=== PATIENT | female | born 1940 | race Caucasian/White ===

== ENCOUNTER → 2023-06-23 07:07 | Outpatient (REF) | payer MEDICARE, BC, SELFPAY ==
[2023-06-23] MEDS: LEXISCAN 0.400000000000000022 MG IV (08:56)
[2023-06-23] MEDS: FLUSH (NSS) 1 FLUSH IV (08:56)
== END ==
LOC: RCS 07:07
PROVIDERS: ATTENDING PHYSICIAN Internal Medicine Cardiovascular Disease; FAMILY PHYSICIAN Internal Medicine
DX: R07.9 Chest pain, unspecified (principal)
CPT/HCPCS: 78452; 93017; A9500; J2785

== ENCOUNTER → 2023-08-17 08:59 | Outpatient (REF) | payer MEDICARE, BC, SELFPAY | LOC: RCS 08:59 | PROVIDERS: ATTENDING PHYSICIAN Internal Medicine Cardiovascular Disease; FAMILY PHYSICIAN Internal Medicine | DX: I49.3 Ventricular premature depolarization (principal) | CPT/HCPCS: 93225; 93226 ==

== ENCOUNTER → 2023-09-08 14:40 | Outpatient (REF) | payer MEDICARE, BC, SELFPAY | LOC: RCS 14:40 | PROVIDERS: ATTENDING PHYSICIAN Internal Medicine Cardiovascular Disease; FAMILY PHYSICIAN Internal Medicine | DX: I49.3 Ventricular premature depolarization (principal); R06.09 Other forms of dyspnea | CPT/HCPCS: 93306 ==

== ENCOUNTER 2024-02-12 11:56 | Emergency (ER) | payer MEDICARE, BC, SELFPAY ==
[2024-02-12 12:04] VITALS: BP 116/69
[2024-02-12 12:25] LABS: % Basophils 0.9 % (0-2); % Eosinophils 0.6 % (0-6); % Immature Granulocytes 0.4 % (0-0.5); % Lymphocytes 10.1 % (20.5-51.1); Absolute Basophils 0.1 10^3/uL (0-0.2); Absolute Eosinophils 0.1 10^3/uL (0-0.7); Absolute Lymphocytes 0.8 10^3/uL (1.2-3.4); Absolute Monocytes 0.6 10^3/uL (0.1-0.6); Absolute Neutrophils 6.3 10^3/uL (1.4-6.5); Hemoglobin 11.5 g/dL (12.0-16.0); Mean Corp Hgb Conc. 32.9 g/dL (33.0-37.0); Mean Corpuscular Hgb 29.8 pg (27.0-31.0); Mean Corpuscular Volume 90.7 fL (81.0-99.0); Mean Platelet Volume 10.5 fL (7.4-10.4); Nucleated Red Blood Cells % 0 %; Platelet Count 188 10^3/uL (130-400); Red Blood Cell Count 3.86 10^6/uL (4.20-5.40); Red Cell Dist. Width 15.3 % (11.5-14.5); White Blood Cell Count 7.9 10^3/uL (4.8-10.8)
--- NOTE | 2024-02-12 12:41 | ED.GENMED ---
History of Present Illness
General
Chief Complaint: Breathing Problem
Source: patient and family
Exam Limitations: none
Time Seen by Provider: 02/12/24 12:29
Nursing documentation reviewed up to this point in time: agreed with
History of Present Illness
History of Present Illness:
83-year-old female with past medical history of hypertension myocarditis, asthma, renal insufficiency presenting to the emergency department today with concerns of shortness of breath over the past 3 days also generalized weakness upper respiratory
symptoms of cough. Took 2 COVID test which were negative. Denies any specific fevers has noticed intermittent palpitations but has had multiple Holter monitor showing frequent disease. She is currently taking metoprolol for this.
Past History
Past History
ED Past Medical History: GERD, HTN, Hypothyroidism, Other (Diverticulitis, Vasculitis, degenerative osteoarthritis, kidney stones, ureteral anomaly) and Other (Vertigo, renal insufficiency)
ED Past Surgical History: Bowel resection (for perforaction with colostomy), Cholecystectomy, Orthopedic (Bilateral hip replacement) and Tonsilectomy
Social History
Tobacco: Non-smoker
Alcohol: Occasional
Drug: None
Personal:
Living: assisted living
Employment: Retired
Family History
Family History: Other
Review of Systems
Review of Systems
Allergies reviewed?: Yes
All Other Systems: ROS reviewed and negative except as documented in HPI and ROS
Phy Exam
Physical Exam
Physical Exam:
GENERAL: Alert , in no apparent distress
EYE: pupils equal and reactive
NECK: Supple, no significant adenopathy.
ENT: Swollen boggy nasal turbinates postnasal drip, otherwise uvula midline no significant tonsillar swelling o/p clr, mmm.
CARDIAC: Regular rate and rhythm .
LUNGS: Bronchospastic cough clear breath sounds bilaterally, no acute respiratory distress, no wheezes/rales/rhonchi
ABDOMEN: Soft, without focal tenderness, no r/g, no cvat
NEUROLOGICAL: Alert and oriented, no focal neuro deficits
SKIN: Warm and dry, skin intact.
MUSCULOSKELETAL: No edema, well perfused.
PSYCH: Normal and appropriate interaction.
Scores
Heart Failure Risk
Heart Failure Risk Score: Not Applicable
Course
Orders/Labs/Results
Orders:
Orders
02/12/24 11:57
Electrocardiogram (*1) Urgent
Reason for Study: Shortness of Breath
EKG- Treatment ONCE
02/12/24 12:08
Chest [CR Chest - 2 Views ] Urgent
Comment:
Reason For Exam: SOB
02/12/24 12:13
Complete Blood Count/With Diff Urgent
Comprehensive Metabolic Panel Urgent
NT-proBNP Urgent
Troponin I Urgent
02/12/24 13:02
Azithromycin [Zithromax] 500 mg PO NOW STA
Dexamethasone Sod Phosphate [Decadron] 10 mg IV NOW STA
Ipratropium/Albuterol Sulfate [Duoneb] 3 ml INH R NOW ONE
02/12/24 13:24
Influenza A+B Rapid Molecular Urgent
SUMMER Source: Nasal Swab
Specimen Description:
Abnormal Lab Results
02/12/24
12:13
RBC 3.86 L 10^6/uL
(4.20-5.40)
Hgb 11.5 L g/dL
(12.0-16.0)
Hct 35.0 L %
(37.0-47.0)
MCHC 32.9 L g/dL
(33.0-37.0)
RDW 15.3 H %
(11.5-14.5)
MPV 10.5 H fL
(7.4-10.4)
Absolute Lymphs (auto) 0.8 L 10^3/uL
(1.2-3.4)
Neutrophils % 80.0 H %
(42.2-75.2)
Lymphocytes % 10.1 L %
(20.5-51.1)
Chloride 109 H mmol/L
(98-107)
Carbon Dioxide 18 L mmol/L
(22-30)
BUN 28 H mg/dl
(7-17)
Creatinine 1.2 H mg/dL
(0.6-1.0)
Glucose 124 H mg/dl
(70-99)
02/12/24 12:13
02/12/24 12:13
Vital Signs
Initial and Last Documented VS:
Initial Vital Signs
Temp Pulse Resp BP Pulse Ox
98.9 F 90 20 116/69 98
02/12/24 12:04 02/12/24 12:04 02/12/24 12:04 02/12/24 12:04 02/12/24 12:04
Last Documented Vital Signs
Temp Pulse Resp BP Pulse Ox
98.9 F 92 21 129/67 97
02/12/24 12:04 02/12/24 14:30 02/12/24 14:30 02/12/24 14:09 02/12/24 14:30
MDM/Problems Addressed
MDM/Problems Addressed:
84-year-old female presenting to the emergency department today with concerns of shortness of breath over the past 3 days. She has had generalized fatigue as well as a nasal congestion sore throat. She took 2 negative COVID test. On arrival here
patient afebrile vital signs are normal patient no obvious distress pulse ox in the high 90s. Patient did have a bronchospastic cough on exam concerning this was given steroid as well as breathing treatment she claims symptoms improved.
Additionally was given azithromycin as the chest x-ray did show some consolidation on the right side though may just be pleural effusion. No obvious pulmonary edema on chest x-ray no leg swelling. Recent echo without severe heart failure. BNP was
elevated but symptoms do not seem specifically consistent with heart failure. Patient was walked claimed that she feels well and would like to go home for ongoing treatment of potential viral syndrome with potential secondary inflammatory reaction.
She was written for prescription and given return precautions.
*Critical Care Note
Total Time (30-74mins, 75-104mins- exclusive of procedures): Not Applicable
ED Attending Note
-
Portions of this chart may have been created with voice recognition software.� Occasional wrong word or��sound alike� substitutions may have occurred due to the inherent limitations of voice recognition software.
Discharge Plan
Departure
Patient Disposition: Home (Routine Discharge)
Date of Disposition: 02/12/24
Time of Disposition: 14:49
Patient with high blood pressure during this ER visit?: No
Condition: Good
Covid-19: Not Applicable
Discharge Problem:
Acute bronchitis, Cough, Wheeze
Instructions: Acute Bronchitis, Adult (DC)
Prescriptions:
New
prednisone 20 mg tablet
40 mg PO DAILY 3 Days Qty: 6 0RF
azithromycin 500 mg tablet
500 mg PO DAILY 2 Days Qty: 2 0RF
albuterol sulfate 90 mcg/actuation HFA aerosol inhaler
2 puff inhalation Q6H PRN (Reason: shortness of breath or wheezing) Qty: 8.5 0RF
No Action
levothyroxine 25 MCG tablet
37.5 mcg PO DAILY@0700
hydroxychloroquine 200 MG tablet
200 mg PO BID
rosuvastatin 10 MG tablet
10 mg PO HS
clopidogrel 75 MG tablet
75 mg PO DAILY
biotin 5 MG capsule
5 mg PO DAILY
esomeprazole magnesium 40 MG capsule,delayed release(DR/EC)
40 mg PO DAILY
acetaminophen 325 MG tablet
650 mg PO Q4HPRN PRN (Reason: MILD PAIN) 0RF
prednisone 2.5 MG tablet
2.5 mg PO DAILY
metoprolol succinate 25 MG tablet extended release 24 hr
75 mg PO BID
cholecalciferol (vitamin D3) 2,000 UNITS tablet
2,000 units PO DAILY
magnesium oxide 500 MG tablet
500 mg PO QPM
lisinopril 5 MG tablet
5 mg PO DAILY
colchicine 0.6 MG tablet
0.3 mg PO BID
aspirin 81 MG tablet,delayed release (DR/EC)
81 mg PO DAILY
Referrals:
Evangelina Ortiz MD [Family Provider] -
Activity Restrictions/Additional Instructions:
You came to the emergency department today with concerns of cough shortness of breath worsening over the past few days. Here your vital signs were normal you may have a viral syndrome with secondary complication. You are started on azithromycin
please take this daily for the next 2 days. Please also use the albuterol inhaler as needed and prednisone 40 mg once daily for the next 4 days. Please follow closely with her primary care doctor for reassessment. Immediately return for any
worsening, new or concerning symptoms.
Interventions
Interventions:
*Risk Screen - Suicide Last Done: 02/12/24 12:04
*General Assessment Last Done: 02/12/24 12:04
*Neglect/Abuse Screening Last Done: 02/12/24 12:04
*ED COVID-19 Vaccine History Last Done: 02/12/24 12:51
ED- Cardiac Assessment Last Done: 02/12/24 12:49
ED- Pulmonary Assessment Last Done: 02/12/24 12:49
Discharge Date and Time
Print Language: KITTITIAN
[2024-02-12 12:52] LABS: NT-proBNP 8150 pg/ml; Troponin I < 0.012 ng/ml
[2024-02-12 12:58] LABS: ALT (SGPT) 12 U/L (0-35); AST (SGOT) 21 U/L (14-36); Albumin 4.1 g/dl (3.5-5.0); Alkaline Phosphatase 49 U/L (38-126); Blood Urea Nitrogen 28 mg/dl (7-17); Calcium 9.8 mg/dl (8.4-10.2); Carbon Dioxide 18 mmol/L (22-30); Chloride 109 mmol/L (98-107); Glucose 124 mg/dl (70-99); Potassium 4.4 mmol/L (3.5-5.1); Sodium 142 mmol/L (135-145); Total Protein 6.4 g/dl (6.3-8.2); eGFR 45.19
[2024-02-12 13:00] VITALS: BP 130/80
[2024-02-12] MEDS: DUONEB 3 ML INH (13:25)
[2024-02-12] MEDS: ZITHROMAX 500 MG PO (13:25)
[2024-02-12] MEDS: DECADRON 10 MG IV (13:26)
[2024-02-12 14:00] VITALS: BP 107/73
[2024-02-12 14:09] VITALS: BP 129/67
== END 2024-02-12 15:02 | disposition home or self-care (01) ==
LOC: EMR 11:56
PROVIDERS: EMERGENCY PHYSICIAN Emergency Medicine; FAMILY PHYSICIAN Internal Medicine
DX: J20.9 Acute bronchitis, unspecified (principal); R05.9 Cough, unspecified; R06.2 Wheezing; I10 Essential (primary) hypertension; N28.9 Disorder of kidney and ureter, unspecified; K57.92 Diverticulitis of intestine, part unspecified, without perforation or abscess without bleeding; K21.9 Gastro-esophageal reflux disease without esophagitis; E03.9 Hypothyroidism, unspecified; M19.90 Unspecified osteoarthritis, unspecified site; I34.0 Nonrheumatic mitral (valve) insufficiency; J45.909 Unspecified asthma, uncomplicated; Z79.82 Long term (current) use of aspirin; Z96.643 Presence of artificial hip joint, bilateral; Z87.442 Personal history of urinary calculi; Z85.820 Personal history of malignant melanoma of skin; Z86.79 Personal history of other diseases of the circulatory system; Z98.0 Intestinal bypass and anastomosis status; Z90.49 Acquired absence of other specified parts of digestive tract; Z88.1 Allergy status to other antibiotic agents; Z88.2 Allergy status to sulfonamides; Z88.8 Allergy status to other drugs, medicaments and biological substances
CPT/HCPCS: 99284; 96374; 94640; 71046; 80053; 83880; 84484; 85025; 87502; 93005

== ENCOUNTER 2024-03-01 10:07 | Emergency (ER) | payer MEDICARE, BC, SELFPAY ==
[2024-03-01 10:20] VITALS: BP 111/58
[2024-03-01 10:39] LABS: % Basophils 0.9 % (0-2); % Eosinophils 4.9 % (0-6); % Immature Granulocytes 0.5 % (0-0.5); % Lymphocytes 9.5 % (20.5-51.1); % Monocytes 8.2 % (1.7-9.3); Absolute Basophils 0.1 10^3/uL (0-0.2); Absolute Eosinophils 0.3 10^3/uL (0-0.7); Absolute Lymphocytes 0.5 10^3/uL (1.2-3.4); Absolute Monocytes 0.5 10^3/uL (0.1-0.6); Absolute Neutrophils 4.2 10^3/uL (1.4-6.5); Hematocrit 35.4 % (37.0-47.0); Hemoglobin 11.6 g/dL (12.0-16.0); Mean Corp Hgb Conc. 32.8 g/dL (33.0-37.0); Mean Corpuscular Hgb 30.9 pg (27.0-31.0); Mean Corpuscular Volume 94.1 fL (81.0-99.0); Mean Platelet Volume 10.3 fL (7.4-10.4); Nucleated Red Blood Cells % 0 %; Platelet Count 153 10^3/uL (130-400); Red Blood Cell Count 3.76 10^6/uL (4.20-5.40); Red Cell Dist. Width 15.6 % (11.5-14.5); White Blood Cell Count 5.5 10^3/uL (4.8-10.8)
[2024-03-01 10:52] LABS: ALT (SGPT) 14 U/L (0-35); AST (SGOT) 23 U/L (14-36); Alkaline Phosphatase 40 U/L (38-126); Blood Urea Nitrogen 21 mg/dl (7-17); Calcium 9.3 mg/dl (8.4-10.2); Carbon Dioxide 21 mmol/L (22-30); Chloride 110 mmol/L (98-107); Glucose 113 mg/dl (70-99); Potassium 4.1 mmol/L (3.5-5.1); Sodium 143 mmol/L (135-145); Total Bilirubin 0.8 mg/dl (0.2-1.3); Total Protein 6.2 g/dl (6.3-8.2); eGFR 45.19
[2024-03-01 11:03] LABS: Troponin I < 0.012 ng/ml
--- NOTE | 2024-03-01 13:30 | ED.GENMED ---
History of Present Illness
<Maria Teresa Jason MD, Resident - Last Filed: 03/01/24 15:07>
General
Chief Complaint: Breathing Problem
Source: patient
Exam Limitations: none
Time Seen by Provider: 03/01/24 13:00
History of Present Illness
History of Present Illness:
Patient is an 83-year-old female with past medical history of CHF, CAD with worsening shortness of breath and wheezing around 5 this morning while lying in bed. Patient also mentions 'tight pressure' around her chest which lasted for about 30
minutes. SOB improved with sitting up. No nausea/vomiting or diaphoresis. CP has been going on for several weeks.
Past History
<Maria Teresa Jason MD, Resident - Last Filed: 03/01/24 15:07>
Past History
ED Past Medical History: GERD, HTN, Hypothyroidism, Other (Diverticulitis, Vasculitis, degenerative osteoarthritis, kidney stones, ureteral anomaly, ) and Other (Vertigo, renal insufficiency)
ED Past Surgical History: Bowel resection (for perforaction with colostomy), Cholecystectomy, Orthopedic (Bilateral hip replacement) and Tonsilectomy
Social History
Tobacco: Non-smoker
Alcohol: Occasional
Drug: None
Personal:
Living: assisted living
Employment: Retired
Family History
Family History: Other
Review of Systems
<Maria Teresa Jason MD, Resident - Last Filed: 03/01/24 15:07>
Review of Systems
Allergies reviewed?: Yes
All Other Systems: ROS reviewed and negative except as documented in HPI and ROS
Phy Exam
<Maria Teresa Jason MD, Resident - Last Filed: 03/01/24 15:07>
General Physical Exam
General Presentation: well appearing and no apparent distress
Cardiovascular Exam
Cardiovascular Exam: regular rate/rhythm, no edema, no JVD and no murmur
Pulmonary Exam
Pulmonary Exam: lungs clear, no respiratory distress, no rales, no crackles and no wheezing
Scores
<Maria Teresa Jason MD, Resident - Last Filed: 03/01/24 15:07>
Heart Failure Risk
Heart Failure Risk Score: Not Applicable
Course
<Maria Teresa Jason MD, Resident - Last Filed: 03/01/24 15:07>
Orders/Labs/Results
Orders:
Orders
03/01/24 10:08
Electrocardiogram (*1) Urgent
Reason for Study: Chest Pain
EKG- Treatment ONCE
03/01/24 10:23
CR Chest - 2 Views Urgent
Comment:
Reason For Exam: respiratory distress
03/01/24 10:27
Complete Blood Count/With Diff Urgent
Comprehensive Metabolic Panel Urgent
Troponin I Urgent
Abnormal Lab Results
03/01/24
10:27
RBC 3.76 L 10^6/uL
(4.20-5.40)
Hgb 11.6 L g/dL
(12.0-16.0)
Hct 35.4 L %
(37.0-47.0)
MCHC 32.8 L g/dL
(33.0-37.0)
RDW 15.6 H %
(11.5-14.5)
Absolute Lymphs (auto) 0.5 L 10^3/uL
(1.2-3.4)
Neutrophils % 76.0 H %
(42.2-75.2)
Lymphocytes % 9.5 L %
(20.5-51.1)
Chloride 110 H mmol/L
(98-107)
Carbon Dioxide 21 L mmol/L
(22-30)
BUN 21 H mg/dl
(7-17)
Creatinine 1.2 H mg/dL
(0.6-1.0)
Glucose 113 H mg/dl
(70-99)
Total Protein 6.2 L g/dl
(6.3-8.2)
03/01/24 10:27
03/01/24 10:27
Vital Signs
Initial and Last Documented VS:
Initial Vital Signs
Temp Pulse Resp BP Pulse Ox
97.9 F 88 18 111/58 97
03/01/24 10:20 03/01/24 10:20 03/01/24 10:20 03/01/24 10:20 03/01/24 10:20
Last Documented Vital Signs
Temp Pulse Resp BP Pulse Ox
97.9 F 88 18 111/58 97
03/01/24 10:20 03/01/24 10:20 03/01/24 10:20 03/01/24 10:20 03/01/24 10:20
<Issac Fitzgerald MD - Last Filed: 03/01/24 15:05>
Orders/Labs/Results
Orders:
Orders
03/01/24 10:08
Electrocardiogram (*1) Urgent
Reason for Study: Chest Pain
EKG- Treatment ONCE
03/01/24 10:23
CR Chest - 2 Views Urgent
Comment:
Reason For Exam: respiratory distress
03/01/24 10:27
Complete Blood Count/With Diff Urgent
Comprehensive Metabolic Panel Urgent
Troponin I Urgent
Abnormal Lab Results
03/01/24
10:27
RBC 3.76 L 10^6/uL
(4.20-5.40)
Hgb 11.6 L g/dL
(12.0-16.0)
Hct 35.4 L %
(37.0-47.0)
MCHC 32.8 L g/dL
(33.0-37.0)
RDW 15.6 H %
(11.5-14.5)
Absolute Lymphs (auto) 0.5 L 10^3/uL
(1.2-3.4)
Neutrophils % 76.0 H %
(42.2-75.2)
Lymphocytes % 9.5 L %
(20.5-51.1)
Chloride 110 H mmol/L
(98-107)
Carbon Dioxide 21 L mmol/L
(22-30)
BUN 21 H mg/dl
(7-17)
Creatinine 1.2 H mg/dL
(0.6-1.0)
Glucose 113 H mg/dl
(70-99)
Total Protein 6.2 L g/dl
(6.3-8.2)
03/01/24 10:27
03/01/24 10:27
Vital Signs
Initial and Last Documented VS:
Initial Vital Signs
Temp Pulse Resp BP Pulse Ox
97.9 F 88 18 111/58 97
03/01/24 10:20 03/01/24 10:20 03/01/24 10:20 03/01/24 10:20 03/01/24 10:20
Last Documented Vital Signs
Temp Pulse Resp BP Pulse Ox
97.9 F 88 18 111/58 97
03/01/24 10:20 03/01/24 10:20 03/01/24 10:20 03/01/24 10:20 03/01/24 10:20
<Maria Teresa Jason MD, Resident - Last Filed: 03/01/24 15:07>
*Critical Care Note
Total Time (30-74mins, 75-104mins- exclusive of procedures): 30
ED Attending Note
<Maria Teresa Jason MD, Resident - Last Filed: 03/01/24 15:07>
-
Portions of this chart may have been created with voice recognition software.� Occasional wrong word or��sound alike� substitutions may have occurred due to the inherent limitations of voice recognition software.
<Issac Fitzgerald MD - Last Filed: 03/01/24 15:05>
ED Attending Note
Patient seen and examined by attending physician: Yes
I performed a history and physical exam of patient and discussed management with resident, I reviewed resident's note and agree with documented findings and plan of care.: Yes
ED Attending Note:
83-year-old female with shortness of breath at about 5 AM. She has had ongoing shortness of breath with exertion for a while. She is currently asymptomatic. She has had continuous chest tightness for weeks if not longer. This is also been a
chronic issue. Currently she is at her baseline.
GENERAL: Alert and oriented in no apparent distress
EYE: Orbits normal.
NECK: Supple
CARDIAC: Regular rate and rhythm without any obvious murmurs.
LUNGS: Clear breath sounds,normal
ABDOMEN: Soft, without focal tenderness or distention
NEUROLOGICAL: Alert and oriented , grossly non-focal
SKIN: Warm and dry, no rash or lesion, no discoloration, skin intact.
MUSCULOSKELETAL: No edema,no deformity.Good color
PSYCH: Normal and appropriate interaction.
EKG is stable. Troponin is negative after 6 to 7 hours of symptoms. Chest x-ray is negative. She is not in heart failure. Highly doubt pulmonary emboli. No leg pain leg swelling risk factors. No pleuritic chest pain. No hypoxia. No
tachycardia. Symptoms have resolved. Patient ambulated without difficulty. I feel she is stable for discharge to follow-up
Discharge Plan
Departure
Patient Disposition: Home (Routine Discharge)
Date of Disposition: 03/01/24
Time of Disposition: 15:04
Patient with high blood pressure during this ER visit?: No
Discharge Problem:
Transient dyspnea, Ongoing chest tightness
Instructions: Shortness of Breath (Dyspnea) (DC), Chest Pain CBC Follow Up
Prescriptions:
No Action
levothyroxine 25 MCG tablet
37.5 mcg PO DAILY@0700
hydroxychloroquine 200 MG tablet
200 mg PO BID
rosuvastatin 10 MG tablet
10 mg PO HS
clopidogrel 75 MG tablet
75 mg PO DAILY
biotin 5 MG capsule
5 mg PO DAILY
esomeprazole magnesium 40 MG capsule,delayed release(DR/EC)
40 mg PO DAILY
acetaminophen 325 MG tablet
650 mg PO Q4HPRN PRN (Reason: MILD PAIN) 0RF
prednisone 2.5 MG tablet
2.5 mg PO DAILY
metoprolol succinate 25 MG tablet extended release 24 hr
75 mg PO BID
cholecalciferol (vitamin D3) 2,000 UNITS tablet
2,000 units PO DAILY
magnesium oxide 500 MG tablet
500 mg PO QPM
lisinopril 5 MG tablet
5 mg PO DAILY
colchicine 0.6 MG tablet
0.3 mg PO BID
aspirin 81 MG tablet,delayed release (DR/EC)
81 mg PO DAILY
prednisone 20 mg tablet
40 mg PO DAILY 3 Days Qty: 6 0RF
azithromycin 500 mg tablet
500 mg PO DAILY 2 Days Qty: 2 0RF
albuterol sulfate 90 mcg/actuation HFA aerosol inhaler
2 puff inhalation Q6H PRN (Reason: shortness of breath or wheezing) Qty: 8.5 0RF
Referrals:
Evangelina Ortiz MD [Family Provider] -
Interventions
Interventions:
*Risk Screen - Suicide Last Done: 03/01/24 10:20
*General Assessment Last Done: 03/01/24 10:20
*Neglect/Abuse Screening Last Done: 03/01/24 10:20
ED- Cardiac Assessment Last Done: 03/01/24 12:30
ED- Pulmonary Assessment Last Done: 03/01/24 12:30
Discharge Date and Time
Print Language: JAPANESE
[2024-03-01 15:00] VITALS: BP 126/62
== END 2024-03-01 15:22 | disposition home or self-care (01) ==
LOC: EMR 10:07
PROVIDERS: Emergency Medicine; EMERGENCY PHYSICIAN Emergency Medicine; FAMILY PHYSICIAN Internal Medicine
DX: R06.09 Other forms of dyspnea (principal); R07.89 Other chest pain; I11.0 Hypertensive heart disease with heart failure; I50.9 Heart failure, unspecified; I25.10 Atherosclerotic heart disease of native coronary artery without angina pectoris; E03.9 Hypothyroidism, unspecified; K21.9 Gastro-esophageal reflux disease without esophagitis; Z87.442 Personal history of urinary calculi; Z90.49 Acquired absence of other specified parts of digestive tract; Z93.3 Colostomy status; Z96.643 Presence of artificial hip joint, bilateral
CPT/HCPCS: 99283; 71046; 80053; 84484; 85025; 93005

== ENCOUNTER → 2024-03-05 12:31 | Outpatient (REF) | payer MEDICARE, BC, SELFPAY | LOC: RCS 12:31 | PROVIDERS: ATTENDING PHYSICIAN Internal Medicine Cardiovascular Disease; FAMILY PHYSICIAN Internal Medicine | DX: I49.3 Ventricular premature depolarization (principal) | CPT/HCPCS: 93225; 93226 ==

== ENCOUNTER → 2024-03-07 12:22 | Outpatient (REF) | payer MEDICARE, BC, SELFPAY ==
[2024-03-07 13:44] LABS: % Basophils 1.7 % (0-2); % Eosinophils 0.2 % (0-6); % Immature Granulocytes 0.4 % (0-0.5); % Lymphocytes 16.8 % (20.5-51.1); % Monocytes 11.6 % (1.7-9.3); % Neutrophils 69.3 % (42.2-75.2); Absolute Basophils 0.1 10^3/uL (0-0.2); Absolute Lymphocytes 0.9 10^3/uL (1.2-3.4); Absolute Monocytes 0.6 10^3/uL (0.1-0.6); Absolute Neutrophils 3.8 10^3/uL (1.4-6.5); Hematocrit 34.3 % (37.0-47.0); Hemoglobin 11.1 g/dL (12.0-16.0); Mean Corp Hgb Conc. 32.4 g/dL (33.0-37.0); Mean Corpuscular Hgb 29.4 pg (27.0-31.0); Mean Platelet Volume 11.1 fL (7.4-10.4); Nucleated Red Blood Cells % 0 %; Platelet Count 182 10^3/uL (130-400); Red Blood Cell Count 3.77 10^6/uL (4.20-5.40); Red Cell Dist. Width 15.5 % (11.5-14.5); White Blood Cell Count 5.4 10^3/uL (4.8-10.8)
[2024-03-07 14:21] LABS: ALT (SGPT) 15 U/L (0-35); AST (SGOT) 24 U/L (14-36); Albumin 4.2 g/dl (3.5-5.0); Alkaline Phosphatase 41 U/L (38-126); Blood Urea Nitrogen 26 mg/dl (7-17); Calcium 9.7 mg/dl (8.4-10.2); Carbon Dioxide 25 mmol/L (22-30); Chloride 108 mmol/L (98-107); Glucose 95 mg/dl (70-99); HDL Cholesterol 65 mg/dl; LDL Cholesterol, Calculated 29 mg/dl; Potassium 4.8 mmol/L (3.5-5.1); Sodium 145 mmol/L (135-145); Total Bilirubin 0.7 mg/dl (0.2-1.3); Total Cholesterol 110 mg/dl (50-199); Total Protein 6.5 g/dl (6.3-8.2); Triglyceride 83 mg/dl (10-149); Very Low Density Lipoprotein 16 mg/dl (0-30); eGFR 37.56
[2024-03-07 14:48] LABS: TSH Reflex To Free T4 < 0.02 uIU/ml (0.47-4.68)
[2024-03-07 15:17] LABS: Free T4 0.88 ng/dl (0.78-2.19)
== END ==
LOC: REG 12:22
PROVIDERS: ATTENDING PHYSICIAN Internal Medicine
DX: D49.0 Neoplasm of unspecified behavior of digestive system (principal); I10 Essential (primary) hypertension; E03.9 Hypothyroidism, unspecified; K21.9 Gastro-esophageal reflux disease without esophagitis
CPT/HCPCS: 36415; 80053; 80061; 84439; 84443; 85025

== ENCOUNTER 2024-03-10 22:18 | Inpatient (IN) | payer MEDICARE, BC, SELFPAY ==
[2024-03-10] VITALS (7 sets, daily range): BP systolic 98–137; BP diastolic 66–89; BMI 32.4; BMI 30.8
--- NOTE | 2024-03-10 18:13 | ED.GENMED ---
History of Present Illness
General
Chief Complaint: Breathing Problem
Source: patient and family
Time Seen by Provider: 03/10/24 17:41
History of Present Illness
History of Present Illness:
This is an 83-year-old female who presents with shortness of breath. Patient states that symptoms began to worsen about a month ago. She admits that she is chronically little bit short of breath and has had vasculitis in the past. The patient
states that her shortness of breath over the last month seemed a little worse this morning. She also admits that this afternoon seemed like it again got worse. She reports that she has no pressure in the top part of her chest but feels like a vice
is grabbing her around the lower part of her chest. She denies hemoptysis. No leg swelling. No orthopnea. She does admit to exertional dyspnea. No chest pain. No palpitations. She has seen pulmonology who performed pulmonary function tests.
She states she has been told 'everything looks good'. Patient was treated with some steroids and bronchodilators and admits that she felt a little better while on it but it wears off quickly and she is not sure if it just made her brain feel like
she was doing something. No recent travel.
Past History
Past History
ED Past Medical History: GERD, HTN, Hypothyroidism, Other (Diverticulitis, Vasculitis, degenerative osteoarthritis, kidney stones, ureteral anomaly, ) and Other (Vertigo, renal insufficiency)
ED Past Surgical History: Bowel resection (for perforaction with colostomy), Cholecystectomy, Orthopedic (Bilateral hip replacement) and Tonsilectomy
Social History
Tobacco: Non-smoker
Alcohol: Occasional
Drug: None
Personal:
Living: assisted living
Employment: Retired
Family History
Family History: Other
Phy Exam
Physical Exam
Physical Exam:
CONSTITUTIONAL Patient alert and oriented to person, place and time. Well-appearing. Vital signs reviewed.
HEAD atraumatic, normocephalic.
EYES eyelids normal to inspection, Extraocular muscles intact, Conjunctiva normal, Sclera normal.
NECK normal range of motion, Trachea midline, no jugular venous distention.
RESPIRATORY CHEST No respiratory distress noted, Chest expansion equal, fine crackles at bilateral bases
CARDIOVASCULAR regular rate and rhythm, Heart sounds normal.
ABDOMEN abdomen nontender, Bowel sounds normal. No distention.
BACK normal inspection, no obvious deformities
UPPER EXTREMITY range of motion normal, Motor strength normal, no cyanosis, no edema.
LOWER EXTREMITY range of motion normal, Motor strength normal, no cyanosis, no edema.
NEURO Speech normal, No focal motor deficits, Brethren coma scale 15, Memory normal, Cranial Nerves intact to screening exam.
SKIN skin warm, dry, and normal in color.
PSYCHIATRIC patient oriented to person place and time, Normal affect.
Scores
Heart Failure Risk
Heart Failure Risk Score: Yes
History of Stroke or TIA: No
History of intubation for respiratory distress: No
Heart rate on ED arrival >/= 110: No
SaO2 <90% on arrival on room air: Yes
HR >/=110 during 3min walk test (or too ill to perform test): Yes
ECG has acute ischemic changes: No
Urea >/=12mmol/L (BUN 33.6mg/dL): No
Serum CO2>/=35mmol/L: No
Troponin I or T elevated to HI Level (0.4mg/dL): No
NT-proBNP >/=5,000ng/L (5,000pg/ml): Yes
HF Risk Score: 4
Admission Status: HIGH RISK 26.1% Consider SNF treatment or admission to hospital
Course
Orders/Labs/Results
Orders:
Orders
03/10/24 Breakfast
Regular
At Your Request: Full Participation
Fluid Restriction: 1440 mL/day (48 oz)
03/10/24 17:55
Electrocardiogram (*1) Stat
Reason for Study: Other
Other Reason for Exam: chest pain
Cardiac Monitoring- Treatment ONCE
EKG- Treatment ONCE
03/10/24 18:26
Complete Blood Count/With Diff Urgent
Comprehensive Metabolic Panel Urgent
NT-proBNP Urgent
Troponin I Urgent
03/10/24 18:51
CT Chest Pe Study Urgent
Comment:
Reason For Exam: hypoxia
03/10/24 20:55
Bumetanide [Bumex] 1 mg IV NOW STA
03/10/24 21:40
Admit/Transfer Patient As Directed
Co-Sign Provider:
Level of Care: Inpatient admission
Assign to:: Telemetry
Physician / Group: Nicholas
Diagnosis: CHF
Reason for Telemetry: Acute Heart Failure
Date to Stop Telemetry: 03/13/24
Time to Stop Telemetry: 11:00
Reason for Hospitalization: CHF
Expected length of stay greater than two midnights?: Yes
ELOS- Estimated Length of Stay in days: 3
I certify the patient meets the requirements for IP care: Yes
PRN Pain Medication Management As Directed
May give lesser potent ordered pain med per pt: Yes
preference::
Protocol:: Medication orders for pain may be administered in a
manner that supports deferring to patient preference
when the pt is:
- Requesting an ordered lesser potent pain medication.
Least to most potent pain medications are defined
as: acetaminophen < NSAID < tramadol < opioids
(morphine, oxycodone, hydromorphone).
- Requesting a lesser dose of the same medication IF
ORDERED.
- Requesting a less intrusive route of administration
if both routes are prescribed by the provider (PO <
IV).
03/10/24 21:41
Code Status As Directed
Resuscitation Status: Full Code
03/10/24 22:43
Acetaminophen [Tylenol] 650 mg PO Q4HPRN PRN
Albuterol Nebs [Ventolin Nebules] 2.5 mg INH R Q4HPRN PRN
03/10/24 22:43
Echo 2D MMode Doppler [Echo 2D MMode Color/Doppler] Routine
Reason for Study: CHF
CARDIOLOGY CONSULT Routine
Consulting Provider: Debbie Wood
Was physician already notified: No
Reason for consult: CHF
Consult Notification Routine
Specialty to Notify: Cardiology
Consult Notification Routine
Specialty to Notify: Pulmonary
PULMONARY CONSULT Routine
Consulting Provider: Ridge Marie
Was physician already notified: No
Reason for consult: ? ILD / Vasculitis
TSH Reflex To Free T4 Routine
Activity As Directed
Activity Level: Ambulate
With Assistance
EKG with chest pain [ECG as needed] As Directed
ECG as needed for:: Chest Pain
I/O [Intake/ Output] As Directed
Frequency: Per unit guidelines
Vital Signs As Directed
Frequency: Per unit guidelines
Weight As Directed
Frequency: Daily
Chest PT [Rx Chest Pt] [RESP] Routine
Special Instructions: BID
Cpap [RESP] Routine
Patient to use own unit?: No
Set Pressure (cm H2O): 8
Instructions: HS and PRN
Incentive Spirometry [Rx Incentive Spirometry] [RESP] Routine
Frequency: q1h while awake
Oxygen Therapy [O2 Therapy] [RESP] Routine
Titrate/Wean O2 to maintain O2 sat greater than (%): 94
Ot Eval And Treat Routine
PT Consult [Pt Eval And Treat] Routine
Activity Level: Ambulate
With Assistance
DX Deep Vein Thrombosis Video Routine
03/11/24 06:00
Basic Metabolic Panel IN AM
Cardiovascular Evaluation IN AM
Complete Blood Count/No Diff IN AM
Troponin I Q6H
03/11/24 08:00
Aspirin Chewable [Low Strength Aspirin] 81 mg PO DAILY
Bumetanide [Bumex] 1 mg IV Q12H
Clopidogrel Bisulfate [Plavix] 75 mg PO DAILY
Escitalopram Oxalate [Lexapro] 20 mg PO DAILY
FOLic ACID [Folvite] 3 mg PO DAILY
Guaifenesin [Mucinex] 600 mg PO Q12
Hydroxychloroquine [Plaquenil] 200 mg PO BID
esomeprazole magnesium 40 mg PO DAILY
03/11/24 12:00
Troponin I Q6H
03/11/24 18:00
Enoxaparin Sodium [Lovenox] 40 mg SC QPM
03/11/24 22:00
Rosuvastatin Calcium [Crestor] 10 mg PO HS
03/13/24 11:00
DC Protocol for Telemetry ONCE
03/17/24 08:00
Methotrexate Sodium [Methotrexate] 7.5 mg PO WEEKLY
Abnormal Lab Results
03/10/24
18:26
RBC 3.75 L 10^6/uL
(4.20-5.40)
Hgb 11.2 L g/dL
(12.0-16.0)
Hct 33.4 L %
(37.0-47.0)
RDW 15.8 H %
(11.5-14.5)
Abs Immat Gran (auto) 0.1 H 10^3/uL
(0-0.05)
Absolute Neuts (auto) 8.0 H 10^3/uL
(1.4-6.5)
Absolute Lymphs (auto) 0.2 L 10^3/uL
(1.2-3.4)
Immature Gran % 0.7 H %
(0-0.5)
Neutrophils % 91.7 H %
(42.2-75.2)
Lymphocytes % 2.7 L %
(20.5-51.1)
Chloride 109 H mmol/L
(98-107)
Carbon Dioxide 20 L mmol/L
(22-30)
BUN 30 H mg/dl
(7-17)
Creatinine 1.1 H mg/dL
(0.6-1.0)
Glucose 132 H mg/dl
(70-99)
03/10/24 18:26
03/10/24 18:26
Vital Signs
Initial and Last Documented VS:
Initial Vital Signs
Pulse Resp BP Pulse Ox
95 22 137/75 97
03/10/24 16:55 03/10/24 16:55 03/10/24 16:55 03/10/24 16:55
Last Documented Vital Signs
Temp Pulse Resp BP Pulse Ox
97.7 F 98 18 127/78 96
03/10/24 23:26 03/10/24 23:26 03/10/24 23:26 03/10/24 23:26 03/10/24 23:26
MDM/Problems Addressed
MDM/Problems Addressed:
Dyspnea, acute decompensated congestive heart failure
*Pulse Oximetry
Patient hypoxic: yes
*EKG
Interpreted by ED Provider?: Yes
Interpretation: abnormal
Rate: normal
Rhythm: sinus
[place]: normal axis
Ischemia: other (She does have some ST depression in V3 through V4. T wave versions in V5 and V6 in 1 and aVL. Anterior V3 leads to look a little bit different than prior but may be related to lead placement. Lateral leads looks similar to prior
EKG)
*[employer]er Hand Interpretation
Rate: normal
Interpretation: normal
Rhythm: sinus
*Critical Care Note
Total Time (30-74mins, 75-104mins- exclusive of procedures): Not Applicable
Data Reviewed
Source: patient and family
Prescriptions/Medications Considered But Not Given:
Consider Lasix but does report sulfa allergy. Will trial Bumex and watch closely. Doubt any concern for crossover with sulfonamide
Patient Management
Discussion with other providers: Hospitalist
Escalation/DeEscalation of care consider admission/obs:
83-year-old female with a CHF. Has been hypoxic and short of breath for some time. Admit. IV diuretics
ED Attending Note
-
Portions of this chart may have been created with voice recognition software.� Occasional wrong word or��sound alike� substitutions may have occurred due to the inherent limitations of voice recognition software.
Discharge Plan
Departure
Patient Disposition: Admit
Date of Disposition: 03/10/24
Time of Disposition: 20:49
Admit to: Telemetry
Presentation/result/management discussed w/ accepting MD/DO: Hospitalist
Discharge Problem:
CHF (congestive heart failure)
Interventions
Interventions:
*Risk Screen - Suicide Last Done: 03/10/24 18:30
*General Assessment Last Done: 03/10/24 18:30
*Neglect/Abuse Screening Last Done: 03/10/24 18:30
ED- Fall Risk Assessment Last Done: 03/10/24 18:30
*ED COVID-19 Vaccine History Last Done: 03/10/24 18:30
*Nursing Disposition Last Done: 03/10/24 22:42
ED- Cardiac Assessment Last Done: 03/10/24 17:48
ED- Pulmonary Assessment Last Done: 03/10/24 18:30
Discharge Date and Time
Discharge Date/Time: 03/10/24 22:42
[2024-03-10 18:34] LABS: % Basophils 0.3 % (0-2); % Immature Granulocytes 0.7 % (0-0.5); % Lymphocytes 2.7 % (20.5-51.1); % Monocytes 4.6 % (1.7-9.3); % Neutrophils 91.7 % (42.2-75.2); Absolute Immature Granulocytes 0.1 10^3/uL (0-0.05); Absolute Lymphocytes 0.2 10^3/uL (1.2-3.4); Absolute Monocytes 0.4 10^3/uL (0.1-0.6); Hematocrit 33.4 % (37.0-47.0); Hemoglobin 11.2 g/dL (12.0-16.0); Mean Corp Hgb Conc. 33.5 g/dL (33.0-37.0); Mean Corpuscular Hgb 29.9 pg (27.0-31.0); Mean Corpuscular Volume 89.1 fL (81.0-99.0); Mean Platelet Volume 10.2 fL (7.4-10.4); Nucleated Red Blood Cells % 0 %; Platelet Count 188 10^3/uL (130-400); Red Blood Cell Count 3.75 10^6/uL (4.20-5.40); Red Cell Dist. Width 15.8 % (11.5-14.5); White Blood Cell Count 8.8 10^3/uL (4.8-10.8)
[2024-03-10 18:49] LABS: ALT (SGPT) 16 U/L (0-35); AST (SGOT) 20 U/L (14-36); Albumin 4.2 g/dl (3.5-5.0); Alkaline Phosphatase 42 U/L (38-126); Blood Urea Nitrogen 30 mg/dl (7-17); Calcium 9.4 mg/dl (8.4-10.2); Carbon Dioxide 20 mmol/L (22-30); Chloride 109 mmol/L (98-107); Glucose 132 mg/dl (70-99); Potassium 4.5 mmol/L (3.5-5.1); Sodium 141 mmol/L (135-145); Total Bilirubin 0.7 mg/dl (0.2-1.3); Total Protein 6.4 g/dl (6.3-8.2); eGFR 50.17
[2024-03-10 18:59] LABS: NT-proBNP 9510 pg/ml; Troponin I < 0.012 ng/ml
[2024-03-10] MEDS: BUMEX 1 MG IV (21:09)
--- NOTE | 2024-03-10 21:50 | HPS.HSE ---
Family Physician
-
Family Physician: Evangelina Ortiz
Chief Complaint
-
SOB
History of Present Illness
Patient is an 83y F with PMH significant for p ANCA vasculitis, ELO on CPAP, ASCVD and CKD who presents to ED complaining of SOB x several weeks. Patient states that her current symptoms started in January of this year. She is followed by
Pulmonary and Cardiology and has seen them as well as her PCP and was seen in the ED here on two occasions for these symptoms. Patient was treated with courses of steroids (currently on her 3rd course) with perhaps temporary improvement in her
symptoms.
Patient describes feeling SOB - mostly in the AM. She has audible wheezing and sensation of tightness / band around her lower chest / upper abdomen. She reports 'loose' cough in the AM; however, it is non-productive. She denies any sore throat,
fevers / chills, etc.
She denies any palpitations, edema, abdominal distention. Not lightheaded or dizzy.
Patient follows her weight at home and notes that she has LOST weight lately.
Today patient woke from sleep around 3 AM feeling extremely short of breath. She took her albuterol inhaler without relief and remained significantly SOB until she was able to finally get back to sleep around 7 AM.
When she woke later in the day she decided to present to the ED for further evaluation.
Patient states that recent med changes include: changing metoprolol to verapamil (for PVCs), adding Nexium for suspected GERD, stopping T4 supplement based on lab results.
Medical History
Past Medical History
Past Medical History: Reports Other
Additional Past Medical History:
ASCVD / PAD / TIA
ELO on CPAP
pANCA Vasculitis (Renal)
Migraine Headaches
GERD
CKD III
Melanoma
Diverticular Disease
Past Surgical History: Reports Other
Additional Past Surgical History:
Bilateral MARCELINA
SMA Stenting
T&A
Cholecystectomy
Colectomy / Colostomy (Perf Diverticulitis)
JUDY / Appendectomy / Colostomy Takedown
PVC / VT Ablation
Social History
Tobacco: Non-smoker
Alcohol: Occasional
Drug: None
Family History
Family History: Not pertinent
Allergies / Home Medications
Allergies reflects when Allergies were last updated in [facility].
Home Medications with original date entered in [facility]
Allergy/Medication List:
Allergies
Allergy/AdvReac Type Severity Reaction Status Date / Time
dapsone Allergy 'small Verified 03/10/24 17:01
blisters'
pantoprazole sodium Allergy 'MAKES ME Verified 03/10/24 17:01
[From Protonix] SICK'
Sulfa (Sulfonamide Allergy Hives Verified 03/10/24 17:01
Antibiotics)
sulfamethoxazole Allergy Hives Verified 03/10/24 17:01
[From Bactrim DS]
trimethoprim Allergy Hives Verified 03/10/24 17:01
[From Bactrim DS]
Home Medications
hydroxychloroquine 200 mg tablet 200 mg PO BID RA 07/15/19
rosuvastatin 10 mg tablet 10 mg PO HS High cholesterol 12/31/19
clopidogrel 75 mg tablet 75 mg PO DAILY Heart disease/condition 01/03/20
biotin 5 mg capsule 5 mg PO DAILY Supplement 04/30/20
esomeprazole magnesium 40 mg capsule,delayed release 40 mg PO DAILY Gastrointestinal issue 04/30/20
aspirin 81 mg tablet,delayed release 81 mg PO DAILY Blood clot prevention/tx 08/19/20
cholecalciferol (vitamin D3) 50 mcg (2,000 unit) tablet 2,000 units PO DAILY Supplement 08/19/20
albuterol sulfate 90 mcg/actuation aerosol inhaler 2 puff inhalation Q6H PRN shortness of breath or wheezing #8.5 grams 02/12/24
escitalopram oxalate 20 mg tablet 20 mg PO DAILY 03/10/24
folic acid 5 mg capsule 15 mg PO DAILY 03/10/24
methotrexate sodium 2.5 mg tablet 7.5 mg PO SA 03/10/24
verapamil 180 mg tablet,extended release 180 mg PO DAILY 03/10/24
Review of Systems
-
History Source: Patient
A 12 point ROS was completed and negative except as noted: Yes
Constitutional: Reports Weight Loss and Fatigue; Denies Fever or Chills
EENT: Denies Sore Throat
Respiratory: Reports Cough and Trouble Breathing; Denies Hemoptysis
Cardiac: Reports Chest Pain; Denies Diaphoresis, Palpitations or Syncope
Abdomen/GI: Denies Abdominal Pain, Nausea, Vomiting or Diarrhea
: Denies Dysuria, Frequency or Flank Pain
Musculoskeletal: Denies Joint Pain or Edema
Neurological: Denies Dizzy or Headache
Psych: Denies Depression or Anxiety
Physical Exam
Vital Signs
Vital Signs
Pulse Resp BP Pulse Ox
86 16 137/89 92
03/10/24 21:09 03/10/24 18:15 03/10/24 21:09 03/10/24 18:30
Physical Exam
General: Other (83y F in no acute distress. Some noted conversational dyspnea.)
HEENT: Moist mucous membranes, PERRLA and Other (No JVD or HJR.)
Respiratory: Other (Few bibasilar rales. Decreased BS in general throughout. Mild expiratory wheezes.)
Cardiac: S1/S2 and Regular Rhythm; No Murmur
GI: Soft, Non Tender, Non Distended and Normal Bowel Sounds
Musculoskeletal: No Clubbing, No Cyanosis and No Edema
Neuro: AO x 3
Laboratory Results
-
03/10/24 18:26
03/10/24 18:26
Laboratory Results
Total Bilirubin 0.7 mg/dl (0.2-1.3) 03/10/24 18:26
AST 20 U/L (14-36) 03/10/24 18:26
ALT 16 U/L (0-35) 03/10/24 18:26
Alkaline Phosphatase 42 U/L (38-126) 03/10/24 18:26
Troponin I < 0.012 ng/ml 03/10/24 18:26
Impression/Plan
-
A/P: Patient is an 83y F with PMH significant for ASCVD, PVCs, ELO and remote history of pANCA vasculitis who presents to ED complaining of several weeks of shortness of breath.
Acute HF - Unknown Type
- Admit for further evaluation and treatment.
- Patient with weeks of symptoms and no improvement / no lasting improvement with steroids, nebs, etc.
- CT done in the ED today show ground glass opacities and bilateral effusions c/w volume overload / pulm edema.
- BNP is significantly elevated - though patient states she has been losing weight at home.
- No signs of right-sided heart failure.
- CT is changed compared to prior (2020) - which showed subpleural scarring / bronchiectasis but no effusions or active ground glass opacities.
- Continue bumetanide BID for now.
- Check Echo.
- Cardio evaluation for additional recommendations.
pANCA Vasculitis
- Apparently stable x years.
- Patient remains on hydroxychloroquine and MTX for maintenance.
- Recent dyspnea / CT findings potentially related ; however, no pulmonary symptoms with initial episode of vasculitis and no significant or lasting improvement in current symptoms despite multiple courses of steroids.
- Will hold further systemic steroids for now.
- Pulmonary evaluation for additional recommendations.
ELO on CPAP
- Stable. Continue nightly PAP therapy.
ASCVD
- Stable. EKG with non-specific T wave abnormality that is unchanged from multiple prior tracings.
- Troponin undetectable.
- Continue ASA, statin, etc.
- Echo as noted above.
GERD
- Started on Nexium recently for possibility that current dyspnea / cough is related to GERD.
- Unfortunately, patient cannot tolerate pantoprazole and can only take Nexium.
- Can continue Nexium if patient can have this brought in from home.
CKD III
- Stable. Renal function is at / near known baseline.
- Follow for changes with diuresis.
DVT Prophylaxis: Lovenox
Code Status: Full
[2024-03-11 00:56] LABS: Troponin I < 0.012 ng/ml
--- NOTE | 2024-03-11 02:45 | PTCARENOTE ---
Pt admitted from ED to 3W. Pt AAOx3. Ambulated from stretcher to bed with assist x1. VSS, on engine monitor. Pt remains on 2L O2 at this time. Purewick in place. Pt oriented to room and call fernando within reach.
[2024-03-11 03:45] VITALS: BP 110/60
[2024-03-11 05:29] LABS: Troponin I < 0.012 ng/ml
[2024-03-11 05:41] LABS: Hematocrit 32.3 % (37.0-47.0); Hemoglobin 10.7 g/dL (12.0-16.0); Mean Corp Hgb Conc. 33.1 g/dL (33.0-37.0); Mean Corpuscular Hgb 29.4 pg (27.0-31.0); Mean Corpuscular Volume 88.7 fL (81.0-99.0); Mean Platelet Volume 10.8 fL (7.4-10.4); Platelet Count 189 10^3/uL (130-400); Red Blood Cell Count 3.64 10^6/uL (4.20-5.40); Red Cell Dist. Width 15.5 % (11.5-14.5); White Blood Cell Count 7.2 10^3/uL (4.8-10.8)
[2024-03-11 06:00] VITALS: BMI 30.3
[2024-03-11 06:12] LABS: Blood Urea Nitrogen 30 mg/dl (7-17); Calcium 8.8 mg/dl (8.4-10.2); Carbon Dioxide 21 mmol/L (22-30); Chloride 108 mmol/L (98-107); Estimated Creatinine Clearance 39 ml/min; Glucose 92 mg/dl (70-99); HDL Cholesterol 72 mg/dl; LDL Cholesterol, Calculated 35 mg/dl; Potassium 4.3 mmol/L (3.5-5.1); Sodium 142 mmol/L (135-145); Total Cholesterol 121 mg/dl (50-199); Triglyceride 72 mg/dl (10-149); Very Low Density Lipoprotein 14 mg/dl (0-30); eGFR 50.17
[2024-03-11 06:39] LABS: TSH Reflex To Free T4 0.16 uIU/ml (0.47-4.68)
[2024-03-11 07:08] LABS: Free T4 0.84 ng/dl (0.78-2.19)
[2024-03-11 07:29] VITALS: BP 120/67
--- NOTE | 2024-03-11 08:19 | CON.CAR ---
Addendum entered and electronically signed by Dhruv Chen MD (Ellie) 03/11/24 13:53:
I saw and examined the patient.
The BEHAVIORAL PEDIATRICIAN's note was reviewed and I agree with the note.
Comment: 83-year-old female with past medical history of frequent PVCs, mild to moderate AR, interstitial lung disease, rheumatoid arthritis, vasculitis, PAD, and hypertension who is here for evaluation of dyspnea. She reports that she has had
worsening dyspnea over the past 1 month which finally brought her to the hospital. Her echocardiogram here showed a drop in ejection fraction from 50% to 30-35%. Her previously mild MR is now moderate to severe. Patient reports that she has not
had any chest pain. She is fairly active and has been limited for the past month due to her shortness of breath. She denies palpitations, leg swelling, presyncope, or syncope. She considers her dry weight to be 177 pounds but has not weighed
herself in the past month. Labs here notable for negative troponin and creatinine at baseline (1.1). Telemetry reveals 4 beats of NSVT, otherwise in sinus rhythm.
In summary, this is an 83-year-old female with new heart failure with reduced ejection fraction. Possible etiologies include ischemic, medication induced (was recently started on verapamil for PVCs), PVC mediated, or other nonischemic
cardiomyopathy. She will undergo left heart catheterization tomorrow, and if this is not revealing she will likely need cardiac MRI. In terms of GDMT, she would like to wait until after cardiac catheterization tomorrow to decide about her medical
regimen. She would like to minimize meds and feels like she is already taking a lot. We discussed the cost of Entresto and SGLT2 inhibitors. She will think about this and let us know after catheterization. In the meantime we will switch her
verapamil to carvedilol. If she is amenable, this admission she should be started on ACEi/ARB/ARNi, MRA, and SGLT2i. Continue diuresis with IV Bumex twice daily.
Original Note:
Consultation
Consultation Request
Date/Time Consultation Requested: 03/10/24 4825
Date/Time Consultation Performed: 03/11/24814
Requesting Provider: Dr. Peterson
Performing Provider: Esther FOWLER for Dr. Chen
Reason for Consultation: CHF
Medical History
-
Chief Complaint: SOB
History of Present Illness:
83 y/o female with frequent PVC's (improved with ablation and medical management), mild to moderate AR, interstitial lung disease, rheumatoid arthritis, pANCA vasculitis, PAD s/p SMA stent, hx perimyocarditis, CKD, and hypertension who is here for
evaluation of SOB. Briefly, she has chronic mild SOB for past two years. Then, last month she became more SOB and came to the ER, where she was given abx, steroids, and breathing treatment. She thinks it may have helped, but then last week, she
developed SOB again and yesterday it became quite bad, so she came to the ER. She has been admitted for further evaluation. She is on O2 by nasal cannula and is being diuresed. We are consulted for acute HF. She thinks her weight is up 2 lbs. She
had PND overnight Mon-Monday. Denies orthopnea or edema. Has non-productive cough. There is no chest pain, but her lower rib area feels tight. She has followed with Dr. Ridley, but has recently been seeing Dr. Fortune for EP.
Past Medical History
Past Medical History: Arrhythmias, GERD, HTN, Hypercholesterolemia, Valvular Disease and Other (as above)
Social History
Tobacco: Non-Smoker
Family History
Family History: Reviewed & Not Pertinent
Allergies / Home Medications
Allergy/AdvReac Type Severity Reaction Status Date / Time
dapsone Allergy 'small Verified 03/10/24 17:01
blisters'
pantoprazole sodium Allergy 'MAKES ME Verified 03/10/24 17:01
[From Protonix] SICK'
Sulfa (Sulfonamide Allergy Hives Verified 03/10/24 17:01
Antibiotics)
sulfamethoxazole Allergy Hives Verified 03/10/24 17:01
[From Bactrim DS]
trimethoprim Allergy Hives Verified 03/10/24 17:01
[From Bactrim DS]
�Medication �Instructions �Recorded �Confirmed �Type
hydroxychloroquine 200 mg tablet 200 mg PO BID RA 07/15/19 03/10/24 History
rosuvastatin 10 mg tablet 10 mg PO HS High cholesterol 12/31/19 03/10/24 History
clopidogrel 75 mg tablet 75 mg PO DAILY Heart 01/03/20 03/10/24 History
disease/condition
biotin 5 mg capsule 5 mg PO DAILY Supplement 04/30/20 03/10/24 History
esomeprazole magnesium 40 mg 40 mg PO DAILY Gastrointestinal 04/30/20 03/10/24 History
capsule,delayed release issue
aspirin 81 mg tablet,delayed 81 mg PO DAILY Blood clot 08/19/20 03/10/24 History
release prevention/tx
cholecalciferol (vitamin D3) 50 2,000 units PO DAILY Supplement 08/19/20 03/10/24 History
mcg (2,000 unit) tablet
albuterol sulfate 90 mcg/actuation 2 puff inhalation Q6H PRN 02/12/24 03/10/24 Rx
aerosol inhaler shortness of breath or wheezing
#8.5 grams
escitalopram oxalate 20 mg tablet 20 mg PO DAILY 03/10/24 03/10/24 History
folic acid 5 mg capsule 15 mg PO DAILY 03/10/24 03/10/24 History
methotrexate sodium 2.5 mg tablet 7.5 mg PO SA 03/10/24 03/10/24 History
verapamil 180 mg tablet,extended 180 mg PO DAILY 03/10/24 03/10/24 History
release
Review of Systems
-
History Source: Patient
All other systems: Negative unless noted
Constitutional: Weight Gain (2 lbs)
Respiratory: Cough and Trouble Breathing
Physical Exam
Vital Signs
Temp Pulse Resp BP Pulse Ox
97.9 F 81 17 120/67 96
03/11/24 07:29 03/11/24 07:29 03/11/24 07:29 03/11/24 07:29 03/11/24 07:29
Lab Results
03/11/24 05:01
03/11/24 05:00
Troponin I < 0.012 ng/ml 03/11/24 05:01
Xcj-W-Qeilfycinrg Pept 9510 pg/ml 03/10/24 18:26
Physical Exam
General: Well Developed, Well Nourished and No Apparent Distress
HEENT: Normocephalic and Anicteric
Respiratory: Crackles (b/l bases) and Other (on O2 by NC)
Cardiac: Regular Rhythm
Genito-urinary: Clear Urine
Musculoskeletal: No Edema
Skin: Warm and Dry
Neuro: AO x 3
Psych: Calm
Impression / Plan
-
Acute HF: type unknown
-CT scan and BNP suggestive of CHF, also with rales to bases on lungs. Feels better this AM after diuresis and O2.
-updated echo pending, last echo with EF 50%
-agree with IV diuresis, which requires intensive monitoring. Bumex has been chosen and has been effective- continue.
-CHF education, diet, monitoring (weight, I/O, renal function)
PVC's:
-stable on verapamil, recent Holter as below
-hx ablation 2019, Dr. Wood
SMA stent:
-follows with vascular
-on ASA and statin
AR: mild to moderate on last echo
-assess on updated echo
Interstitial Lung disease:
-pulmonary consulted
-recently treated for bronchitis with steroids
Hypertension:
-stable
HX RA
Vasculitis
Data Reviewed
-
EKG: Tracing Personally Visualized and interpreted (SR with 1st degree AVB, IC RBBB, ST/T abnormalities - anterior and lateral)
CT Scan: Report Reviewed by me (Findings suspicious for congestive heart failure, given the presence of moderate bilateral pleural effusions, groundglass opacity, slightly more localized/confluent groundglass opacity in the left perihilar
distribution, and interstitial prominence.)
Medical Tests (Nuc Med, Echo etc): Report Reviewed by me (holter 03/05/24: NSR, Av 89 bpm, range 68-112 bpm. No bradycardia. Almost no atrial ectopy. Occasional PVCs (1% burden). No VT. A few ventricular couplets. Symptoms correlated with NSR.)
and Other (echo 09/08/23: Mildly reduced left ventricular systolic function. Left ventricular ejection fraction is 50% by Alvarez's method. Global hypokinesis. Stage I diastolic dysfunction suggestive of abnormal relaxation. Aortic sclerosis
with mild to moderate aortic regurgitation.)
Labs: Labs Reviewed by me
Old Records: Reviewed (cath 2020 no obstructive CAD)
[2024-03-11] MEDS: BUMEX 1 MG IV ×2 (08:50→20:51)
[2024-03-11] MEDS: MUCINEX 600 MG PO ×2 (08:53→20:51)
[2024-03-11] MEDS: LEXAPRO 20 MG PO (08:53)
[2024-03-11] MEDS: PLAVIX 75 MG PO (08:53)
[2024-03-11] MEDS: LOW STRENGTH ASPIRIN 81 MG PO (08:53)
[2024-03-11] MEDS: FOLVITE 3 MG PO (08:53)
[2024-03-11] MEDS: PLAQUENIL 200 MG PO ×2 (08:53→20:51)
--- NOTE | 2024-03-11 09:12 | W.PN.HOSP.TC ---
Today's Communication/Plan
-
IV Bumex. Cardiac cath in a.m.
Assessment / Plan
Assessment / Plan
Physical exam:
General: Acute on chronically ill
HEENT: Normocephalic, Atraumatic and Moist Mucous Membranes
Respiratory: Coarse bilateral crackles in the bases; Negative Wheezes, Rales or Rhonchi
Cardiac: Regular Rhythm and S1/S2
GI: Soft, Nontender and Nondistended
Musculoskeletal: No Clubbing, No Cyanosis and not much bilateral lower extremity edema
Neuro: Awake, Alert and Oriented
Psych: Calm
A/P:
Acute HFrEF:
Etiology unclear so workup in progress.
IV diuretics, Bumex 1 mg every 12 hours
BNP upon admission
Monitor strict I/O
Monitor daily weight
Monitor renal function and electrolytes
Reviewed latest echocardiogram on our system--> echocardiogram revealed EF 30 to 35% global hypokinesis, stage II diastolic dysfunction. Also moderate severe mitral regurgitation and mild mitral stenosis as well as moderate aortic regurgitation and
mild aortic stenosis.
Continue guideline-directed medical therapy for heart failure (GDMT)--> verapamil changed to carvedilol for now. Rest of medications will be decided down the road.
Fluid restriction
Salt restriction
Heart failure education
Follow up clinical response
Cardiology consult appreciated
Plan for cardiac cath tomorrow
Acute hypoxic respiratory insufficiency:
Likely related to above
There is also interstitial lung disease, but mild
No evidence of PE by CTA
Cardio and pulmonary consulted
Titrate oxygen
CKD:
Avoid nephrotoxic
Continue monitor renal function
History of P ANCA vasculitis:
She had renal biopsy in the past
On methotrexate and hydroxychloroquine
Follows up with rheumatology as outpatient
History of rheumatoid arthritis:
On methotrexate and hydroxychloroquine.
Follows up with rheumatology as outpatient
She has been weaned off steroids since 2020
History of SMA stenosis:
Status post SMA stent in the past
Hypertension:
Continue current meds
Hyperlipidemia:
Continue statin, rosuvastatin 10 mg p.o. nightly
GERD:
Continue PPI
Depression:
Continue escitalopram 20 mg p.o. daily
History of ischemic colitis with colon resection and colostomy revision and incarcerated umbilical hernia in 2018
History of melanoma incision in 2007
DVT prophylaxis:
Lovenox SQ
CODE STATUS:
Full code
Total time spent on today's encounter was 52 minutes which included time spent in counseling the patient/family regarding diagnosis and treatment plan as listed above, goals of care, and symptom management. Case was discussed with nursing staff,
specialists, and care coordinators/case management. All labs and imaging personally reviewed by me. Remainder the time spent in detailed review of previous records, lab data, imaging, and other medical provider documentation.
Anticipated Discharge: > 48 hours
Subjective/Interval History
-
Date of Service: March 11, 2024
Patient feels better today, less shortness of breath, no chest pain. Afebrile
Objective Data
-
Labs:
Laboratory Results
03/11/24 03/11/24
05:00 05:01
WBC 7.2
Hgb 10.7 L
Hct 32.3 L
Plt Count 189
Sodium 142
Potassium 4.3
Chloride 108 H
Carbon Dioxide 21 L
BUN 30 H
Creatinine 1.1 H
Glucose 92
Calcium 8.8
Vital Signs:
Vital Signs
Temp Pulse Resp BP Pulse Ox
97.9 F 81 17 120/67 96
03/11/24 07:29 03/11/24 07:29 03/11/24 07:29 03/11/24 07:29 03/11/24 07:29
I&O
03/10/24 03/11/24 03/12/24
06:59 06:59 06:59
Intake Total 240 / 240
Output Total 1300 / 1300
Balance -1060 / -1060
[2024-03-11 11:11] VITALS: BP 116/64
[2024-03-11] MEDS: PREVACID 30 MG PO (12:44)
[2024-03-11 12:47] LABS: Troponin I < 0.012 ng/ml
--- NOTE | 2024-03-11 13:13 | CON.INTV ---
Consultation
Consultation Request
Date/Time Consultation Requested: 03/11
Date/Time Consultation Performed: 03/11
Reason for Consultation: Shortness of breath
Medical History
-
History of Present Illness:
History obtained from the chart, outpatient and inpatient medical records and from the patient. Pleasant 83-year-old female with history of valvular disease, vasculitis, rheumatoid arthritis, peripheral arterial disease with SMA stent presents with
increased shortness of breath over the past month, hospitalized twice, now admitted for recurrent shortness of breath. Throughout this, patient admits to lower abdominal discomfort, nonpleuritic. Describes dry cough with no hemoptysis, nausea,
diarrhea, falls, syncope, PND, orthopnea. Cough is worse in the morning, resolves throughout the day. Upon arrival to [facility], pulse 95, breathing at 22, blood pressure 137/75, 97% saturation. Abnormal EKG noted. CT chest confirmed
groundglass opacities with effusions consistent with pulmonary edema. Patient admits to gaining 3 pounds and proBNP was noted to be elevated. Patient admitted for heart failure. We are asked to comment on pulmonary process 03/11
Presently, patient feels breathing and lower chest and upper abdominal discomfort have improved
Of note, patient does describe dysphagia and coughing with eating and drinking
.
PMH: P-ANCA vasculitis on chronic hydroxychloroquine and methotrexate, history of SMA stenosis status post SMA stent, sleep apnea on CPAP therapy, GERD, chronic kidney disease, history of melanoma, hemolytic anemia (dapsone), pericarditis,
peripheral eosinophilia. History of ischemic colitis, umbilical hernia repair, colon resection with colostomy 2017, ureteral surgery 1979. History of cholecystectomy, tonsillectomy, arthroplasty, cataract surgery
Past Medical History
Past Medical History: None (See above)
Past Surgical History: None (See above)
Social History
Tobacco: Non-smoker
Alcohol: None
Drug: None
Employment: Not Employed
Family History
Family History: Other (Father from stroke at age 86, mother at age 78 from supranuclear palsy. Sister at age 67, melanoma. 2 sons with sleep apnea. )
Allergies / Home Medications
Allergies
Allergy/AdvReac Type Severity Reaction Status Date / Time
dapsone Allergy 'small Verified 03/10/24 17:01
blisters'
pantoprazole sodium Allergy 'MAKES ME Verified 03/10/24 17:01
[From Protonix] SICK'
Sulfa (Sulfonamide Allergy Hives Verified 03/10/24 17:01
Antibiotics)
sulfamethoxazole Allergy Hives Verified 03/10/24 17:01
[From Bactrim DS]
trimethoprim Allergy Hives Verified 03/10/24 17:01
[From Bactrim DS]
Home Medications
�Medication �Instructions �Recorded �Confirmed �Last Taken �Type
hydroxychloroquine 200 mg tablet 200 mg PO BID Rheumatoid arthritis 07/15/19 03/10/24 08/19/20 History
rosuvastatin 10 mg tablet 10 mg PO HS High cholesterol 12/31/19 03/10/24 08/18/20 History
clopidogrel 75 mg tablet 75 mg PO DAILY Heart 01/03/20 03/10/24 08/19/20 History
disease/condition
biotin 5 mg capsule 5 mg PO DAILY Supplement 04/30/20 03/10/24 08/19/20 History
esomeprazole magnesium 40 mg 40 mg PO DAILY Gastrointestinal 04/30/20 03/10/24 08/19/20 History
capsule,delayed release issue
aspirin 81 mg tablet,delayed 81 mg PO DAILY Blood clot 08/19/20 03/10/24 08/19/20 History
release prevention/tx
cholecalciferol (vitamin D3) 50 2,000 units PO DAILY Supplement 08/19/20 03/10/24 08/19/20 History
mcg (2,000 unit) tablet
albuterol sulfate 90 mcg/actuation 2 puff inhalation Q6H PRN 02/12/24 03/10/24 Unknown Rx
aerosol inhaler shortness of breath or wheezing
#8.5 grams
escitalopram oxalate 20 mg tablet 20 mg PO DAILY Depression 03/10/24 03/10/24 Unknown History
methotrexate sodium 2.5 mg tablet 7.5 mg PO SA rheumatoid arthritis 03/10/24 03/10/24 Unknown History
verapamil 180 mg tablet,extended 180 mg PO DAILY Blood Pressure 03/10/24 03/10/24 Unknown History
release
folic acid 1 mg tablet 3 mg PO DAILY Supplement 03/11/24 03/11/24 Unknown History
Review of Systems
-
All other systems: Negative unless noted
Vitals / Labs / Diagnostic Testing
Vital Signs
Temp Pulse Resp BP Pulse Ox
98.0 F 81 18 116/64 95
03/11/24 11:11 03/11/24 11:11 03/11/24 11:11 03/11/24 11:11 03/11/24 11:11
Lab Data
03/11/24 05:01
03/11/24 05:00
Diagnostic Testing:
Physical Exam
-
HEENT: Normocephalic and Anicteric
Cardiovascular: S1/S2, Regular Rhythm, Murmur (n), Rub (n) and Peripheral Edema (n)
Respiratory: Wheeze (n), Rales (n), Rhonchi (n) and Non-Labored Respirations
GI: Soft, Non Distended and Non Tender
Neurology: Awake, Alert, Oriented and No Motor Deficits
Skin: Good Color
General: Comfortable
Assessment
-
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
with recurrent respiratory issues over the past month, treated for acute bronchitis and heart failure. We are asked to comment on pulmonary process 03/11/2024
Acute respiratory insufficiency
Acute congestive heart failure
Weight gain, elevated proBNP
Bilateral interstitial changes, pleural effusions
Suspected pulm edema
History of mild interstitial disease per CT chest 2020
Normal PFT, DLCO 61%
Central sleep apnea, AHI 89
On CPAP, auto SV
History of valvular disease, mitral regurgitation/aortic regurgitation
Conditions present prior to admission
History of SMA stenosis status post SMA stent
p-ANCA vasculitis status post renal biopsy
Methotrexate/hydroxychloroquine, follows dermatology
History of rheumatoid arthritis, followed by rheumatology
Weaned off steroids 2020
Chronic kidney disease
Hypertension
Perforated colon with ischemic colitis, colon resection, colostomy revision 12/24/2017
Incarcerated umbilical hernia 12/20/2017
GERD
History of melanoma
Back incision 2007
Hypothyroidism
History of pleuritis/pericarditis
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
Peripheral eosinophilia
Plan/recommendations
At this time, patient appears to be comfortable
Extremely complex medical history
CT imaging consistent with possible pulm edema, bilateral pleural effusions and groundglass abnormality
Although patient with complex medical history, patient describes 3 pound weight gain, cough upon waking up in the morning
Significantly elevated proBNP noted
Moving forward
Await echocardiogram
Cardiology following
Prior history of eosinophilia and ANCA vasculitis noted. She also has a distant history of interstitial disease back in 2020 but this resolved
Doubt autoimmune process at this time but will need to follow
Consider swallowing evaluation if workup is negative as patient does describe occasional episodes of dysphagia/choking
Reviewed with patient at length
We will follow
--- NOTE | 2024-03-11 15:41 | CM ---
Alert awake oriented patient who lives at [facility] .She is independent in driving and all activates of daily living.She use Bipap from [employer] and walker at home. She is on oxygen here but not at home.Offered VN she
declined need . Pt given prices of medicines MD requested .She said she does not want to start on anything new. MD notified.
[facility] in past . [facility] hx
Pharmacy [facility] [address] Ortiz
PLAN Home declined VN
[2024-03-11 15:42] VITALS: BP 127/66
[2024-03-11] MEDS: LOVENOX 40 MG SC (17:58)
[2024-03-11 19:37] VITALS: BP 100/52
[2024-03-11] MEDS: COREG 6.25 MG PO (20:51)
[2024-03-11] MEDS: CRESTOR 10 MG PO (21:00)
[2024-03-11 22:13] VITALS: BMI 30.3
[2024-03-11 23:14] VITALS: BP 98/51
[2024-03-12] VITALS (13 sets, daily range): BP systolic 94–117; BP diastolic 47–66; BMI 29.8
[2024-03-12 05:41] LABS: Hematocrit 36.9 % (37.0-47.0); Hemoglobin 12.4 g/dL (12.0-16.0); Mean Corp Hgb Conc. 33.6 g/dL (33.0-37.0); Mean Corpuscular Hgb 30.5 pg (27.0-31.0); Mean Corpuscular Volume 90.7 fL (81.0-99.0); Mean Platelet Volume 10.7 fL (7.4-10.4); Platelet Count 194 10^3/uL (130-400); Red Blood Cell Count 4.07 10^6/uL (4.20-5.40); Red Cell Dist. Width 15.3 % (11.5-14.5); White Blood Cell Count 6.7 10^3/uL (4.8-10.8)
[2024-03-12 06:04] LABS: Blood Urea Nitrogen 41 mg/dl (7-17); Calcium 9.4 mg/dl (8.4-10.2); Carbon Dioxide 27 mmol/L (22-30); Chloride 100 mmol/L (98-107); Estimated Creatinine Clearance 33 ml/min; Glucose 98 mg/dl (70-99); Sodium 140 mmol/L (135-145); eGFR 41.06
[2024-03-12] MEDS: PREVACID 30 MG PO (07:39)
[2024-03-12] MEDS: COREG 6.25 MG PO ×2 (07:39→20:05)
[2024-03-12] MEDS: PLAQUENIL 200 MG PO ×2 (07:40→20:05)
[2024-03-12] MEDS: MUCINEX 600 MG PO ×2 (07:40→20:05)
[2024-03-12] MEDS: PLAVIX 75 MG PO (07:40)
[2024-03-12] MEDS: BUMEX 1 MG IV (07:40)
[2024-03-12] MEDS: LOW STRENGTH ASPIRIN 81 MG PO (07:40)
[2024-03-12] MEDS: FOLVITE 3 MG PO (07:40)
[2024-03-12] MEDS: LEXAPRO 20 MG PO (07:40)
--- NOTE | 2024-03-12 08:56 | W.PN.HOSP.TC ---
Today's Communication/Plan
-
IV Bumex. cardiac cath
Assessment / Plan
Assessment / Plan
Physical exam:
General: Acute on chronically ill
HEENT: Normocephalic, Atraumatic and Moist Mucous Membranes
Respiratory: Coarse bilateral crackles in the bases; Negative Wheezes, Rales or Rhonchi
Cardiac: Regular Rhythm and S1/S2
GI: Soft, Nontender and Nondistended
Musculoskeletal: No Clubbing, No Cyanosis and not much bilateral lower extremity edema
Neuro: Awake, Alert and Oriented
Psych: Calm
A/P:
Acute HFrEF:
Etiology unclear so workup in progress.
IV diuretics, Bumex 1 mg every 12 hours
BNP upon admission
Monitor strict I/O
Monitor daily weight
Monitor renal function and electrolytes
Reviewed latest echocardiogram on our system--> echocardiogram revealed EF 30 to 35% global hypokinesis, stage II diastolic dysfunction. Also moderate severe mitral regurgitation and mild mitral stenosis as well as moderate aortic regurgitation and
mild aortic stenosis.
Continue guideline-directed medical therapy for heart failure (GDMT)--> verapamil changed to carvedilol for now. Rest of medications will be decided down the road.
Fluid restriction
Salt restriction
Heart failure education
Follow up clinical response
Cardiology consult appreciated
Plan for cardiac cath today
Acute hypoxic respiratory insufficiency:
Likely related to above
There is also interstitial lung disease, but mild
No evidence of PE by CTA
Cardio and pulmonary consulted
Titrate oxygen
CKD:
Avoid nephrotoxic
Continue monitor renal function
History of P ANCA vasculitis:
She had renal biopsy in the past
On methotrexate and hydroxychloroquine
Follows up with rheumatology as outpatient
History of rheumatoid arthritis:
On methotrexate and hydroxychloroquine.
Follows up with rheumatology as outpatient
She has been weaned off steroids since 2020
History of SMA stenosis:
Status post SMA stent in the past
Hypertension:
Continue current meds
Hyperlipidemia:
Continue statin, rosuvastatin 10 mg p.o. nightly
GERD:
Continue PPI
Depression:
Continue escitalopram 20 mg p.o. daily
History of ischemic colitis with colon resection and colostomy revision and incarcerated umbilical hernia in 2019
History of melanoma incision in 2007
DVT prophylaxis:
Lovenox SQ
CODE STATUS:
Full code
Total time spent on today's encounter was 52 minutes which included time spent in counseling the patient/family regarding diagnosis and treatment plan as listed above, goals of care, and symptom management. Case was discussed with nursing staff,
specialists, and care coordinators/case management. All labs and imaging personally reviewed by me. Remainder the time spent in detailed review of previous records, lab data, imaging, and other medical provider documentation.
Anticipated Discharge: 24 - 48 hours
Subjective/Interval History
-
Date of Service: March 12, 2024
patient less sob, no cp, afebrile
Objective Data
-
Labs:
Laboratory Results
03/12/24
05:12
WBC 6.7
Hgb 12.4
Hct 36.9 L
Plt Count 194
Sodium 140
Potassium 4.0
Chloride 100
Carbon Dioxide 27
BUN 41 H
Creatinine 1.3 H
Glucose 98
Calcium 9.4
Vital Signs:
Vital Signs
Temp Pulse Resp BP Pulse Ox
97.5 F 62 12 114/66 93
03/12/24 07:27 03/12/24 07:39 03/12/24 07:27 03/12/24 07:39 03/12/24 07:27
I&O
03/11/24 03/12/24 03/13/24
06:59 06:59 06:59
Intake Total 240 / 240 720 / 720
Output Total 1300 / 1300 2500 / 2500
Balance -1060 / -1060 -1780 / -1780
--- NOTE | 2024-03-12 09:52 | W.PN.PUL3 ---
Today's Communication / Plan
-
Pending cardiac catheterization
Assessment
-
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
with recurrent respiratory issues over the past month, treated for acute bronchitis and heart failure. We are asked to comment on pulmonary process 03/11/2024
Acute congestive heart failure, systolic
EF 35%, new per echocardiogram
Weight gain, elevated proBNP
Acute respiratory insufficiency, improved
Bilateral interstitial changes, pleural effusions
Suspected pulm edema
History of mild interstitial disease per CT chest 2020
Normal PFT, DLCO 61%
Central sleep apnea, AHI 89
On CPAP, auto SV
History of valvular disease, mitral regurgitation/aortic regurgitation
Conditions present prior to admission
History of SMA stenosis status post SMA stent
p-ANCA vasculitis status post renal biopsy
Methotrexate/hydroxychloroquine, follows dermatology
History of rheumatoid arthritis, followed by rheumatology
Weaned off steroids 2020
Chronic kidney disease
Hypertension
Perforated colon with ischemic colitis, colon resection, colostomy revision 12/24/2017
Incarcerated umbilical hernia 12/20/2017
GERD
History of melanoma
Back incision 2007
Hypothyroidism
History of pleuritis/pericarditis
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
Peripheral eosinophilia
Plan/recommendations
At this time, patient appears to be comfortable
Respiratory symptoms have improved
Extremely complex medical history
CT imaging consistent with possible pulm edema, bilateral pleural effusions and groundglass abnormality
Echocardiogram with worsening EF
Although patient with complex medical history, patient describes 3 pound weight gain, cough upon waking up in the morning
Significantly elevated proBNP noted
Moving forward
Plan for cardiac catheterization later today
Cardiology following
Prior history of eosinophilia and ANCA vasculitis noted. She also has a distant history of interstitial disease back in 2020 but this resolved
Doubt autoimmune process at this time but will need to follow
Consider swallowing evaluation if workup is negative as patient does describe occasional episodes of dysphagia/choking
Reviewed with patient at length
We will follow
Subjective Data
-
Date of Service:
Date of Service: March 12, 2024
Subjective:
Patient is feeling much improved. Denies chest pain, cough, lightheadedness, dizziness. Admits to mild nausea. Awaiting catheterization. Denies PND/orthopnea
Objective Data
Data Reviewed
Vital Signs / I&O / Oxygen:
Vital Signs
Temp Pulse Resp BP Pulse Ox
97.5 F 62 12 114/66 93
03/12/24 07:27 03/12/24 07:39 03/12/24 07:27 03/12/24 07:39 03/12/24 07:27
Intake and Output
03/11/24 03/12/24 03/13/24
06:59 06:59 06:59
Intake Total 240 / 240 720 / 720
Output Total 1300 / 1300 2500 / 2500
Balance -1060 / -1060 -1780 / -1780
SaO2 93
Nasal Cannula flow liters per 2
minute
Physical Exam
General: Comfortable
HEENT: Normocephalic and Anicteric
Cardiovascular: S1-S2, Regular Rhythm, Murmur (n) and Rub (n)
Respiratory: Wheeze (n), Crackles (n), Rhonchi (n) and Non-Labored Respirations
GI: Soft, Non Distended and Non Tender
Neurology: Awake, Alert and No Motor Deficits
Skin: Cyanosis (n), Jaundice (n) and Rash (n)
Labs/Micro/Reports
Lab Data
03/12/24 05:12
03/12/24 05:12
--- NOTE | 2024-03-12 15:35 | ITS.CL.CATH ---
[employer] - Catheterization
Cardiac Catheterization
Procedure Report:
CARDIAC CATHETERIZATION REPORT
Date of Procedure: 03/12/2024
Referring: Chirinos MD
Indication: CHF with echo evidence of severe MR and moderate AR
�
HEMODYNAMIC DATA
AO: 110/56
LV: 118/11
The gradient across the aortic valve is approximately 8 mmHg
�
LEFT VENTRICULOGRAPHY: Severe global hypokinesis with EF 31%. There is trace mitral regurgitation.
ASCENDING AORTOGRAPHY: There is 1+ aortic insufficiency. The aortic root and ascending aorta are normal in appearance
�
CORONARY ANGIOGRAPHY
Dominance: Right
Left Main: Normal
LAD: Trivial luminal irregularities
Circumflex: Normal
RCA: Dominant vessel with mild luminal irregularities
�
Closure Device: None-the procedure was performed via the right radial artery. The Yandel's test was normal prior to the procedure.
�
Radiation (mGy): 136
DAP (cm2.Gy): 13.5
Fluoroscopy time: 1.8 minutes
�
CONCLUSIONS
1:�Normal LVEDP (weight 168)
2:�Severe global hypokinesis with EF 31%
3. There is only trace MR by angiography
4. Mild aortic insufficiency
5. Mild aortic stenosis
6. No significant CAD
7. We will begin ARB
�
�
Copy to: Dhruv Chen MD, Evangelina Ortiz MD
�
Dwaine Goldman MD, [facility], [facility]
--- NOTE | 2024-03-12 15:52 | PTCARENOTE ---
pt returned from cardiac cath R band in place right wrist + radial pulse, PO 95% RA. pt denies pain. CB in reach. site checks as ordered
--- NOTE | 2024-03-12 16:38 | CM ---
Pt5 for a cardiac cath today .
Offered VN pt declined need.
Watch for oxygen needs.
PLAN Home no needs
[2024-03-12] MEDS: LOVENOX 40 MG SC (17:30)
[2024-03-12] MEDS: CRESTOR 10 MG PO (21:18)
[2024-03-13 03:35] VITALS: BP 95/45
[2024-03-13 05:37] LABS: Hematocrit 37.4 % (37.0-47.0); Hemoglobin 12.9 g/dL (12.0-16.0); Mean Corp Hgb Conc. 34.5 g/dL (33.0-37.0); Mean Corpuscular Hgb 30.9 pg (27.0-31.0); Mean Corpuscular Volume 89.5 fL (81.0-99.0); Mean Platelet Volume 10.9 fL (7.4-10.4); Platelet Count 196 10^3/uL (130-400); Red Blood Cell Count 4.18 10^6/uL (4.20-5.40); Red Cell Dist. Width 15.1 % (11.5-14.5); White Blood Cell Count 8.3 10^3/uL (4.8-10.8)
[2024-03-13 05:57] LABS: Blood Urea Nitrogen 50 mg/dl (7-17); Calcium 9.2 mg/dl (8.4-10.2); Carbon Dioxide 25 mmol/L (22-30); Chloride 100 mmol/L (98-107); Estimated Creatinine Clearance 30 ml/min; Glucose 101 mg/dl (70-99); Sodium 138 mmol/L (135-145); eGFR 37.56
[2024-03-13 06:00] VITALS: BMI 29.5
[2024-03-13 07:22] VITALS: BP 103/60
[2024-03-13] MEDS: PLAQUENIL 200 MG PO ×2 (07:48→20:55)
[2024-03-13] MEDS: LOW STRENGTH ASPIRIN 81 MG PO (07:48)
[2024-03-13] MEDS: MUCINEX 600 MG PO ×2 (07:48→20:55)
[2024-03-13] MEDS: PREVACID 30 MG PO (07:48)
[2024-03-13] MEDS: LEXAPRO 20 MG PO (07:48)
[2024-03-13] MEDS: FOLVITE 3 MG PO (07:48)
[2024-03-13] MEDS: COREG 6.25 MG PO ×2 (07:48→20:55)
[2024-03-13] MEDS: PLAVIX 75 MG PO (07:49)
[2024-03-13] MEDS: LASIX 40 MG PO (07:49)
--- NOTE | 2024-03-13 08:25 | W.PN.CD ---
Today's Communication / Plan
-
Titrate GDMT as able.
Inpatient cardiac MRI to establish possible etiologies of recurrent cardiomyopathy, worry for vasculitis given her history.
Impression / Plan
-
Acute HFrEF; now to 30-35% global HK
-nonischemic--- unclear etiology. No PVCs on monitor. Given her history of vasculitis will pursue inpatient cardiac MRI.
-euvolemic at 168lb.
-CHF education, diet, monitoring (weight, I/O, renal function)
-Entresto/SGLT2i cost prohbitive continue with arb and bb
PVC's:
-improved with verapamil which unfortunately cannot tolerate due to CMY
-will see how she does with bb
-may need to consider repeat ablation
-will update CMR as op is ammenable
-hx ablation 2019, Dr. Wood
SMA stent:
-follows with vascular
-on ASA/plavix and statin
Valvular disease (mitral regurgitation/AR):
-Initially echo evaluated Ty Cullen to be moderate to severe which was a progression and moderate AR. However catheterization shows only mild aortic regurgitation and trace mitral regurgitation.
-Will continue to monitor over time.
Interstitial Lung disease:
-pulmonary consulted
-recently treated for bronchitis with steroids
Hypertension:
-stable
HX RA
Vasculitis
Subjective:
She still has some shortness of breath but is feeling much better since admission. She still has chest pain but is described as a lower chest wall to upper abdominal pain wrapping around both sides of her ribs, she thinks this may be due to her
back.
Cath:
CONCLUSIONS
1:�Normal LVEDP (weight 168)
2:�Severe global hypokinesis with EF 31%
3. There is only trace MR by angiography
4. Mild aortic insufficiency
5. Mild aortic stenosis
6. No significant CAD
7. We will begin ARB
TTE 03/11/24:Moderately reduced left ventricular systolic function. LV ejection fraction is
30-35% by Alvarez's method of discs.
Global hypokinesis.
Stage II diastolic dysfunction suggestive of abnormal relaxation and increased
filling pressures.
Moderate/severe mitral regurgitation. Mild mitral stenosis.
Moderate aortic regurgitation. Mild aortic stenosis.
Normal right ventricular size and function.
Mild tricuspid regurgitation. Mildly elevated PASP. Estimated pulmonary artery
pressure of 43 mmHg assuming a right atrial pressure of 3 mmHg.
Compared to 09/08/23: LVEF has declined from 50% to 30-35%. MR has progressed
from mild to moderate/severe. AR has progressed from mild/moderate to moderate.
PASP has increased from 23 mmHg to 43 mmHg.
Physical Exam
Vital Signs/Labs
Vital Signs
Temp Pulse Resp BP Pulse Ox
98.0 F 82 17 103/60 98
03/13/24 07:22 03/13/24 07:48 03/13/24 07:22 03/13/24 07:48 03/13/24 07:22
03/12/24 03/13/24 03/14/24
06:59 06:59 06:59
Actual Weight 76.249 kg 75.568 kg
03/13/24 05:02
03/13/24 05:02
Magnesium 2.0 mg/dl (1.6-2.3) 03/12/24 05:12
Triglycerides 72 mg/dl (10-149) 03/11/24 05:00
LDL Cholesterol, Calc 35 mg/dl 03/11/24 05:00
VLDL Cholesterol, Calc 14 mg/dl (0-30) 03/11/24 05:00
HDL Cholesterol 72 mg/dl 03/11/24 05:00
Free T4 0.84 ng/dl (0.78-2.19) 03/11/24 05:00
03/10/24
18:26
Dkr-T-Rcnhoqdrsoy Pept 9510
LAB Results
03/10/24 03/10/24 03/11/24
18:26 22:43 00:18
Troponin I < 0.012 Cancelled < 0.012
03/11/24 03/11/24
05:01 12:11
Troponin I < 0.012 < 0.012
Physical Exam
Constitutional: No acute distress
Cardiovascular: Rhythm & rate is regular, Pedal edema is absent, JVD pressure is normal and Systolic murmur absent
Respiratory: Respiratory effort normal, Lungs clear to auscul., Wheeze Absent, Crackles Absent and Rhonchi Absent
Neuro/Psych: AO x 3
Data Reviewed
-
Date of Service: March 13, 2024
Medical Decision Making: Review of Case with other Provider (Dr. Burgos, will pursue inpatient cardiac MRI)
EKG: Other (Telemetry with sinus rhythm no PVCs.)
--- NOTE | 2024-03-13 09:06 | W.PN.HOSP.TC ---
Today's Communication/Plan
-
Cardiac MRI. Inflammatory markers.
Assessment / Plan
Assessment / Plan
Physical exam:
General: Acute on chronically ill
HEENT: Normocephalic, Atraumatic and Moist Mucous Membranes
Respiratory: Coarse bilateral crackles in the bases; Negative Wheezes, Rales or Rhonchi
Cardiac: Regular Rhythm and S1/S2
GI: Soft, Nontender and Nondistended
Musculoskeletal: No Clubbing, No Cyanosis and not much bilateral lower extremity edema
Neuro: Awake, Alert and Oriented
Psych: Calm
Cardiac cath:
1:�Normal LVEDP (weight 168)
2:�Severe global hypokinesis with EF 31%
3. There is only trace MR by angiography
4. Mild aortic insufficiency
5. Mild aortic stenosis
6. No significant CAD
7. We will begin ARB
�
A/P:
Acute HFrEF:
Non ischemic cardiomyopathy
IV diuretics, Bumex 1 mg every 12 hours
BNP upon admission 9510
Monitor strict I/O
Monitor daily weight
Monitor renal function and electrolytes
Reviewed latest echocardiogram on our system--> echocardiogram revealed EF 30 to 35% global hypokinesis, stage II diastolic dysfunction. Also moderate severe mitral regurgitation and mild mitral stenosis as well as moderate aortic regurgitation and
mild aortic stenosis.
Continue guideline-directed medical therapy for heart failure (GDMT)--> verapamil changed to carvedilol for now. Rest of medications will be decided down the road.
Fluid restriction
Salt restriction
Heart failure education
Follow up clinical response
Cardiology consult appreciated
Status post cardiac cath as above
Discussed with cardiology today on 03/13 and some suspicion for vasculitis involvement--> plan for cardiac MRI
Will check sed rate, CRP, LFTs, urinalysis, C3 and C4 complement in a.m.
Acute hypoxic respiratory insufficiency:
Likely related to above
There is also interstitial lung disease, but mild
No evidence of PE by CTA
Cardio and pulmonary consulted
Titrate oxygen
CKD:
Avoid nephrotoxic
Continue monitor renal function
History of P ANCA vasculitis:
She had renal biopsy in the past
On methotrexate and hydroxychloroquine
Follows up with rheumatology as outpatient
History of rheumatoid arthritis:
On methotrexate and hydroxychloroquine.
Follows up with rheumatology as outpatient
She has been weaned off steroids since 2020
History of SMA stenosis:
Status post SMA stent in the past
Hypertension:
Continue current meds
Hyperlipidemia:
Continue statin, rosuvastatin 10 mg p.o. nightly
GERD:
Continue PPI
Depression:
Continue escitalopram 20 mg p.o. daily
History of ischemic colitis with colon resection and colostomy revision and incarcerated umbilical hernia in 2018
History of melanoma incision in 2007
DVT prophylaxis:
Lovenox SQ
CODE STATUS:
Full code
Total time spent on today's encounter was 52 minutes which included time spent in counseling the patient/family regarding diagnosis and treatment plan as listed above, goals of care, and symptom management. Case was discussed with nursing staff,
specialists, and care coordinators/case management. All labs and imaging personally reviewed by me. Remainder the time spent in detailed review of previous records, lab data, imaging, and other medical provider documentation.
Anticipated Discharge: 24 - 48 hours
Subjective/Interval History
-
Date of Service: March 13, 2024
Patient still has some chest discomfort and shortness of breath but overall better.
Objective Data
-
Labs:
Laboratory Results
03/13/24
05:02
WBC 8.3
Hgb 12.9
Hct 37.4
Plt Count 196
Sodium 138
Potassium 4.0
Chloride 100
Carbon Dioxide 25
BUN 50 H
Creatinine 1.4 H
Glucose 101 H
Calcium 9.2
Vital Signs:
Vital Signs
Temp Pulse Resp BP Pulse Ox
98.0 F 82 17 103/60 98
03/13/24 07:22 03/13/24 07:48 03/13/24 07:22 03/13/24 07:48 03/13/24 07:22
I&O
03/12/24 03/13/24 03/14/24
06:59 06:59 06:59
Intake Total 720 / 720 360 / 360
Output Total 2500 / 2500 300 / 300
Balance -1780 / -1780 60 60
[2024-03-13 10:56] VITALS: BP 103/58
--- NOTE | 2024-03-13 11:02 | W.PN.PUL3 ---
Today's Communication / Plan
-
Continue with management per cardiology
Patient will require new machine given severe central apnea and cardiomyopathy
This will be coordinated through our office
Continue with plan follow-up in the next few weeks
Disposition efforts
We will sign off. Please call with questions
Assessment
-
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
with recurrent respiratory issues over the past month, treated for acute bronchitis and heart failure. We are asked to comment on pulmonary process 03/11/2024
Acute congestive heart failure, systolic
EF 35%, new per echocardiogram
Weight gain, elevated proBNP
Cardiac cath negative, EF 31%
Acute respiratory insufficiency, improved
Bilateral interstitial changes, pleural effusions
Suspected pulm edema
History of mild interstitial disease per CT chest 2020
Normal PFT, DLCO 61%
Central sleep apnea, AHI 89
On CPAP, auto SV
History of valvular disease, mitral regurgitation/aortic regurgitation
Conditions present prior to admission
History of SMA stenosis status post SMA stent
p-ANCA vasculitis status post renal biopsy
Methotrexate/hydroxychloroquine, follows dermatology
History of rheumatoid arthritis, followed by rheumatology
Weaned off steroids 2020
Chronic kidney disease
Hypertension
Perforated colon with ischemic colitis, colon resection, colostomy revision 12/24/2017
Incarcerated umbilical hernia 12/20/2017
GERD
History of melanoma
Back incision 2007
Hypothyroidism
History of pleuritis/pericarditis
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
Peripheral eosinophilia
Plan/recommendations
At this time, patient appears to be comfortable
Respiratory symptoms have improved
Extremely complex medical history
CT imaging consistent with possible pulm edema, bilateral pleural effusions and groundglass abnormality
Echocardiogram with worsening EF
Cardiac catheterization without coronary disease, EF documented at 31%. Mild valvular disease noted
Moving forward
Continue with management per heart failure per cardiology
Cause of cardiomyopathy unclear. Patient already on BiPAP at home, awaiting new machine
Severe central apnea noted
Recommend follow-up with pulmonary as previously discussed in the next few weeks
Attempt to obtain new machine
Prior history of eosinophilia and ANCA vasculitis noted. She also has a distant history of interstitial disease back in 2020 but this resolved
Doubt autoimmune process at this time but will need to follow
Consider swallowing evaluation if workup is negative as patient does describe occasional episodes of dysphagia/choking
Not indicated at this time
Reviewed with patient at length
We will sign off. Please call with questions
Subjective Data
-
Date of Service:
Date of Service: March 13, 2024
Subjective:
Patient feels much improved. Denies chest pain, chest tightness, lightheadedness, dizziness. She is fatigued.
Objective Data
Data Reviewed
Vital Signs / I&O / Oxygen:
Vital Signs
Temp Pulse Resp BP Pulse Ox
98.3 F 80 17 103/58 97
03/13/24 10:56 03/13/24 10:56 03/13/24 10:56 03/13/24 10:56 03/13/24 10:56
Intake and Output
03/12/24 03/13/24 03/14/24
06:59 06:59 06:59
Intake Total 720 / 720 360 / 360
Output Total 2500 / 2500 300 / 300
Balance -1780 / -1780 60 / 60
SaO2 97
Nasal Cannula flow liters per 2
minute
Physical Exam
General: Comfortable
HEENT: Normocephalic and Anicteric
Cardiovascular: S1-S2, Regular Rhythm, Murmur (n) and Rub (n)
Respiratory: Wheeze (n), Crackles (n), Rhonchi (n) and Non-Labored Respirations
GI: Soft, Non Distended and Non Tender
Neurology: Awake, Alert and No Motor Deficits
Skin: Cyanosis (n), Jaundice (n) and Rash (n)
Labs/Micro/Reports
Lab Data
03/13/24 05:02
03/13/24 05:02
[2024-03-13 15:11] VITALS: BP 108/54
--- NOTE | 2024-03-13 17:19 | CM ---
Pt for a cardiac MRI tomorrow .
Offered VN pt declined need.
she said [place] son will drive her home
Watch for oxygen needs.
PLAN Home no needs
[2024-03-13] MEDS: LOVENOX 40 MG SC (19:11)
[2024-03-13 19:25] VITALS: BP 111/58
[2024-03-13 20:15] LABS: Urine Albumin Negative (Neg - Trace); Urine Bilirubin Negative (Negative); Urine Character Clear (Clear); Urine Color Yellow; Urine Glucose Negative (Negative); Urine Ketone Negative (Negative); Urine Leukocyte Negative (Negative); Urine Nitrite Negative (Negative); Urine Occult Blood Negative (Negative); Urine Urobilinogen Negative (Neg - 1+)
[2024-03-13] MEDS: CRESTOR 10 MG PO (20:55)
[2024-03-13 23:45] VITALS: BP 100/55
[2024-03-14 03:40] VITALS: BP 108/60
[2024-03-14 06:00] VITALS: BMI 29.7
[2024-03-14 06:52] LABS: % Basophils 1.1 % (0-2); % Eosinophils 5.9 % (0-6); % Immature Granulocytes 1.3 % (0-0.5); % Lymphocytes 10.7 % (20.5-51.1); % Monocytes 9.9 % (1.7-9.3); % Neutrophils 71.1 % (42.2-75.2); Absolute Basophils 0.1 10^3/uL (0-0.2); Absolute Eosinophils 0.5 10^3/uL (0-0.7); Absolute Immature Granulocytes 0.1 10^3/uL (0-0.05); Absolute Lymphocytes 0.8 10^3/uL (1.2-3.4); Absolute Monocytes 0.8 10^3/uL (0.1-0.6); Absolute Neutrophils 5.6 10^3/uL (1.4-6.5); Hemoglobin 12.4 g/dL (12.0-16.0); Mean Corp Hgb Conc. 33.5 g/dL (33.0-37.0); Mean Corpuscular Hgb 30.5 pg (27.0-31.0); Mean Corpuscular Volume 90.9 fL (81.0-99.0); Mean Platelet Volume 11.1 fL (7.4-10.4); Nucleated Red Blood Cells % 0 %; Platelet Count 205 10^3/uL (130-400); Red Blood Cell Count 4.07 10^6/uL (4.20-5.40); White Blood Cell Count 7.8 10^3/uL (4.8-10.8)
[2024-03-14 07:11] LABS: ALT (SGPT) 14 U/L (0-35); AST (SGOT) 19 U/L (14-36); Albumin 3.8 g/dl (3.5-5.0); Alkaline Phosphatase 38 U/L (38-126); Blood Urea Nitrogen 49 mg/dl (7-17); Calcium 9.2 mg/dl (8.4-10.2); Carbon Dioxide 25 mmol/L (22-30); Chloride 99 mmol/L (98-107); Direct Bilirubin 0.1 mg/dl (0.0-0.4); Estimated Creatinine Clearance 30 ml/min; Glucose 101 mg/dl (70-99); Potassium 4.1 mmol/L (3.5-5.1); Sodium 138 mmol/L (135-145); Total Bilirubin 0.5 mg/dl (0.2-1.3); eGFR 37.56
[2024-03-14 07:21] LABS: Complement C3 116 mg/dl (88-165)
[2024-03-14 07:54] LABS: Erythrocyte Sed Rate 12 mm/hour (0-20)
--- NOTE | 2024-03-14 08:05 | W.PN.CD ---
Today's Communication / Plan
-
Add low-dose of ARB in the evening
Hopefully will get CMR today
Will review telemetry strip with Dr. Wood
Continue to monitor closely on telemetry.
Impression / Plan
-
Acute HFrEF; now to 30-35% global HK
-nonischemic--- unclear etiology. No PVCs on monitor. Given her history of vasculitis will pursue inpatient cardiac MRI.
-euvolemic at 168lb.
-CHF education, diet, monitoring (weight, I/O, renal function)
-Entresto/SGLT2i cost prohibitive continue bb start ARB, eventual MRA if bp and pt allows
NSVT/PVC's:
-improved with verapamil which unfortunately cannot tolerate due to CMY
-will see how she does with bb
-yesterday with episode of NSVT that may have been symptomatic ?near syncope
-may need to consider repeat ablation
-will update CMR as op is ammenable
-hx ablation 2019, Dr. Wood--will review with him
SMA stent:
-follows with vascular
-on ASA/plavix and statin
Valvular disease (mitral regurgitation/AR):
-Initially echo evaluated Mitral regurgitaiton to be moderate to severe which was a progression and moderate AR. However catheterization shows only mild aortic regurgitation and trace mitral regurgitation.
-CMR will evalaute
-Will continue to monitor over time.
Interstitial Lung disease:
-pulmonary consulted
-recently treated for bronchitis with steroids
Hypertension:
-stable
HX RA
Vasculitis
Subjective:
she is feeling better but yesterday after walking from bathroom felt LH and nurse came running in
Cath:
CONCLUSIONS
1:�Normal LVEDP (weight 168)
2:�Severe global hypokinesis with EF 31%
3. There is only trace MR by angiography
4. Mild aortic insufficiency
5. Mild aortic stenosis
6. No significant CAD
7. We will begin ARB
TTE 03/11/24:Moderately reduced left ventricular systolic function. LV ejection fraction is
30-35% by Alvarez's method of discs.
Global hypokinesis.
Stage II diastolic dysfunction suggestive of abnormal relaxation and increased
filling pressures.
Moderate/severe mitral regurgitation. Mild mitral stenosis.
Moderate aortic regurgitation. Mild aortic stenosis.
Normal right ventricular size and function.
Mild tricuspid regurgitation. Mildly elevated PASP. Estimated pulmonary artery
pressure of 43 mmHg assuming a right atrial pressure of 3 mmHg.
Compared to 09/08/23: LVEF has declined from 50% to 30-35%. MR has progressed
from mild to moderate/severe. AR has progressed from mild/moderate to moderate.
PASP has increased from 23 mmHg to 43 mmHg.
Physical Exam
Vital Signs/Labs
Vital Signs
Temp Pulse Resp BP Pulse Ox
97.7 F 85 16 108/60 98
03/14/24 03:40 03/14/24 03:40 03/14/24 03:40 03/14/24 03:40 03/14/24 03:40
03/13/24 03/14/24 03/15/24
06:59 06:59 06:59
Actual Weight 75.568 kg 75.92 kg
03/14/24 05:05
03/14/24 05:05
Magnesium 2.0 mg/dl (1.6-2.3) 03/12/24 05:12
Triglycerides 72 mg/dl (10-149) 03/11/24 05:00
LDL Cholesterol, Calc 35 mg/dl 03/11/24 05:00
VLDL Cholesterol, Calc 14 mg/dl (0-30) 03/11/24 05:00
HDL Cholesterol 72 mg/dl 03/11/24 05:00
Free T4 0.84 ng/dl (0.78-2.19) 03/11/24 05:00
03/10/24
18:26
Pqk-L-Iemthwqhpwd Pept 9510
LAB Results
03/11/24
12:11
Troponin I < 0.012
Physical Exam
Constitutional: No acute distress
Cardiovascular: Rhythm & rate is regular, Pedal edema is absent, JVD pressure is normal and Systolic murmur absent
Respiratory: Respiratory effort normal, Lungs clear to auscul., Wheeze Absent, Crackles Absent and Rhonchi Absent
Neuro/Psych: AO x 3
Data Reviewed
-
Date of Service: March 14, 2024
EKG: Other (tele with 29 beats of NSVT, pvcs)
[2024-03-14] MEDS: FOLVITE 3 MG PO (08:39)
[2024-03-14] MEDS: LOW STRENGTH ASPIRIN 81 MG PO (08:39)
[2024-03-14] MEDS: PLAQUENIL 200 MG PO ×2 (08:39→20:45)
[2024-03-14] MEDS: COREG 6.25 MG PO ×2 (08:39→22:03)
[2024-03-14] MEDS: PREVACID 30 MG PO (08:39)
[2024-03-14] MEDS: MUCINEX 600 MG PO ×2 (08:39→20:45)
[2024-03-14] MEDS: LASIX 40 MG PO (08:39)
[2024-03-14] MEDS: PLAVIX 75 MG PO (08:39)
[2024-03-14] MEDS: LEXAPRO 20 MG PO (08:39)
[2024-03-14 08:40] VITALS: BP 106/66
--- NOTE | 2024-03-14 08:58 | W.PN.HOSP.TC ---
Today's Communication/Plan
-
Diuretics. Cardiac MRI.
Assessment / Plan
Assessment / Plan
Physical exam:
General: No acute distress
HEENT: Normocephalic, Atraumatic and Moist Mucous Membranes
Respiratory: Clear to auscultation bilateral; Negative Wheezes, Rales or Rhonchi
Cardiac: Regular Rhythm and S1/S2
GI: Soft, Nontender and Nondistended
Musculoskeletal: No Clubbing, No Cyanosis and not much bilateral lower extremity edema
Neuro: Awake, Alert and Oriented
Psych: Calm
Cardiac cath:
1:�Normal LVEDP (weight 168)
2:�Severe global hypokinesis with EF 31%
3. There is only trace MR by angiography
4. Mild aortic insufficiency
5. Mild aortic stenosis
6. No significant CAD
7. We will begin ARB
�
A/P:
Acute HFrEF:
Non ischemic cardiomyopathy
On oral diuretics furosemide 40 mg p.o. daily
BNP upon admission 9510
Monitor strict I/O
Monitor daily weight
Monitor renal function and electrolytes
Reviewed latest echocardiogram on our system--> echocardiogram revealed EF 30 to 35% global hypokinesis, stage II diastolic dysfunction. Also moderate severe mitral regurgitation and mild mitral stenosis as well as moderate aortic regurgitation and
mild aortic stenosis.
Continue guideline-directed medical therapy for heart failure (GDMT)--> verapamil changed to carvedilol 6.25 mg twice a day for now. Rest of medications per cardiology.
Fluid restriction
Salt restriction
Heart failure education
Follow up clinical response
Cardiology consult appreciated
Status post cardiac cath as above
Discussed with cardiology on 03/13 and some suspicion for vasculitis involvement--> plan for cardiac MRI
Check sed rate, CRP, LFTs, urinalysis, C3 and C4 complement--> all inflammatory markers came back normal indicating less likely acute flare of autoimmune or inflammatory process but pending cardiac MRI.
Acute hypoxic respiratory insufficiency:
Likely related to above
There is also interstitial lung disease, but mild
No evidence of PE by CTA
Cardio and pulmonary consulted
Titrate oxygen
CKD:
Avoid nephrotoxic
Continue monitor renal function
History of P ANCA vasculitis:
She had renal biopsy in the past
On methotrexate and hydroxychloroquine
Follows up with rheumatology as outpatient
History of rheumatoid arthritis:
On methotrexate and hydroxychloroquine.
Follows up with rheumatology as outpatient
She has been weaned off steroids since 2020
History of SMA stenosis:
Status post SMA stent in the past
Hypertension:
Continue current meds
Hyperlipidemia:
Continue statin, rosuvastatin 10 mg p.o. nightly
GERD:
Continue PPI
Depression:
Continue escitalopram 20 mg p.o. daily
History of ischemic colitis with colon resection and colostomy revision and incarcerated umbilical hernia in 2018
History of melanoma incision in 2007
DVT prophylaxis:
Lovenox SQ
CODE STATUS:
Full code
Anticipated Discharge: Within 24 hours
Subjective/Interval History
-
Date of Service: March 14, 2024
Patient had episode of lightheadedness yesterday but none today. Less shortness of breath overall. No chest pain
Objective Data
-
Labs:
Laboratory Results
03/14/24
05:05
WBC 7.8
Hgb 12.4
Hct 37.0
Plt Count 205
Sodium 138
Potassium 4.1
Chloride 99
Carbon Dioxide 25
BUN 49 H
Creatinine 1.4 H
Glucose 101 H
Calcium 9.2
Total Bilirubin 0.5
AST 19
ALT 14
Alkaline Phosphatase 38
Vital Signs:
Vital Signs
Temp Pulse Resp BP Pulse Ox
97.4 F 98 12 106/66 99
03/14/24 08:40 03/14/24 08:40 03/14/24 08:40 03/14/24 08:40 03/14/24 08:40
I&O
03/13/24 03/14/24 03/15/24
06:59 06:59 06:59
Intake Total 360 / 360 720 / 960 240 / 240
Output Total 300 / 300
Balance 60 / 60 720 / 960 240 / 240
--- NOTE | 2024-03-14 10:06 | CM ---
CM following re:discharge planning.
Reviewed pt's chart, met with pt.
Pt reports she feels much better. Pt reports she lives at [facility] at [facility], independent with ambulation.
PT and OT evaluations noted - home health recommended. pt is aware, she stated she will not oppose to have home health services. A list of [facility]N vendors provided, pt preferred [facility]. [facility].
Pt stated her son or her best friend will transport at discharge.
IMM reviewed, placed on chart, pt has a copy.
Please fax discharge instructions to VN at [phone]
D/C plan: return back to her living arrangements at the [facility] at [facility]. Son and friend to transport.
--- NOTE | 2024-03-14 10:28 | VNURNOTE ---
[facility] liaison attempted to meet patient at bedside. She was out of room at MRI. Brochure left.
[2024-03-14 13:27] VITALS: BP 144/66
--- NOTE | 2024-03-14 13:57 | VNURNOTE ---
Home Health Liaison met with patient at bedside to discuss [facility] nurse/therapy, visits, schedule and homebound status. Patient is agreeable and understands that visits at home will be 2-3 x per week to assess and teach medical management. [facility]
brochure provided with contact information. Patient is aware that [facility] will contact them for start of care in 1-2 days after discharge from .
[facility] referral accepted in [facility].
--- NOTE | 2024-03-14 16:36 | W.PN.UPDATE ---
Update Note
Progress Note Update
Reviewed CMR no new infiltrative or inflamatory process.
Reviewed NSVT with Dr Wood, he agrees this is arising for site other than PVCs
recommends given 29 beats, sx and worsened ef, treat with Amiodarone. After lv allowed to recover will consider repeat ablation.
Start iv amiodarone, will transition to po amiodarone with likely dc in am.
D/w patient and Dr Burgos.
[2024-03-14] MEDS: CORDARONE 103 MG IV (17:59)
[2024-03-14] MEDS: CORDARONE 518 MG IV (18:18)
[2024-03-14] MEDS: LOVENOX 40 MG SC (18:29)
[2024-03-14 19:40] VITALS: BP 97/51
[2024-03-14] MEDS: CRESTOR 10 MG PO (22:05)
[2024-03-14 23:45] VITALS: BP 102/49
[2024-03-15] VITALS (7 sets, daily range): BP systolic 86–113; BP diastolic 42–63; PULSE 79; BMI 29.8
[2024-03-15] MEDS: DIOVAN 40 MG PO (00:11)
[2024-03-15 07:05] LABS: Blood Urea Nitrogen 48 mg/dl (7-17); Calcium 9.8 mg/dl (8.4-10.2); Carbon Dioxide 24 mmol/L (22-30); Chloride 100 mmol/L (98-107); Estimated Creatinine Clearance 25 ml/min; Glucose 106 mg/dl (70-99); Potassium 4.2 mmol/L (3.5-5.1); Sodium 138 mmol/L (135-145); eGFR 29.76
[2024-03-15] MEDS: LOW STRENGTH ASPIRIN 81 MG PO (08:13)
[2024-03-15] MEDS: FOLVITE 3 MG PO (08:13)
[2024-03-15] MEDS: MUCINEX 600 MG PO (08:14)
[2024-03-15] MEDS: COREG 6.25 MG PO (08:14)
[2024-03-15] MEDS: PLAQUENIL 200 MG PO (08:14)
[2024-03-15] MEDS: PREVACID 30 MG PO (08:14)
[2024-03-15] MEDS: LEXAPRO 20 MG PO (08:14)
[2024-03-15] MEDS: LASIX 40 MG PO (08:14)
[2024-03-15] MEDS: PLAVIX 75 MG PO (08:14)
--- NOTE | 2024-03-15 09:05 | W.PN.HOSP.TC ---
Addendum entered and electronically signed by Rolando Burgos MD 03/15/24 13:19:
LAVERN on CKD stage III
Addendum entered and electronically signed by Rolando Burgos MD 03/15/24 12:06:
Renal function slightly worse today. Creatinine bumped up to 1.7. On Lasix and ARB--> will await for cardio input
Original Note:
Today's Communication/Plan
-
Discharge planning once cleared by cardiology.
Assessment / Plan
Assessment / Plan
Physical exam:
General: No acute distress
HEENT: Normocephalic, Atraumatic and Moist Mucous Membranes
Respiratory: Clear to auscultation bilateral; Negative Wheezes, Rales or Rhonchi
Cardiac: Regular Rhythm and S1/S2
GI: Soft, Nontender and Nondistended
Musculoskeletal: No Clubbing, No Cyanosis and not much bilateral lower extremity edema
Neuro: Awake, Alert and Oriented
Psych: Calm
Cardiac cath:
1:�Normal LVEDP (weight 168)
2:�Severe global hypokinesis with EF 31%
3. There is only trace MR by angiography
4. Mild aortic insufficiency
5. Mild aortic stenosis
6. No significant CAD
7. We will begin ARB
�
Cardiac MRI:
1. DILATED CARDIOMYOPATHY which has markedly increased since 05/04/2020.
2. Mild amount of focal subendocardial scarring in the inferolateral wall of the left mid ventricle which appears unchanged.
3. Global systolic LV function: SEVERELY IMPAIRED.
4. Global systolic RV function: Normal.
5. Valvular disease: Mild aortic regurgitation.
6. Small right and minimal left pleural effusions.
A/P:
Acute HFrEF:
Non ischemic cardiomyopathy
On oral diuretics furosemide 40 mg p.o. daily
BNP upon admission 9510
Monitor strict I/O
Monitor daily weight
Monitor renal function and electrolytes
Reviewed latest echocardiogram on our system--> echocardiogram revealed EF 30 to 35% global hypokinesis, stage II diastolic dysfunction. Also moderate severe mitral regurgitation and mild mitral stenosis as well as moderate aortic regurgitation and
mild aortic stenosis.
Continue guideline-directed medical therapy for heart failure (GDMT)--> verapamil changed to carvedilol 6.25 mg twice a day for now. Rest of medications per cardiology.
Fluid restriction
Salt restriction
Heart failure education
Follow up clinical response
Cardiology consult appreciated
Status post cardiac cath as above
Discussed with cardiology on 03/13 and some suspicion for vasculitis involvement--> plan for cardiac MRI
Check sed rate, CRP, LFTs, urinalysis, C3 and C4 complement--> all inflammatory markers came back normal indicating less likely acute flare of autoimmune or inflammatory process and cardiac MRI no infiltrates and evidence of dilated cardiomyopathy.
Plan to discharge once cleared by cardiology.
Nonsustained V. tach:
Started on IV amiodarone drip yesterday on 03/14
Cardio discussed with EP
Consider ablation as outpatient
Acute hypoxic respiratory insufficiency:
Likely related to above
There is also interstitial lung disease, but mild
No evidence of PE by CTA
Cardio and pulmonary consulted
Titrate oxygen
CKD:
Avoid nephrotoxic
Continue monitor renal function
History of P ANCA vasculitis:
She had renal biopsy in the past
On methotrexate and hydroxychloroquine
Follows up with rheumatology as outpatient
History of rheumatoid arthritis:
On methotrexate and hydroxychloroquine.
Follows up with rheumatology as outpatient
She has been weaned off steroids since 2020
History of SMA stenosis:
Status post SMA stent in the past
Hypertension:
Continue current meds
Hyperlipidemia:
Continue statin, rosuvastatin 10 mg p.o. nightly
GERD:
Continue PPI
Depression:
Continue escitalopram 20 mg p.o. daily
History of ischemic colitis with colon resection and colostomy revision and incarcerated umbilical hernia in 2019
History of melanoma incision in 2007
DVT prophylaxis:
Lovenox SQ
CODE STATUS:
Full code
Anticipated Discharge: Today
Subjective/Interval History
-
Date of Service: March 15, 2024
Patient doing well, no chest pain or shortness of breath today.
Objective Data
-
Labs:
Laboratory Results
03/15/24
05:06
Sodium 138
Potassium 4.2
Chloride 100
Carbon Dioxide 24
BUN 48 H
Creatinine 1.7 H
Glucose 106 H
Calcium 9.8
Vital Signs:
Vital Signs
Temp Pulse Resp BP Pulse Ox
97.7 F 70 17 112/63 98
03/15/24 07:51 03/15/24 08:14 03/15/24 07:51 03/15/24 08:14 03/15/24 07:51
I&O
03/14/24 03/15/24 03/16/24
06:59 06:59 06:59
Intake Total 720 / 960 600 / 600
Balance 720 / 960 600 / 600
--- NOTE | 2024-03-15 12:17 | PN.CDI ---
CDI
- -
CDI:
Physician Documentation Request
Admit Date: 03/10/24 22:18
Dear Doctor Loretta,
Clinical Indicators: '
Patient admitted with acute HFrEF.
PMH includes CKD III
03/15 PN, 'Renal function slightly worse today. Creatinine bumped up to 1.7. On Lasix and ARB...'
Cr/GFR trend:
03/10/24 03/11/24 03/12/24
18:26 05:00 05:12
Creatinine 1.1 H 1.1 H 1.3 H
eGFR 50.17 50.17 41.06
03/13/24 03/14/24 03/15/24
05:02 05:05 05:06
Creatinine 1.4 H 1.4 H 1.7 H
eGFR 37.56 37.56 29.76
Please clarify which of the following accurately represents the patient's renal status:
LAVERN on CKD III
CKD III with rise in creatinine only
Other, please specify
Criteria for LAVERN*
1 Increase in serum creatinine by > or = to 0.3 mg/dL (> or = to 26.5 micromol/L) within 48 hours, OR
2 Increase in serum creatinine to > or = to 1.5 times baseline, which is known or presumed to have occurred within 7 days, OR
3 Urine volume < 0.5 nL/kg/hour for six hours
Stages of Chronic Kidney Disease*
Level Description GFR
G1 Normal or High >90
G2 Mildly decreased 60-89
G3a Mildly to moderately decreased 45-59
G3b Moderately to severely decreased 30-44
G4 Severely decreased 15-29
G5 Kidney failure <15
Use of terms such as suspected, likely, concern for, or probable (associated with a specific diagnosis that is being evaluated, monitored, or treated as if it exists) are acceptable and can be coded in the inpatient setting, when documented at the
time of discharge.
Thank you,
Tiffany Funez RN BSN
CDI Specialist
available via tiger text
Please use your independent medical judgment in providing your response.
*Source: Kidney Disease: Improving Global Outcomes (KDIGO) 2012
--- NOTE | 2024-03-15 13:10 | W.PN.CD ---
Addendum entered and electronically signed by Fred Ridley MD 03/15/24 16:15:
I saw and examined the patient.
The STEEL TIER's note was reviewed and I agree with the note.
Comment: Patient feeling well. Shortness of breath is improved. She has some dizziness if she stands up to go to the bathroom. No near syncope. No further VT on telemetry. On exam her lungs are clear to auscultation and she has a regular rate
and rhythm lower extremity edema is resolved. Overall, she has a recurrent cardiomyopathy with an EF of 30 to 35%, ventricular tachycardia, and orthostatic symptoms. Unfortunately I do not think she will be able to tolerate the addition of an ARB.
Will stop that. I will order compression socks for her. I think her symptoms are worsened by her laying in bed all day. I would love her to be up and out of bed to the chair more. If she is able to ambulate without further hypotension, would be
okay to discharge home later today. Will transition IV amnio to p.o. amnio. I think her slight bump in creatinine is due to valsartan and lower blood pressure. Will repeat her renal function next week as an outpatient. Will arrange close
follow-up. Plan discussed with nurse Rodriguez and Dr. Burgos.
Original Note:
Today's Communication / Plan
-
switch Amiodarone to PO and stop Valsartan.
Impression / Plan
-
HFrEF - acute.
-now to 30-35%, global HK.
-nonischemic, unclear etiology.
-inpatient cardiac MRI unchanged from previous.
-euvolemic at 168lb.
-CHF education, diet, monitoring (weight, I/O, renal function)
-Entresto/SGLT2i cost prohibitive, continue Coreg, Valsartan 40mg QHS added last night. plan eventual MRA if bp and pt allows.
-had symptomatic hypotension this am, so will stop Valsartan.
NSVT/PVC's - improved on IV Amiodarone, will switch to PO and monitor.
-continue Coreg.
-may need to consider repeat ablation as an outpatient.
-hx ablation 2019, Dr. Wood.
SMA stent - stable.
-follows with vascular
-on ASA/Plavix and statin.
Valvular disease (mitral regurgitation/AR):
-Initially echo evaluated mitral regurgitation to be moderate to severe which was a progression and moderate AR. However catheterization shows only mild aortic regurgitation and trace mitral regurgitation.
-CMR evaluated MR as moderate.
-Will continue to monitor over time.
Interstitial Lung disease:
-pulmonary consulted
-recently treated for bronchitis with steroids
Hypertension - hypotensive this am, stop Valsartan.
HX RA
Vasculitis
Cath:
CONCLUSIONS
1:�Normal LVEDP (weight 168)
2:�Severe global hypokinesis with EF 31%
3. There is only trace MR by angiography
4. Mild aortic insufficiency
5. Mild aortic stenosis
6. No significant CAD
7. We will begin ARB
TTE 03/11/24:Moderately reduced left ventricular systolic function. LV ejection fraction is
30-35% by Alvarez's method of discs.
Global hypokinesis.
Stage II diastolic dysfunction suggestive of abnormal relaxation and increased
filling pressures.
Moderate/severe mitral regurgitation. Mild mitral stenosis.
Moderate aortic regurgitation. Mild aortic stenosis.
Normal right ventricular size and function.
Mild tricuspid regurgitation. Mildly elevated PASP. Estimated pulmonary artery
pressure of 43 mmHg assuming a right atrial pressure of 3 mmHg.
Compared to 09/08/23: LVEF has declined from 50% to 30-35%. MR has progressed
from mild to moderate/severe. AR has progressed from mild/moderate to moderate.
PASP has increased from 23 mmHg to 43 mmHg.
Physical Exam
Vital Signs/Labs
Vital Signs
Temp Pulse Resp BP Pulse Ox
97.9 F 74 17 86/42 95
03/15/24 11:00 03/15/24 11:00 03/15/24 11:00 03/15/24 11:00 03/15/24 11:00
03/14/24 03/15/24 03/16/24
06:59 06:59 06:59
Actual Weight 167 lb 6 oz 168 lb 6 oz
03/14/24 05:05
03/15/24 05:06
Magnesium 2.0 mg/dl (1.6-2.3) 03/12/24 05:12
Triglycerides 72 mg/dl (10-149) 03/11/24 05:00
LDL Cholesterol, Calc 35 mg/dl 03/11/24 05:00
VLDL Cholesterol, Calc 14 mg/dl (0-30) 03/11/24 05:00
HDL Cholesterol 72 mg/dl 03/11/24 05:00
Free T4 0.84 ng/dl (0.78-2.19) 03/11/24 05:00
03/10/24
18:26
Lto-[id number]-[id number] Pept 9510
Physical Exam
Constitutional: No acute distress
EENT: Anicteric and Moist mucous membranes
Cardiovascular: Rhythm & rate is regular
Respiratory: Respiratory effort normal
GI: Soft, Non tender and Normal bowel sounds
Neuro/Psych: AO x 3
Other: Skin (warm, dry )
Data Reviewed
-
Date of Service: March 15, 2024
Medical Decision Making: Reviewed Test Results
EKG: Tracing Personally Visualized and interpreted
Labs: Labs Reviewed by me
Old Records: Reviewed
--- NOTE | 2024-03-15 15:34 | W.DCSUMMARY ---
Discharge Summary
Discharge Data
Date of Admission: 03/10/24
Date of Discharge: 03/15/24
-
Pending Results: No
Hospital Course
Patient 83 years old female with history of peripheral vascular disease, rheumatoid arthritis, P ANCA vasculitis, ischemic colitis, hemolytic anemia, pericarditis in the past, peripheral eosinophilia, came into the hospital with shortness of breath
and chest pain and found to be in heart failure exacerbation. Patient was treated with IV diuretics. Pulmonary and cardiology were consulted. She underwent cardiac catheterization and she had severe global hypokinesis with a EF of 31% and normal
left ventricular end-diastolic pressures. Also there was only trace MR, mild aortic insufficiency, mild aortic stenosis, and no significant CAD. Her medications were adjusted by cardiology. She also had autoimmune and inflammatory markers checked
and they were normal. She also underwent cardiac MRI and it did not reveal any infiltrative process but dilated cardiomyopathy. In terms of her heart failure medications Entresto was cost prohibitive, she was recommended to continue Coreg, she was
started on valsartan but she did not tolerate with some hypotension so this was discontinued. Patient also had nonsustained V. tach and multiple PVCs and cardiology discussed with EP and she was placed on IV amiodarone drip for 24 hours. There
were no further nonsustained V. tach. Patient had mild asymptomatic hypotension likely related to ARB and decreased mobility in the hospital thereby cardiology recommended Tubigrip's, increase mobility, and discontinued ARB. Cardiology reach out
to me today and cleared her for discharge.
Discharge duration: 35 minutes
Discharge Plan
-
Patient Disposition: Home (Routine Discharge)
Discharge Diagnosis/Procedures: Cardiac cath
Diet: Low Cholesterol and 2 Gram Sodium
Driving Restrictions: No driving for 24 hours
Blood Work: Please PCP to order CBC, BMP within 1 week
Instructions: *CBC Heart Failure Instructions
Stand Alone Forms: DC Instructions- Cath/EP Lab
Referrals:
Rosa Mcghee MD [Active] - (keep plans for f/u PFT and appt with Pulm)
Debbie Wood MD [Active] - 03/27/24 4:20 pm
()
Evangelina Ortiz MD [Family Provider] - in less than 1 week
Rigo Fortune MD [Active] - 05/01/24 2:00 pm
Prescriptions:
New
furosemide 40 mg Tablet
40 mg PO DAILY 30 Days Qty: 30 0RF
carvedilol 6.25 mg Tablet
6.25 mg PO BID 30 Days Qty: 60 0RF
amiodarone 200 mg Tablet
400 mg PO BID 30 Days Qty: 120 0RF
Continued
hydroxychloroquine 200 MG tablet
200 mg PO BID
rosuvastatin 10 MG tablet
10 mg PO HS
clopidogrel 75 MG tablet
75 mg PO DAILY
biotin 5 MG capsule
5 mg PO DAILY
esomeprazole magnesium 40 MG capsule,delayed release(DR/EC)
40 mg PO DAILY
cholecalciferol (vitamin D3) 2,000 UNITS tablet
2,000 units PO DAILY
aspirin 81 MG tablet,delayed release (DR/EC)
81 mg PO DAILY
albuterol sulfate 90 mcg/actuation HFA aerosol inhaler
2 puff inhalation Q6H PRN (Reason: shortness of breath or wheezing) Qty: 8.5 0RF
methotrexate sodium 2.5 mg Tablet
7.5 mg PO SA
escitalopram oxalate 20 mg Tablet
20 mg PO DAILY
folic acid 1 mg tablet
3 mg PO DAILY
Discontinued
verapamil 180 mg Tablet Extended Release
180 mg PO DAILY
Discharge Orders:
Discharge Patient (As Directed); Ordered 03/15/24
Ordered By: Rolando Burgos
Discharge Date and Time
Discharge Date/Time: 03/15/24 19:30
Print Language: EGYPTIAN
[2024-03-15] MEDS: LOVENOX 30 MG SC (16:46)
--- NOTE | 2024-03-18 10:32 | W.HF.CON ---
Heart Failure
- LV Function
Left ventricular function study result: LV Ejection fraction </= 35%
Ejection Fraction Percentage: 30-35
- ARNI
Patient already on ARNI: No
Heart Failure ARNI Contraindication: Hypotension, Patient Refusal
- ACEI/ARB
Patient already on ACEI/ARB: No
Heart Failure ACEI/ARB Contraindication: Hypotension
- Beta Sachin
Patient already on Evidence Based Beta Sachin: Yes
- Mineralocorticord Receptor Antagonist
Patient already on MRA: No
Heart Failure MRA Contraindication: Hypotension
- SGLT-2 Inhibitor
Patient already on SGLT-2 Inhibitor: No
Heart Failure SGLT-2 Inhibitor Contraindication: Patient Refusal
- NYHA CHF Classification
NYHA CHF Classification Level: Class III - Symptoms w/ min exertion, interferes w/ nml daily activity
- ACC/AHA Stage
ACC/AHA Stage: Stage C: Symptomatic Heart Failure
== END 2024-03-15 19:30 | disposition home health service (06) | DRG 287 ==
LOC: 3 WEST ACU 22:18
PROVIDERS: Internal Medicine Cardiovascular Disease; Nurse Practitioner; Nurse Practitioner Adult Health; ADMITTING PHYSICIAN Hospitalist; ATTENDING PHYSICIAN Hospitalist; EMERGENCY PHYSICIAN Emergency Medicine; FAMILY PHYSICIAN Internal Medicine; OTHER PHYSICIAN Internal Medicine Critical Care Medicine; OTHER PHYSICIAN Student in an Organized Health Care Education/Training Program
PROC: 4A023N7 Measurement of Cardiac Sampling and Pressure, Left Heart, Percutaneous Approach (ICD-10-PCS; 2024-03-12)
PROC: B211YZZ Fluoroscopy of Multiple Coronary Arteries using Other Contrast (ICD-10-PCS; 2024-03-12)
PROC: B215YZZ Fluoroscopy of Left Heart using Other Contrast (ICD-10-PCS; 2024-03-12)
DX: I50.21 Acute systolic (congestive) heart failure (principal); I42.0 Dilated cardiomyopathy; I47.20 Ventricular tachycardia, unspecified; J84.9 Interstitial pulmonary disease, unspecified; N17.9 Acute kidney failure, unspecified; I25.10 Atherosclerotic heart disease of native coronary artery without angina pectoris; I12.9 Hypertensive chronic kidney disease with stage 1 through stage 4 chronic kidney disease, or unspecified chronic kidney disease; N18.30 Chronic kidney disease, stage 3 unspecified; G43.909 Migraine, unspecified, not intractable, without status migrainosus; E78.00 Pure hypercholesterolemia, unspecified; K21.9 Gastro-esophageal reflux disease without esophagitis; I49.3 Ventricular premature depolarization; G47.31 Primary central sleep apnea; I08.0 Rheumatic disorders of both mitral and aortic valves; M06.9 Rheumatoid arthritis, unspecified; R06.89 Other abnormalities of breathing; R09.02 Hypoxemia; I73.9 Peripheral vascular disease, unspecified; I77.82 Antineutrophilic cytoplasmic antibody [ANCA] vasculitis; E03.9 Hypothyroidism, unspecified; I95.9 Hypotension, unspecified; F32.A Depression, unspecified; D63.1 Anemia in chronic kidney disease; Z95.828 Presence of other vascular implants and grafts; Z96.643 Presence of artificial hip joint, bilateral; Z90.49 Acquired absence of other specified parts of digestive tract; Z88.3 Allergy status to other anti-infective agents; Z88.2 Allergy status to sulfonamides; Z79.82 Long term (current) use of aspirin; Z79.02 Long term (current) use of antithrombotics/antiplatelets; Z79.899 Other long term (current) drug therapy
CPT/HCPCS: 36415; 71275; 75561; 80048; 80053; 80061; 81003; 82248; 83735; 83880; 84439; 84443; 84484; 85025; 85027; 85652; 86140; 86160; 93005; 93306; 93458; 94667; 96374; 97116; 97163; 97166; 97530; 97535; 99285; A9585; C1894; Q9967

== ENCOUNTER → 2024-04-02 11:41 | Outpatient (REF) | payer MEDICARE, BC, SELFPAY ==
[2024-04-02 13:12] LABS: Hematocrit 36.1 % (37.0-47.0); Hemoglobin 11.8 g/dL (12.0-16.0); Mean Corp Hgb Conc. 32.7 g/dL (33.0-37.0); Mean Corpuscular Hgb 30.1 pg (27.0-31.0); Mean Corpuscular Volume 92.1 fL (81.0-99.0); Mean Platelet Volume 11.3 fL (7.4-10.4); Platelet Count 175 10^3/uL (130-400); Red Blood Cell Count 3.92 10^6/uL (4.20-5.40); Red Cell Dist. Width 15.5 % (11.5-14.5); White Blood Cell Count 6.7 10^3/uL (4.8-10.8)
[2024-04-02 13:26] LABS: ALT (SGPT) 18 U/L (0-35); AST (SGOT) 27 U/L (14-36); Albumin 4.1 g/dl (3.5-5.0); Alkaline Phosphatase 41 U/L (38-126); Blood Urea Nitrogen 26 mg/dl (7-17); Calcium 9.8 mg/dl (8.4-10.2); Carbon Dioxide 25 mmol/L (22-30); Chloride 104 mmol/L (98-107); Glucose 90 mg/dl (70-99); Potassium 4.8 mmol/L (3.5-5.1); Sodium 141 mmol/L (135-145); Total Bilirubin 0.5 mg/dl (0.2-1.3); Total Protein 6.3 g/dl (6.3-8.2)
== END ==
LOC: OLAB 11:41
PROVIDERS: ATTENDING PHYSICIAN Internal Medicine; REFERRING PHYSICIAN Internal Medicine Cardiovascular Disease
DX: I13.0 Hypertensive heart and chronic kidney disease with heart failure and stage 1 through stage 4 chronic kidney disease, or unspecified chronic kidney disease (principal); D58.9 Hereditary hemolytic anemia, unspecified
CPT/HCPCS: 36415; 80053; 85027

== ENCOUNTER → 2024-04-08 13:17 | Outpatient (REF) | payer MEDICARE, BC, SELFPAY | LOC: DHSLP 13:17 | PROVIDERS: ATTENDING PHYSICIAN Internal Medicine Critical Care Medicine; FAMILY PHYSICIAN Internal Medicine | DX: G47.33 Obstructive sleep apnea (adult) (pediatric) (principal) | CPT/HCPCS: 95811 ==

== ENCOUNTER → 2024-05-23 10:05 | Outpatient (REF) | payer MEDICARE, BC, SELFPAY | LOC: RAD 10:05 | PROVIDERS: ATTENDING PHYSICIAN Surgery Vascular Surgery; FAMILY PHYSICIAN Internal Medicine | DX: I77.1 Stricture of artery (principal) | CPT/HCPCS: 93975 ==

== ENCOUNTER → 2024-06-21 10:46 | Outpatient (REF) | payer MEDICARE, BC, SELFPAY ==
[2024-06-21 11:33] LABS: % Basophils 1.4 % (0-2); % Eosinophils 0.5 % (0-6); % Immature Granulocytes 1.1 % (0-0.5); % Lymphocytes 10.3 % (20.5-51.1); % Monocytes 8.3 % (1.7-9.3); % Neutrophils 78.4 % (42.2-75.2); Absolute Basophils 0.1 10^3/uL (0-0.2); Absolute Immature Granulocytes 0.1 10^3/uL (0-0.05); Absolute Lymphocytes 0.7 10^3/uL (1.2-3.4); Absolute Monocytes 0.5 10^3/uL (0.1-0.6); Hematocrit 37.7 % (37.0-47.0); Hemoglobin 12.1 g/dL (12.0-16.0); Mean Corp Hgb Conc. 32.1 g/dL (33.0-37.0); Mean Corpuscular Hgb 30.2 pg (27.0-31.0); Mean Platelet Volume 10.2 fL (7.4-10.4); Nucleated Red Blood Cells % 0 %; Platelet Count 178 10^3/uL (130-400); Red Blood Cell Count 4.01 10^6/uL (4.20-5.40); Red Cell Dist. Width 17.3 % (11.5-14.5); White Blood Cell Count 6.4 10^3/uL (4.8-10.8)
[2024-06-21 11:59] LABS: ALT (SGPT) 15 U/L (0-35); AST (SGOT) 25 U/L (14-36); Albumin 4.5 g/dl (3.5-5.0); Alkaline Phosphatase 54 U/L (38-126); Blood Urea Nitrogen 31 mg/dl (7-17); Carbon Dioxide 25 mmol/L (22-30); Chloride 103 mmol/L (98-107); Glucose 86 mg/dl (70-99); HDL Cholesterol 62 mg/dl; LDL Cholesterol, Calculated 45 mg/dl; Phosphorus 3.3 mg/dl (2.5-4.5); Potassium 5.4 mmol/L (3.5-5.1); Sodium 139 mmol/L (135-145); Total Bilirubin 0.8 mg/dl (0.2-1.3); Total Cholesterol 124 mg/dl (50-199); Total Protein 6.8 g/dl (6.3-8.2); Triglyceride 88 mg/dl (10-149); Very Low Density Lipoprotein 17 mg/dl (0-30); eGFR 27.61
== END ==
LOC: REG 10:46
PROVIDERS: ATTENDING PHYSICIAN Internal Medicine Cardiovascular Disease; FAMILY PHYSICIAN Internal Medicine
DX: I42.0 Dilated cardiomyopathy (principal); I10 Essential (primary) hypertension; E03.9 Hypothyroidism, unspecified; D64.9 Anemia, unspecified; I51.89 Other ill-defined heart diseases; E78.00 Pure hypercholesterolemia, unspecified; N17.9 Acute kidney failure, unspecified
CPT/HCPCS: 36415; 80053; 80061; 84100; 84443; 85025

== ENCOUNTER → 2024-07-18 13:17 | Outpatient (REF) | payer MEDICARE, BC, SELFPAY ==
[2024-07-18 14:35] LABS: Urine Albumin 1+ (Neg - Trace); Urine Bilirubin Negative (Negative); Urine Character Clear (Clear); Urine Color Yellow; Urine Glucose Negative (Negative); Urine Ketone Negative (Negative); Urine Leukocyte 3+ (Negative); Urine Nitrite Positive (Negative); Urine Occult Blood 1+ (Negative); Urine Specific Gravity 1.015 (<1.030); Urine Urobilinogen Negative (Neg - 1+)
[2024-07-18 14:46] LABS: Urine Squamous Cell >30 /LPF (Few)
[2024-07-18 14:47] LABS: Urine Protein 15 mg/dl
[2024-07-18 14:49] LABS: Protein/creatinine Ratio 0.2; Urine Bacteria Many (Negative); Urine White Cell 70-80 /HPF (0-5)
[2024-07-21 01:02] LABS: Myeloperoxidase Antibody 13 AU/mL (0-19); Serine Protease-3, IgG 0 AU/mL (0-19)
== END ==
LOC: REG 13:17
PROVIDERS: ATTENDING PHYSICIAN Internal Medicine; FAMILY PHYSICIAN Internal Medicine; REFERRING PHYSICIAN Internal Medicine Cardiovascular Disease
DX: I77.6 Arteritis, unspecified (principal); R76.8 Other specified abnormal immunological findings in serum
CPT/HCPCS: 36415; 81003; 81015; 82570; 83516; 84156

== ENCOUNTER → 2024-08-06 12:44 | Outpatient (REF) | payer MEDICARE, BC, SELFPAY | LOC: RCS 12:44 | PROVIDERS: ATTENDING PHYSICIAN Internal Medicine Cardiovascular Disease; FAMILY PHYSICIAN Internal Medicine | DX: I42.0 Dilated cardiomyopathy (principal) | CPT/HCPCS: 93306 ==

== ENCOUNTER 2024-09-20 10:35 | Day surgery (SDC) | payer MEDICARE, BC, SELFPAY ==
[2024-09-20] VITALS (12 sets, daily range): BP systolic 118–146; BP diastolic 65–92; BMI 31.6
--- NOTE | 2024-09-20 08:45 | W.ICD.CONTRA ---
Post ICD/OVERWEAVER-D
-
History of IL?: No
LV Function
Left ventricular function study result?: Ejection Fraction </= 35%
ACEI/ARB/ARNI
Patient already on ACEI/ARB/ARNI: No
ACEI/ARB/ARNI Contraindication: Acute Renal Failure
Beta-Sachin
Patient already on Beta Sachin: Yes
--- NOTE | 2024-09-20 11:10 | HP.FOC2 ---
Focused History & Physical
Chief Complaint
HPI:
PCP: Evangelina Ortiz MD
CDY: Clifford Ridley MD
Chief Complaint: Progressive SOB/BARBA, dizziness, persistently low EF
HPI / Indication for Planned Procedure:
84 y/o, progressive SOB, BARBA, dizziness. GDMT limited by side effects of dizziness/lightheadedness with dose increases. Intolerant of SGLT2 inhibitors due to UTI, and cost prohibitive. VIOLA/ARB contraindicated d/t [id number]. Persistently low EF, 30-35%
on echo 08/06/24. Also with history of NSVT with prior PVC/VT ablation in 2020. Presents today for Bi-V ICD implant.
She has an obvious staged bruise above the left eye, states she was getting to the bathroom quickly, became a little dizzy and then tripped. She did not go to ER for treatment and states she feels fine.
Relevant Past Medical History: Hypertension and Other (NICM, chronic systolic HFrEF, NSVT/PVC, EQP0b-3, PAD, HLD, RA, Vasculitis, GERD, Perforated diverticulitis (2018))
Relevant Social History: Negative (non smoker) and ETOH (social, rare)
Relevant Family History: Positive for (Father- CVA)
Relevant Past Surgical History: Positive for (B/L THR (2000), R SMA stent (2019), PVC/VT ablation (2019), colostomy (2017), Lap asst JUDY/appy/reversal end colostomy/hernia repair (2019))
Medication
See Medication form for detailed medications: Yes
Medication List (including Herbals & OTC):
hydroxychloroquine 200 mg tablet 200 mg PO BID
rosuvastatin 10 mg tablet 10 mg PO HS
clopidogrel 75 mg tablet 75 mg PO DAILY
biotin 5 mg capsule 5 mg PO DAILY
esomeprazole magnesium 40 mg capsule,delayed release 40 mg PO DAILY
aspirin 81 mg tablet,delayed release 81 mg PO DAILY
cholecalciferol (vitamin D3) 50 mcg (2,000 unit) tablet 2,000 units PO DAILY
albuterol sulfate 90 mcg/actuation aerosol inhaler 2 puff inhalation Q6H PRN shortness of breath or wheezing
escitalopram oxalate 20 mg tablet 20 mg PO DAILY
methotrexate sodium 2.5 mg tablet 7.5 mg PO SA
folic acid 1 mg tablet 3 mg PO DAILY
amiodarone 200 mg tablet 200 mg PO DAILY
carvedilol 3.125 mg tablet 3.125 mg PO BID
furosemide 40 mg tablet 40 mg PO EVERY OTHER DAY
levothyroxine sodium 50 mcg tablet 50 mcg PO DAILY
verapamil 180 mg tablet 180mg PO DAILY
Medications Reviewed: Yes
Allergies and Reactions
Patient has Allergies: Yes
Noted Allergies and Reactions:
Allergy/AdvReac Type Severity Reaction Status Date / Time
dapsone Allergy 'small Verified 03/10/24 17:01
blisters'
pantoprazole sodium Allergy 'MAKES ME Verified 03/10/24 17:01
[From Protonix] SICK'
Sulfa (Sulfonamide Allergy Hives Verified 03/10/24 17:01
Antibiotics)
sulfamethoxazole Allergy Hives Verified 03/10/24 17:01
[From Bactrim DS]
trimethoprim Allergy Hives Verified 03/10/24 17:01
[From Bactrim DS]
Pertinent Physical Exam
All Other Systems: Negative
Head/Neck: Normal
Lungs: Normal
Heart: Normal
Abdomen: Normal
Extremities: Normal
Neurological: Normal
Other: Left forehead above eyebrow with staged yellow/green bruise, no ht/oozing
Diagnosis / Assessment
NICM
Chronic systolic HFrEF 30-35%
PVC/NSVT, s/p ablation (2019)
s/p Fall, 09/06/24
Plan / Procedure
Bi-V ICD implant today
cefazolin pre/post op
CXR post op
incision check 1 week at [facility] office
resume clopidogrel post op when stable
Anesthesia/Sedation to be done by Anesthesia Provider: Yes
--- NOTE | 2024-09-20 16:21 | CM ---
Chart reviewed. Patient is independent of ADLS, lives [place] at [facility], [address], elevator access, ambulates with a SPC. Plan is for the patient to return home. CM to follow
--- NOTE | 2024-09-20 16:45 | ITS.CL.ICD ---
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
Implantable Cardioverter Defibrillator
Procedure Report:
Date of Procedure: September 20, 2024.
Procedures: Biventricular ICD implant.
Indication: Primary prevention ICD. NYHA heart failure class: III for more than 9 months despite maximally tolerated guideline directed medical therapy.. LVEF 30-35%. QRS duration 122 ms with a LBBB pattern. Known non-sustained VT. Nonischemic
cardiomyopathy. No history of OH. Life expectancy is greater than 1 year.
Performing physician: Rigo Fortune MD, [facility].
Implants:
Pulse Generator: Medtronic; Model# [id number]; Serial# [id number].
Atrial Lead: Medtronic: Model# [id number]; Serial# [id number].
Right Ventricular Lead: Medtronic; Model# [id number]; Serial# [id number].
Left Bundle Lead: Medtronic; Model# 3830-69cm; Serial# [id number].
Technique: A time out was performed. The procedure site was identified. The patient was anesthetized by the anesthesia service. Preoperative cefazolin was administered. The patient was prepped and draped in the usual fashion. Local anesthetic was
applied to the left prepectoral subcutaneous tissue. A 3 inch incision was made along the left deltopectoral groove. Dissection was carried to the fascia. The left cephalic vein was easily isolated and proximal and distal control with 2-0 Vicryl
suture. Using a micropuncture needle to access the cephalic vein under direct visualization a wire could not advance centrally but always went down the arm. The left axillary vein was accessed with two separate percutaneous micro- punctures without
difficulty and a retained guidewire technique was used. The leads were introduced with hemostatic peel away introducer sheaths. The RV ICD lead was placed at the right ventricular apical septum. The ventricular lead was secured to the pectoralis
muscle and fascia with two 0-silk sutures. The atrial lead was then placed in the right atrial appendage. The atrial lead was secured to the pectoralis muscle and fascia with two 0-silk sutures. The coronary sinus could not be accessed with the aid
of the Attain Command Sure Valve system despite using a MP and extended hook catheters. I chose to proceed to place a left bundle lead as bail out for resynchronization therapy. The left bundle lead (3830) was placed using utilizing the [employer]
His delivery catheter ([id number]) that was advanced to the left bundle area as confirmed by fluoroscopy in the UZBEK and BENOIT projections. The lead tip was advanced. PVC morphology was reviewed. When a satisfactory location was identified (W pattern
observed) the lead was screwed into position with serial turns. Septal engagement was confirmed with gentle torque applied to the guide sheath. After each series of turns (2-3) unipolar sensed morphology and impedance, and paced morphology of V1 was
analyzed. The lead was further advanced until satisfactory morphology and electrical characteristics were confirmed. The left bundle lead was placed in the third location evaluated. The long guiding sheath was cut and removed from the RV without
change in lead position, impedance, sensing, or capture. The left bundle lead was secured to the pectoralis muscle and fascia with two 0-silk sutures. 8 volt pacing did not capture the diaphragm from any lead. A subcutaneous pocket was created with
Bovie cautery. Hemostasis was excellent. The leads were appropriately attached to the device. The pocket was irrigated with antibiotic solution. The device and leads were placed in the pocket. The incision was closed in three layers with absorbable
suture. Steri-strips and a a silver impregnated dressing were placed. Estimated blood loss was 5 ml. There were no complications. Fluoroscopy time: 14.1 minutes and DAP [id number]. The device was then interrogated after skin closure. No IV contrast
was administered.
System Analysis:
RA lead: P: 2.8 mV; Threshold: 0.75 V @ 0.4 ms; Impedance: 530 ohms.
RV ICD lead: R: 5.8 mV; Threshold: 0.5 V @ 0.4 ms; Impedance: 490 ohms.
FIELD PROJECT MANAGER/Left Bundle lead (3830) (tip to RV ICD coil): R: 8mV; Threshold: 1 V @ 0.4 ms; Impedance: 640 ohms.
Left bundle paced QRS characteristics: V1 has QR morphology and measures 124 ms in duration, LVAT (stim to peak V5/V6) is 104 ms, and R peak V1 to R peak V6 is 65 ms.
Final Programming: Tachy: VT/VF:188 bpm; Ignacio: DDDR 60-120 bpm.
Conclusion: Uncomplicated [ ] CD implant. The ICD system is MRI safe/conditional.
Recommendation: Routine post ICD care.
cc: Perla Ridley MD and Evangelina Ortiz MD
--- NOTE | 2024-09-20 18:11 | PTCARENOTE ---
received pt post icd. left chest wall is cdi. pressure dressing intact. pt offers no complaints at this time. pt is paced on the monitor, hr in the 80s, vss. pt resting in bed comfortably. pt educated on plan of care and pt verbalized understanding.
call fernando within reach.
[2024-09-20] MEDS: ANCEF 5 IV (19:41)
[2024-09-20] MEDS: TYLENOL 650 MG PO (19:41)
[2024-09-20] MEDS: COREG 3.125 MG PO (19:42)
[2024-09-20] MEDS: PLAQUENIL 200 MG PO (19:42)
--- NOTE | 2024-09-20 20:30 | PTCARENOTE ---
Addendum entered by Angelica Aden RN 09/21/24 05:52:
Pt sent for f/u CXR via wheelchair. Results back, see reports.
Original Note:
Assumed care on pt at 1900,s/p ICD. Left chest wall area free of swelling or bruising. Pressure dressing CDI. Pt c/o some discomfort, tylenol PRN given. V-paced on the monitor, hr in the 80s, BP stable, O2 sat 96-98% RA. Call fernando within reach.
Educated on plan of care and pt verbalized understanding.
[2024-09-20] MEDS: CRESTOR 10 MG PO (22:11)
[2024-09-21] MEDS: TYLENOL 650 MG PO (03:25)
[2024-09-21] MEDS: ANCEF 5 IV (03:27)
[2024-09-21 03:28] VITALS: BP 133/71
[2024-09-21 04:26] VITALS: BMI 31.7
[2024-09-21 04:32] LABS: Hematocrit 32.1 % (37.0-47.0); Hemoglobin 10.4 g/dL (12.0-16.0); Mean Corp Hgb Conc. 32.4 g/dL (33.0-37.0); Mean Corpuscular Hgb 30.9 pg (27.0-31.0); Mean Corpuscular Volume 95.3 fL (81.0-99.0); Mean Platelet Volume 10.8 fL (7.4-10.4); Platelet Count 157 10^3/uL (130-400); Red Blood Cell Count 3.37 10^6/uL (4.20-5.40); Red Cell Dist. Width 15.6 % (11.5-14.5); White Blood Cell Count 7.9 10^3/uL (4.8-10.8)
[2024-09-21 04:54] LABS: Blood Urea Nitrogen 22 mg/dl (7-17); Carbon Dioxide 22 mmol/L (22-30); Chloride 108 mmol/L (98-107); Estimated Creatinine Clearance 27 ml/min; Glucose 98 mg/dl (70-99); Magnesium 2.1 mg/dl (1.6-2.3); Potassium 4.7 mmol/L (3.5-5.1); Sodium 142 mmol/L (135-145)
--- NOTE | 2024-09-21 05:57 | PTCARENOTE ---
Dsg left upper chest remains CDI, no swelling or bruising around it. Paced rhythm on the monitor, HR 80's. No c/o chest pain or SOB. Call fernando within reach, POC ongoing
[2024-09-21] MEDS: SYNTHROID 50 MCG PO (06:14)
[2024-09-21 07:22] VITALS: BP 134/66
--- NOTE | 2024-09-21 08:07 | W.PN.UPDATE ---
Addendum entered and electronically signed by Rigo Fortune MD 09/21/24 13:38:
I saw and examined the patient.
The MAIN ENT[employer] COOK [employer] CASHIER's note was reviewed and I agree with the note.
Comment: EKG/CXR/site good.
Original Note:
Update Note
Progress Note Update
Status post Medtronic primary prevention ICD yesterday, 09/20/2024, by Dr. Fortune.
EKG stable.
CXR stable.
Left pectoral site stable without hematoma or pocket fullness.
Activity restrictions reviewed with the patient at the bedside.
--- NOTE | 2024-09-21 08:57 | W.DS.TRANS ---
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
-
Discharge Instructions:
Discharge Diagnosis/Procedures BiV ICD implant
Diet Low Cholesterol,2 Gram Sodium
Activity No strenuous activity
Additional Activity See attached instructions
Driving Restrictions No driving for 1 week
Bathing Restrictions OK to Shower
Instructions:
Stand-Alone Forms: DC Inst - Implanted Device
Changes to Home Medications: No
Discharge Medications:
DC Medications w/original date entered in [employer]
hydroxychloroquine 200 mg tablet 200 mg PO BID Rheumatoid arthritis 07/15/19
rosuvastatin 10 mg tablet 10 mg PO HS High cholesterol 12/31/19
clopidogrel 75 mg tablet 75 mg PO DAILY Heart disease/condition 01/03/20
esomeprazole magnesium 40 mg capsule,delayed release 40 mg PO DAILY Gastrointestinal issue 04/30/20
aspirin 81 mg tablet,delayed release 81 mg PO DAILY Blood clot prevention/tx 08/19/20
cholecalciferol (vitamin D3) 50 mcg (2,000 unit) tablet 2,000 units PO DAILY Supplement 08/19/20
albuterol sulfate 90 mcg/actuation aerosol inhaler 2 puff inhalation Q6H PRN shortness of breath or wheezing #8.5 grams 02/12/24
escitalopram oxalate 20 mg tablet 20 mg PO DAILY Depression 03/10/24
methotrexate sodium 2.5 mg tablet 7.5 mg PO SA rheumatoid arthritis 03/10/24
folic acid 1 mg tablet 3 mg PO DAILY Supplement 03/11/24
amiodarone 200 mg tablet 200 mg PO DAILY 09/11/24
carvedilol 3.125 mg tablet 3.125 mg PO BID 09/11/24
furosemide 40 mg tablet 40 mg PO Q OTHER DAY 09/11/24
cranberry extract 425 mg capsule 425 mg PO DAILY 09/20/24
levothyroxine 50 mcg tablet 50 mcg PO DAILY 09/20/24
Home Medication Changes
Pending Results: No
[2024-09-21] MEDS: ASPIR LOW (ENTERIC COATED) 81 MG PO (09:31)
[2024-09-21] MEDS: PLAQUENIL 200 MG PO (09:31)
[2024-09-21] MEDS: PLAVIX 75 MG PO (09:31)
[2024-09-21] MEDS: PACERONE 200 MG PO (09:31)
[2024-09-21] MEDS: LEXAPRO 20 MG PO (09:31)
[2024-09-21] MEDS: COREG 3.125 MG PO (09:31)
--- NOTE | 2024-09-21 10:29 | PTCARENOTE ---
d/c instructions read to pt and pt verbalized understanding. pt left w/ belongings from room and d/c instructions. icd site is [facility]. pt left w/ staff member via wheelchair.
== END 2024-09-21 10:33 | disposition home or self-care (01) ==
LOC: CATH 10:35
PROVIDERS: Nurse Practitioner Adult Health; ATTENDING PHYSICIAN Internal Medicine Cardiovascular Disease; FAMILY PHYSICIAN Internal Medicine; OTHER PHYSICIAN Internal Medicine Cardiovascular Disease
DX: I47.20 Ventricular tachycardia, unspecified (principal); I44.7 Left bundle-branch block, unspecified; I42.8 Other cardiomyopathies; N18.32 Chronic kidney disease, stage 3b; R42 Dizziness and giddiness; Z79.899 Other long term (current) drug therapy; Z79.02 Long term (current) use of antithrombotics/antiplatelets; Z79.82 Long term (current) use of aspirin; Z79.890 Hormone replacement therapy; M06.9 Rheumatoid arthritis, unspecified; F32.A Depression, unspecified; I13.0 Hypertensive heart and chronic kidney disease with heart failure and stage 1 through stage 4 chronic kidney disease, or unspecified chronic kidney disease; I50.22 Chronic systolic (congestive) heart failure; I73.9 Peripheral vascular disease, unspecified; Z95.820 Peripheral vascular angioplasty status with implants and grafts; E78.5 Hyperlipidemia, unspecified; K21.9 Gastro-esophageal reflux disease without esophagitis; E78.00 Pure hypercholesterolemia, unspecified; Z82.3 Family history of stroke
CPT/HCPCS: 33249; 71045; 80048; 83735; 85027; 93005; C1769; C1777; C1882; C1887; C1892; C1898

== ENCOUNTER 2024-10-06 13:40 | Inpatient (IN) | payer MEDICARE, BC, SELFPAY ==
[2024-10-06] VITALS (10 sets, daily range): BP systolic 105–138; BP diastolic 52–104; BMI 31.6; BMI 31.0
--- NOTE | 2024-10-06 10:59 | ED.GENMED ---
History of Present Illness
General
Chief Complaint: Breathing Problem
Source: patient
Exam Limitations: none
Time Seen by Provider: 10/06/24 10:23
Nursing documentation reviewed up to this point in time: agreed with
History of Present Illness
History of Present Illness:
84-year-old female with past medical history as noted significant for CHF who presents to the emergency department for evaluation of shortness of breath. Patient reports symptoms have been ongoing for the past week but were worse this morning. She
reports that for the past week she has had shortness of breath with activity, this morning woke up and was having resting dyspnea while laying in bed. Came to the emergency room for assessment. She says symptoms have improved slightly since
arrival. She has had mild nonproductive cough. She has not noticed any significant swelling in the legs. She does report some tightness in the chest but denies any chest pain. She denies fevers or chills. She says she has had similar symptoms
from heart failure in the past. She is follows with Dr. Ridley for cardiology; she did recently have pacemaker/AICD implanted by Dr. Fortune. Patient's only other complaint on review of systems is that she has been dealing with a mild headache
for the past week; she said she had a mechanical fall with head strike on Mother's Day but never sought evaluation despite being on Plavix; she denies any other injuries from the fall.
Past History
Past History
ED Past Medical History: GERD, HTN, Hypothyroidism, Other (Diverticulitis, Vasculitis, degenerative osteoarthritis, kidney stones, ureteral anomaly, ) and Other (Vertigo, renal insufficiency)
ED Past Surgical History: Bowel resection (for perforaction with colostomy), Cholecystectomy, Orthopedic (Bilateral hip replacement) and Tonsilectomy
Social History
Tobacco: Non-smoker
Alcohol: Occasional
Drug: None
Personal:
Living: assisted living
Employment: Retired
Family History
Family History: Other
Review of Systems
Review of Systems
All Other Systems: ROS reviewed and negative except as documented in HPI and ROS
Constitutional: Denies fever or chills
Respiratory: Reports cough and trouble breathing
Cardiac: Reports chest pain (Tightness); Denies palpitations
ABD/GI: Denies abdominal pain
: Denies flank pain
Musculoskeletal: Denies neck pain or back pain
Neurological: Reports headache
Phy Exam
Physical Exam
Physical Exam:
General: Awake, alert, oriented x3 with a GCS of 15; no acute distress
Head: Normocephalic, atraumatic
Eyes: Conjunctiva normal, pupils equal round and reactive to light bilaterally
Throat: Airway intact, handling secretions
Neck: Trachea midline, no JVD noted
Lungs: Clear to auscultation bilaterally, bibasilar rales
Heart: Regular rate and rhythm, no murmurs, gallops, or rubs
Abd: Soft, non distended, nontender
Neuro: No gross deficits
Extremities: Atraumatic, no significant edema in extremities, equal pulses in all extremities
Scores
Heart Failure Risk
Heart Failure Risk Score: Yes
History of Stroke or TIA: No
History of intubation for respiratory distress: No
Heart rate on ED arrival >/= 110: No
SaO2 <90% on arrival on room air: No
HR >/=110 during 3min walk test (or too ill to perform test): Yes
ECG has acute ischemic changes: No
Urea >/=12mmol/L (BUN 33.6mg/dL): No
Serum CO2>/=35mmol/L: No
Troponin I or T elevated to IL Level (0.4mg/dL): No
NT-proBNP >/=5,000ng/L (5,000pg/ml): Yes
HF Risk Score: 3
Admission Status: HIGH RISK 15.9% Consider SNF treatment or admission to hospital
Heart Score for Chest Pain Patients
STEMI patient?: Not applicable
Withdrawal Assessment of Alcohol
Withdrawal Assessment Completed?: Not applicable
Course
Orders/Labs/Results
Orders:
Orders
10/06/24 08:56
Electrocardiogram (*1) Urgent
Reason for Study: Abdominal Pain
10/06/24 08:57
EKG- Treatment ONCE
10/06/24 10:37
CR Chest - 2 Views Urgent
Comment:
Reason For Exam: SOB
10/06/24 10:38
CT Cervical Spine W/o Iv Contr Urgent
Comment:
Reason For Exam: headache, fall on plavix
CT Head W/o Iv Contrast Urgent
Comment:
Reason For Exam: headache, fall on plavix
Troponin I Urgent
10/06/24 10:39
Interrogate Pacemaker- Treatment ONCE
Comment: Medtronic
10/06/24 11:07
CMP [Comprehensive Metabolic Panel] Urgent
Complete Blood Count/With Diff Urgent
Lipase Urgent
NT-proBNP Urgent
Troponin I Urgent
10/06/24 12:40
Furosemide [Lasix] 40 mg IV NOW STA
Abnormal Lab Results
10/06/24
11:07
RBC 3.47 L 10^6/uL
(4.20-5.40)
Hgb 10.8 L g/dL
(12.0-16.0)
Hct 32.8 L %
(37.0-47.0)
MCH 31.1 H pg
(27.0-31.0)
MCHC 32.9 L g/dL
(33.0-37.0)
RDW 15.8 H %
(11.5-14.5)
Abs Immat Gran (auto) 0.1 H 10^3/uL
(0-0.05)
Absolute Neuts (auto) 8.2 H 10^3/uL
(1.4-6.5)
Absolute Lymphs (auto) 0.5 L 10^3/uL
(1.2-3.4)
Immature Gran % 0.6 H %
(0-0.5)
Neutrophils % 86.8 H %
(42.2-75.2)
Lymphocytes % 5.3 L %
(20.5-51.1)
Chloride 112 H mmol/L
(98-107)
BUN 30 H mg/dl
(7-17)
Creatinine 1.6 H mg/dL
(0.6-1.0)
10/06/24 11:07
10/06/24 11:07
Vital Signs
Initial and Last Documented VS:
Initial Vital Signs
Temp Pulse Resp BP Pulse Ox
36.7 C 88 18 120/67 97
10/06/24 08:51 10/06/24 08:51 10/06/24 08:51 10/06/24 08:51 10/06/24 08:51
Last Documented Vital Signs
Temp Pulse Resp BP Pulse Ox
36.7 C 80 23 124/63 93
10/06/24 08:51 10/06/24 11:00 10/06/24 11:00 10/06/24 10:00 10/06/24 11:00
MDM/Problems Addressed
Differential Diagnosis Includes:
CHF, pneumonia, anemia, angina/ACS, dysrhythmia
MDM/Problems Addressed:
84-year-old female with history as noted presents for evaluation of progressive shortness of breath over the past week. Vitals and exam as above. Plan to place an IV check labs including a CBC and a CMP, troponin, proBNP. Will check EKG and a
chest x-ray. She did report a fall last week has been dealing with headache�she is on Plavix we will check CT of the head and cervical spine. Will reassess after the above.
Labs reviewed: CBC shows marginal anemia, CMP shows stable CKD with creatinine 1.6. Patient's proBNP is markedly elevated at 9500. Chest x-ray shows pulmonary edema and pleural effusions consistent with CHF. Regarding her fall and headache�CT
head and cervical spine are negative. Her pulse ox and respiratory rate are normal at rest but on ambulatory trial to the bathroom patient severely tachypneic and winded with only a few steps. Will plan to admit for treatment of acute CHF
exacerbation. Treat with IV Lasix. Discussed with hospitalist.
Chronic conditions affecting care:
CHF
*Radiology
Radiology exam reviewed: preliminary read by ED provider and radiology read reviewed
*Pulse Oximetry
Patient hypoxic: no
*EKG
Interpreted by ED Provider?: Yes
Heart Rate: 86
Rate: normal
Rhythm: ventricular paced (Atrial sensed)
*Critical Care Note
Total Time (30-74mins, 75-104mins- exclusive of procedures): Not Applicable
Data Reviewed
Review of Other/Old Records Reveals: Labs and Records
Source: patient and records
Patient Management
Discussion with other providers: Hospitalist (Discussed with hospitalist)
Escalation/DeEscalation of care consider admission/obs:
Admission indicated
ED Attending Note
-
Portions of this chart may have been created with voice recognition software.� Occasional wrong word or��sound alike� substitutions may have occurred due to the inherent limitations of voice recognition software.
Discharge Plan
Departure
Patient Disposition: Admit
Date of Disposition: 10/06/24
Time of Disposition: 12:45
Admit to doctor: Afshan
Presentation/result/management discussed w/ accepting MD/DO: Hospitalist
Discharge Problem:
CHF exacerbation
Prescriptions:
No Action
hydroxychloroquine 200 MG tablet
200 mg PO BID
rosuvastatin 10 MG tablet
10 mg PO HS
clopidogrel 75 MG tablet
75 mg PO DAILY
esomeprazole magnesium 40 MG capsule,delayed release(DR/EC)
40 mg PO DAILY
cholecalciferol (vitamin D3) 2,000 UNITS tablet
2,000 units PO DAILY
aspirin 81 MG tablet,delayed release (DR/EC)
81 mg PO DAILY
albuterol sulfate 90 mcg/actuation HFA aerosol inhaler
2 puff inhalation Q6H PRN (Reason: shortness of breath or wheezing) Qty: 8.5 0RF
methotrexate sodium 2.5 mg Tablet
7.5 mg PO SA
escitalopram oxalate 20 mg Tablet
20 mg PO DAILY
folic acid 1 mg tablet
3 mg PO DAILY
carvedilol 3.125 mg Tablet
3.125 mg PO BID
furosemide 40 mg tablet
40 mg PO Q OTHER DAY
amiodarone 200 mg tablet
200 mg PO DAILY
cranberry extract 425 mg Capsule
425 mg PO DAILY
levothyroxine 50 mcg Tablet
50 mcg PO DAILY
Referrals:
Evangelina Ortiz MD [Family Provider] -
Interventions
Interventions:
*Risk Screen - Suicide Last Done: 10/06/24 08:51
*Neglect/Abuse Screening Last Done: 10/06/24 08:51
Discharge Date and Time
Print Language: UZBEK
[2024-10-06 11:17] LABS: % Basophils 0.9 % (0-2); % Immature Granulocytes 0.6 % (0-0.5); % Lymphocytes 5.3 % (20.5-51.1); % Monocytes 6.4 % (1.7-9.3); % Neutrophils 86.8 % (42.2-75.2); Absolute Basophils 0.1 10^3/uL (0-0.2); Absolute Immature Granulocytes 0.1 10^3/uL (0-0.05); Absolute Lymphocytes 0.5 10^3/uL (1.2-3.4); Absolute Monocytes 0.6 10^3/uL (0.1-0.6); Absolute Neutrophils 8.2 10^3/uL (1.4-6.5); Hematocrit 32.8 % (37.0-47.0); Hemoglobin 10.8 g/dL (12.0-16.0); Mean Corp Hgb Conc. 32.9 g/dL (33.0-37.0); Mean Corpuscular Hgb 31.1 pg (27.0-31.0); Mean Corpuscular Volume 94.5 fL (81.0-99.0); Mean Platelet Volume 10.4 fL (7.4-10.4); Nucleated Red Blood Cells % 0 %; Platelet Count 172 10^3/uL (130-400); Red Blood Cell Count 3.47 10^6/uL (4.20-5.40); Red Cell Dist. Width 15.8 % (11.5-14.5); White Blood Cell Count 9.5 10^3/uL (4.8-10.8)
[2024-10-06 11:36] LABS: ALT (SGPT) 11 U/L (0-35); AST (SGOT) 20 U/L (14-36); Alkaline Phosphatase 55 U/L (38-126); Blood Urea Nitrogen 30 mg/dl (7-17); Calcium 9.4 mg/dl (8.4-10.2); Carbon Dioxide 24 mmol/L (22-30); Chloride 112 mmol/L (98-107); Estimated Creatinine Clearance 27 ml/min; Glucose 95 mg/dl (70-99); Lipase 48 U/L (23-300); Potassium 4.9 mmol/L (3.5-5.1); Sodium 142 mmol/L (135-145); Total Protein 6.6 g/dl (6.3-8.2)
[2024-10-06 11:41] LABS: NT-proBNP 9520 pg/ml; Troponin I 0.019 ng/ml
--- NOTE | 2024-10-06 13:35 | HPS.HSE ---
Family Physician
-
Family Physician: Evangelina Ortiz
Chief Complaint
-
shortness of breath
History of Present Illness
84-year-old female past medical history of nonischemic cardiomyopathy, chronic HFrEF, nonsustained V. tach with ICD, hypertension, CKD 3B/4, peripheral arterial disease with right superior mesenteric artery stenting in 2019, hyperlipidemia,
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 She has mild nonproductive cough. No
swelling in the legs. She does have some tightness in the chest described as a band around her chest all the time but which she gets when she has heart failure but denies chest pain. No fevers or chills. She has had mild headache for the past
week. She had mechanical fall with head strike, but never sought evaluation despite being on Plavix. Denies any other injuries from the fall. Has been compliant with low-salt diet.
He was on Lasix 40 mg daily but she was getting lightheadedness so this was decreased to every other day 3 months ago. No other changes to cardiac meds.
Drinks alcohol occasionally. Denies smoking.
Medical History
Past Medical History
Past Medical History: Reports Other (nonischemic cardiomyopathy, chronic HFrEF, nonsustained V. tach with ICD, hypertension, CKD 3B/4, peripheral arterial disease with right superior mesenteric artery stenting in 2019, hyperlipidemia, rheumatoid
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
Past Surgical History: Reports Other (Bowel resection (for perforaction with colostomy), Cholecystectomy, Orthopedic (Bilateral hip replacement) and Tonsilectomy)
Social History
Tobacco: Non-smoker
Alcohol: None
Drug: None
Family History
Family History: Not pertinent
Allergies / Home Medications
Allergies reflects when Allergies were last updated in [employer].
Home Medications with original date entered in [employer]
Allergy/Medication List:
Allergies
Allergy/AdvReac Type Severity Reaction Status Date / Time
adhesive tape Allergy Rash Verified 09/20/24 10:54
dapsone Allergy 'small Verified 09/20/24 10:54
blisters'
pantoprazole sodium Allergy 'MAKES ME Verified 09/20/24 10:54
[From Protonix] SICK'
Sulfa (Sulfonamide Allergy Hives Verified 09/20/24 10:54
Antibiotics)
sulfamethoxazole Allergy Hives Verified 09/20/24 10:54
[From Bactrim DS]
trimethoprim Allergy Hives Verified 09/20/24 10:54
[From Bactrim DS]
Home Medications
hydroxychloroquine 200 mg tablet 200 mg PO BID Rheumatoid arthritis 07/15/19
rosuvastatin 10 mg tablet 10 mg PO HS High cholesterol 12/31/19
clopidogrel 75 mg tablet 75 mg PO DAILY Heart disease/condition 01/03/20
esomeprazole magnesium 40 mg capsule,delayed release 40 mg PO DAILY Gastrointestinal issue 04/30/20
aspirin 81 mg tablet,delayed release 81 mg PO DAILY Blood clot prevention/tx 08/19/20
cholecalciferol (vitamin D3) 50 mcg (2,000 unit) tablet 2,000 units PO DAILY Supplement 08/19/20
albuterol sulfate 90 mcg/actuation aerosol inhaler 2 puff inhalation Q6H PRN shortness of breath or wheezing #8.5 grams 02/12/24
escitalopram oxalate 20 mg tablet 20 mg PO DAILY Depression 03/10/24
methotrexate sodium 2.5 mg tablet 7.5 mg PO SA rheumatoid arthritis 03/10/24
folic acid 1 mg tablet 3 mg PO DAILY Supplement 03/11/24
amiodarone 200 mg tablet 200 mg PO DAILY 09/11/24
carvedilol 3.125 mg tablet 3.125 mg PO BID 09/11/24
furosemide 40 mg tablet 40 mg PO Q OTHER DAY 09/11/24
cranberry extract 425 mg capsule 425 mg PO DAILY 09/20/24
levothyroxine 50 mcg tablet 50 mcg PO DAILY 09/20/24
Review of Systems
-
History Source: Patient
A 12 point ROS was completed and negative except as noted: Yes
Constitutional: Reports No Symptoms
EENT: Reports No Symptoms
Respiratory: Reports See HPI
Cardiac: Reports See HPI
Abdomen/GI: Reports No Symptoms
: Reports No Symptoms
Musculoskeletal: Reports No Symptoms
Skin: Reports No Symptoms
Neurological: Reports No Symptoms
Endocrine: Reports No Symptoms
Hematologic/Lymphatic: Reports No Symptoms
Psych: Reports No Symptoms
Physical Exam
Vital Signs
Vital Signs
Temp Pulse Resp BP Pulse Ox
98.0 F 80 23 124/63 93
10/06/24 08:51 10/06/24 11:00 10/06/24 11:00 10/06/24 10:00 10/06/24 11:00
Physical Exam
General: Well Developed, Well Nourished and No Apparent Distress
HEENT: NormoCephalic, Moist mucous membranes and Atraumatic
Respiratory: Clear
Cardiac: S1/S2 and Regular Rhythm; No Murmur or Rub
GI: Soft, Non Tender, Non Distended and Normal Bowel Sounds; No Organomegaly
Rectal: Deferred by Provider
Musculoskeletal: No Clubbing, No Cyanosis and No Edema
Skin: No Rash
Neuro: Nonfocal/grossly intact
Laboratory Results
-
10/06/24 11:07
10/06/24 11:07
Laboratory Results
Total Bilirubin 1.0 mg/dl (0.2-1.3) 10/06/24 11:07
AST 20 U/L (14-36) 10/06/24 11:07
ALT 11 U/L (0-35) 10/06/24 11:07
Alkaline Phosphatase 55 U/L (38-126) 10/06/24 11:07
Troponin I 0.019 ng/ml 10/06/24 11:07
Lipase 48 U/L (23-300) 10/06/24 11:07
Data Reviewed
-
Lab Data: Labs Reviewed by me
Old Records: Reviewed
Impression/Plan
-
IMPRESSION:
PLAN:
#Acute on chronic HFrEF exacerbation
#Nonischemic cardiomyopathy
-Troponin 0.019, EKG shows paced rhythm
-Trend troponins
- Cardiac BNP of 9500
- Chest x-ray shows moderate pulmonary edema, small bilateral pleural effusions
- Check I's and O's, daily weights
- Lasix 40 IV daily
-Continue Coreg
- Cardiology consulted
Recent fall with head injury
- CT head and cervical spine shows no acute abnormality
Nonsustained ventricular tachycardia status post ICD
- Continue amiodarone
Essential hypertension
CKD 3B/4
- Renal function at baseline
Peripheral arterial disease status post right superior mesenteric artery stenting in 2019
- Continue aspirin, Plavix
Hyperlipidemia
- Continue statin
Rheumatoid arthritis
- Continue hydroxychloroquine, methotrexate
GERD
- Continue esomeprazole
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
Chronic anemia
Anxiety/depression
- Continue Lexapro
Full code
DVT prophylaxis�heparin
Cardiac diet
[2024-10-06] MEDS: LASIX 40 MG IV (13:57)
--- NOTE | 2024-10-06 14:55 | CON.CAR ---
Addendum entered and electronically signed by Debbie Wood MD 10/07/24 09:16:
Patient was seen and evaluated personally. I agree with the note, documentation and plan of care as discussed with the resident and note below.
Briefly, 84-year-old woman with nonischemic cardiomyopathy with LVEF of 30% status post BiV ICD on 09/20/2024 has severe CKD, PAD, hyperlipidemia, rheumatoid arthritis, autoimmune P ANCA positive vasculitis who presented with shortness of breath and
pressure on her chest with difficulty breathing. She was noted to be in heart failure. Her examination shows JVD and vascular distention along with peripheral edema bilaterally. Patient chest x-ray shows mild pulmonary edema. She was given IV
Lasix in the ER and has already improved significantly since arrival and at the time of my examination in the ER.
Patient's BiV ICD is pacing with LV 30 to 40 ms earlier than the ICD. The the LV lead is left bundle branch pacing via the ventricular septum and is not engaging the left bundle but is causing septal contraction. The ICD pacing is pacing in the
refractory. At this time we will continue with IV diuresis.
Plan for reprogramming of the BiV ICD tomorrow.
Original Note:
Consultation
Consultation Request
Date/Time Consultation Requested: 10/06/2024/13:45
Date/Time Consultation Performed: 10/06/2024/14:00
Requesting Provider: Rigo Chavez Jr, MD
Performing Provider: Debbie Wood MD
Reason for Consultation: Acute on chronic HFpEF
Medical History
-
Chief Complaint: SOB, chest tightness
History of Present Illness:
84-year-old female with history of HFrEF EF 30 to 35%, nonischemic cardiomyopathy, left bundle branch block status post biventricular ICD implantation 09/20/2024, CKD stage IIIb, PAD status post superior mesenteric artery stenting 2019,
hyperlipidemia, rheumatoid arthritis, GERD, diverticulitis with perforation, P ANCA vasculitis, who presents with SOB and chest pressure 'band around my chest'. She had a recent fall a week ago after she lost her balance where she struck her head
with no LOC and sought no medical treatment at the time. She has felt generally unwell in the past week. While she does have some baseline dyspnea on exertion, it significantly worsened this morning with chest pressure and nausea.
She manages her own medications and denies missing any meds. Denies recent illness, chest pain, LE edema, pleurisy, or palpitations. She takes her daily weights and reports dry weight of 177lbs.
Past Medical History
Past Medical History: CHF (HFpEF), GERD, Hypercholesterolemia and Other (CKD3b, Rheumatoid arthritis. LBBB, PAD, )
Past Surgical History: Bowel Resection (colostomy and reversal), Cardiac (Biventricular ICD placement 09/20/2024, ) and Other (superior mesenteric artery stenting 2019)
Social History
Tobacco: Non-Smoker
Alcohol: None
Drug: None
Living: Other (independent long-term)
Family History
Family History: Reviewed & Not Pertinent
Allergies / Home Medications
Allergy/AdvReac Type Severity Reaction Status Date / Time
adhesive tape Allergy Rash Verified 09/20/24 10:54
dapsone Allergy 'small Verified 09/20/24 10:54
blisters'
pantoprazole sodium Allergy 'MAKES ME Verified 09/20/24 10:54
[From Protonix] SICK'
Sulfa (Sulfonamide Allergy Hives Verified 09/20/24 10:54
Antibiotics)
sulfamethoxazole Allergy Hives Verified 09/20/24 10:54
[From Bactrim DS]
trimethoprim Allergy Hives Verified 09/20/24 10:54
[From Bactrim DS]
�Medication �Instructions �Recorded �Confirmed �Type
hydroxychloroquine 200 mg tablet 200 mg PO BID Rheumatoid arthritis 07/15/19 10/06/24 History
rosuvastatin 10 mg tablet 10 mg PO HS High cholesterol 12/31/19 10/06/24 History
clopidogrel 75 mg tablet 75 mg PO DAILY Heart 01/03/20 10/06/24 History
disease/condition
esomeprazole magnesium 40 mg 40 mg PO DAILY Gastrointestinal 04/30/20 10/06/24 History
capsule,delayed release issue
aspirin 81 mg tablet,delayed 81 mg PO DAILY Blood clot 08/19/20 10/06/24 History
release prevention/tx
cholecalciferol (vitamin D3) 50 2,000 units PO DAILY Supplement 08/19/20 10/06/24 History
mcg (2,000 unit) tablet
escitalopram oxalate 20 mg tablet 20 mg PO DAILY Depression 03/10/24 10/06/24 History
methotrexate sodium 2.5 mg tablet 7.5 mg PO SA rheumatoid arthritis 03/10/24 10/06/24 History
folic acid 1 mg tablet 3 mg PO DAILY Supplement 03/11/24 10/06/24 History
amiodarone 200 mg tablet 200 mg PO DAILY 09/11/24 10/06/24 History
carvedilol 3.125 mg tablet 3.125 mg PO BID 09/11/24 10/06/24 History
furosemide 40 mg tablet 40 mg PO Q48H 09/11/24 10/06/24 History
cranberry extract 425 mg capsule 425 mg PO DAILY 09/20/24 10/06/24 History
levothyroxine 50 mcg tablet 50 mcg PO DAILY 09/20/24 10/06/24 History
Review of Systems
-
History Source: Patient
Constitutional: Other (denies significant weight gain or loss)
Respiratory: Trouble Breathing
Cardiac: Other (chest pressure present. No lightheadedness)
Abdomen/GI: Other (no nausea or vomiting)
Musculoskeletal: Other (no edema)
Physical Exam
Vital Signs
Temp Pulse Resp BP Pulse Ox
98.0 F 83 23 123/68 94
10/06/24 08:51 10/06/24 13:57 10/06/24 11:00 10/06/24 13:57 10/06/24 12:00
Lab Results
10/06/24 11:07
10/06/24 11:07
Troponin I 0.019 ng/ml 10/06/24 11:07
Yjh-Z-Nupuwjjcafk Pept 9520 pg/ml 10/06/24 11:07
Physical Exam
General: Well Developed, Well Nourished and Respiratory Distress
HEENT: Moist Mucous Membranes
Respiratory: Crackles (mild bibasilar crackles) and Other (mildly labored breathing); Negative Wheezes or Rhonchi
Cardiac: S1/S2 and Regular Rhythm; Negative Murmur, Rub, Peripheral Edema, Calf Tenderness or JVD
GI: Soft, Non Tender, Non Distended and Normal Bowel Sounds
Musculoskeletal: No Clubbing, No Cyanosis and No Edema
Skin: Warm and Dry
Neuro: Awake, Alert and Oriented
Psych: Calm
Impression / Plan
-
84-year-old female with history of HFrEF EF 30 to 35%, nonischemic cardiomyopathy, left bundle branch block status post biventricular ICD implantation 09/20/2024, CKD stage IIIb, PAD status post superior mesenteric artery stenting 2019,
hyperlipidemia, rheumatoid arthritis, GERD, diverticulitis with perforation, P ANCA vasculitis who presents with acute on chronic HFpEF.
Acute on chronic HFrEF:
Non-ischemic cardiomyopathy - Cath 02/2024 with no significant CAD
EF 30-35% on echo 07/2024
-PO lasix 40mg Q-other day at home. Received 40mg IV lasix in ED. Continue daily IV lasix 40mg
-Reports dry weight of 177lbs (80 kg). Dry weight likely lower. Record daily weights, strict IandO while diuresing
-Telemetry
-Follow kidney function closely
-GDMT limited due to adverse effects and cost. Continue Carvedilol
PAD:
S/P superior mesenteric artery stenting 2019.
-Continue asp, plavix, rosuvastatin
Essential hypertension:
- Stable on carvedilol
History of NSVT:
LBBB:
-Status post [employer] biventricular ICD implantation 09/20/2024
-Device interrogated, with no new episodes
-hx ablation 2019
Cath 03/12/2025:
1:�Normal LVEDP (weight 168)
2:�Severe global hypokinesis with EF 31%
3. There is only trace MR by angiography
4. Mild aortic insufficiency
5. Mild aortic stenosis
6. No significant CAD
Echo 08/06/2024:
Mildly dilated LV with moderately reduced systolic function.
LVEF is 30-35% by visual estimation. Global diffuse hypokinesis.
Normal RV size and function.
Moderate to severe mitral regurgitation. Mild mitral stenosis.
Mild aortic stenosis.
Moderate aortic regurgitation.
Estimated pulmonary artery pressure of 38 mmHg assuming a right atrial pressure
of 3 mmHg.
Compared to prior from March 11, 2024, no significant change.
[2024-10-06 17:44] LABS: Troponin I 0.023 ng/ml
[2024-10-06] MEDS: HEPARIN 5000 UNITS SC (20:10)
[2024-10-06 23:15] LABS: Troponin I 0.022 ng/ml
[2024-10-07] VITALS (7 sets, daily range): BP systolic 92–117; BP diastolic 50–62; PULSE 71; O2SAT 96; BMI 30.9
[2024-10-07 06:51] LABS: % Basophils 1.2 % (0-2); % Eosinophils 0.4 % (0-6); % Immature Granulocytes 0.7 % (0-0.5); % Lymphocytes 7.6 % (20.5-51.1); % Monocytes 5.7 % (1.7-9.3); % Neutrophils 84.4 % (42.2-75.2); Absolute Basophils 0.1 10^3/uL (0-0.2); Absolute Immature Granulocytes 0.1 10^3/uL (0-0.05); Absolute Lymphocytes 0.5 10^3/uL (1.2-3.4); Absolute Monocytes 0.4 10^3/uL (0.1-0.6); Absolute Neutrophils 5.7 10^3/uL (1.4-6.5); Hematocrit 31.4 % (37.0-47.0); Hemoglobin 10.4 g/dL (12.0-16.0); Mean Corp Hgb Conc. 33.1 g/dL (33.0-37.0); Mean Corpuscular Hgb 30.6 pg (27.0-31.0); Mean Corpuscular Volume 92.4 fL (81.0-99.0); Mean Platelet Volume 10.7 fL (7.4-10.4); Nucleated Red Blood Cells % 0 %; Platelet Count 158 10^3/uL (130-400); Red Cell Dist. Width 15.7 % (11.5-14.5); White Blood Cell Count 6.7 10^3/uL (4.8-10.8)
[2024-10-07 07:09] LABS: Blood Urea Nitrogen 33 mg/dl (7-17); Calcium 8.9 mg/dl (8.4-10.2); Carbon Dioxide 22 mmol/L (22-30); Chloride 110 mmol/L (98-107); Estimated Creatinine Clearance 28 ml/min; Glucose 101 mg/dl (70-99); Potassium 4.4 mmol/L (3.5-5.1); Sodium 139 mmol/L (135-145); eGFR 34.36
--- NOTE | 2024-10-07 09:12 | W.PN.HOSP.TC ---
Today's Communication/Plan
-
Continue IV Lasix
Possible discharge tomorrow with continued improvement
Assessment / Plan
Assessment / Plan
HPI: 84-year-old female past medical history of nonischemic cardiomyopathy, chronic HFrEF, nonsustained V. tach with ICD, hypertension, CKD 3B/4, peripheral arterial disease with right superior mesenteric artery stenting in 2019, hyperlipidemia,
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 She has mild nonproductive cough. No
swelling in the legs. She does have some tightness in the chest described as a band around her chest all the time but which she gets when she has heart failure but denies chest pain. No fevers or chills. She has had mild headache for the past
week. She had mechanical fall with head strike, but never sought evaluation despite being on Plavix. Denies any other injuries from the fall. Has been compliant with low-salt diet.
He was on Lasix 40 mg daily but she was getting lightheadedness so this was decreased to every other day 3 months ago. No other changes to cardiac meds.
#Acute on chronic HFrEF exacerbation
#Nonischemic cardiomyopathy
Cardiac BNP of 9500
Chest x-ray shows moderate pulmonary edema, small bilateral pleural effusions
Cardiology following, continue Lasix 40 mg IV daily, Coreg
Trend creatinine, trend daily weights
Recent fall with head injury
- CT head and cervical spine shows no acute abnormality
- PT/OT
Nonsustained ventricular tachycardia status post ICD
- Continue amiodarone, coreg
Essential hypertension
CKD 3B/4
- Renal function at baseline, trend creatinine while on diuresis
Peripheral arterial disease status post right superior mesenteric artery stenting in 2019
- Continue aspirin, Plavix
Hyperlipidemia
- Continue statin
Rheumatoid arthritis
- Continue hydroxychloroquine, methotrexate
GERD
- Continue esomeprazole
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
Chronic anemia
Anxiety/depression
- Continue Lexapro
Obesity due to excess calories
- Affects all aspects of care
DVT prophylaxis�subcu heparin
Full code
Total time spent to see the patient on the floor, examine the patient, review data and lab results, discuss treatment plan with patient, nursing staff around 35 minutes.
Physical Exam
General: Obese, no acute distress
HEENT: Normocephalic, Atraumatic, EOMI, MMM
Respiratory: Clear to Auscultation bilaterally
Cardiac: Normal S1/S2, Regular Rate and Rhythm
GI: Soft, Nontender, Nondistended, Normal Bowel Sounds
Extremities: No Clubbing, Cyanosis, or Edema
Neuro: Nonfocal/Grossly Intact
Anticipated Discharge: Within 24 hours
Subjective/Interval History
-
Date of Service: October 07, 2024
Patient reports that her breathing is 50% improved. Denies chest pain, denies shortness of breath. No fever, no vomiting.
Objective Data
-
Labs:
Laboratory Results
10/07/24 10/07/24
06:11 06:12
WBC 6.7
Hgb 10.4 L
Hct 31.4 L
Plt Count 158
Sodium 139
Potassium 4.4
Chloride 110 H
Carbon Dioxide 22
BUN 33 H
Creatinine 1.5 H
Glucose 101 H
Calcium 8.9
Vital Signs:
Vital Signs
Temp Pulse Resp BP Pulse Ox
97.8 F 72 18 115/59 97
10/07/24 03:24 10/07/24 03:24 10/07/24 03:24 10/07/24 03:24 10/07/24 03:24
I&O
10/06/24 10/07/24 10/08/24
06:59 06:59 06:59
Intake Total 230 / 230
Output Total 800 / 800
Balance -570 / -570
[2024-10-07] MEDS: LASIX 40 MG IV (09:36)
[2024-10-07 09:37] LABS: Troponin I 0.018 ng/ml
[2024-10-07] MEDS: HEPARIN 5000 UNITS SC ×2 (09:37→19:30)
[2024-10-07] MEDS: PROTONIX 40 MG PO (10:40)
[2024-10-07] MEDS: PLAQUENIL 200 MG PO ×2 (10:40→19:30)
[2024-10-07] MEDS: FOLVITE 3 MG PO (10:40)
[2024-10-07] MEDS: PACERONE 200 MG PO (10:40)
[2024-10-07] MEDS: PLAVIX 75 MG PO (10:40)
[2024-10-07] MEDS: VITAMIN D3 (cholecalciferol) 50 MCG PO (10:40)
[2024-10-07] MEDS: ASPIR LOW (ENTERIC COATED) 81 MG PO (10:40)
[2024-10-07] MEDS: LEXAPRO 20 MG PO (10:41)
[2024-10-07] MEDS: COREG 3.125 MG PO ×2 (10:41→19:30)
--- NOTE | 2024-10-07 13:12 | CM ---
Met with patient to obtain information for assessment. Patient stated that she lives alone in Independent Living at [facility]. She described herself as independent with her ADLs and personal care, dressing and bathing. She can do household
chores, cook, clean and do laundry. She does go to the dining [employer] for dinner. She can drive and can get to her appointments and does all of her own driving. Patient stated that she has a rollator, cane, CPAP, shower chair and grab bars. She has had
VN in the past and has been to a SNF.
Patient has a prescription plan and uses, [facility] in [place] for all of her medications.
Her PCP is, Evangelina Ortiz.
Patient stated that functionally she feels she is at baseline and would like to return home when stable.
Plan: Case management will continue to follow and assist with discharge planning. Home will watch for needs.
--- NOTE | 2024-10-07 15:17 | W.PN.CD ---
Today's Communication / Plan
-
Anticipate using Lasix daily at discharge and second dose PRN instead of QOD
May need to rechallenge with low dose MRA and SGLT2-I, will have hear primary shiatsu therapist review with pt
Will see if changing Pacing to move LB earlier can produce negative lead +I. I contacted [employer].
Impression / Plan
-
Background: 84-year-old female with HFrEF EF 30 to 35%, nonischemic cardiomyopathy, left bundle branch block status post biventricular ICD implantation 09/20/2024, CKD stage IIIb, PAD status post superior mesenteric artery stenting 2019,
hyperlipidemia, rheumatoid arthritis, GERD, diverticulitis with perforation, P ANCA vasculitis who presents with acute on chronic HFpEF.
Acute on chronic HFrEF form a non-ischemic cardiomyopathy
- Continue IV Lasix
-LVEF 30-35% on echo 07/2024
-PO lasix 40mg Q-other day at home. Received 40mg IV lasix in ED. Continue daily IV lasix 40mg
-Reports dry weight of 177lbs (80 kg). Dry weight likely lower. Record daily weights, strict IandO while diuresing
- Admit weight 81 kg and now 79.1 kg
-Telemetry
-Follow kidney function closely
-GDMT limited due to chronic hypotension and adverse effects and cost. Continue Carvedilol
PAD:
S/P superior mesenteric artery stenting 2019.
-Continue asp, plavix, rosuvastatin
Essential hypertension:
- Stable on carvedilol
History of NSVT:
LBBB:
-Status post [employer] biventricular ICD implantation 09/20/2024
- The LV pacing precedes RV pacing by 30-40 ms and is fusing with RB conduction
-Device interrogated, with no new episodes
-hx ablation 2019
Subjective:
Feeling better
Cath 03/12/2025:
1:�Normal LVEDP (weight 168)
2:�Severe global hypokinesis with EF 31%
3. There is only trace MR by angiography
4. Mild aortic insufficiency
5. Mild aortic stenosis
6. No significant CAD
Echo 08/06/2024:
Mildly dilated LV with moderately reduced systolic function.
LVEF is 30-35% by visual estimation. Global diffuse hypokinesis.
Normal RV size and function.
Moderate to severe mitral regurgitation. Mild mitral stenosis.
Mild aortic stenosis.
Moderate aortic regurgitation.
Estimated pulmonary artery pressure of 38 mmHg assuming a right atrial pressure
of 3 mmHg.
Compared to prior from March 11, 2024, no significant change.
Physical Exam
Vital Signs/Labs
Vital Signs
Temp Pulse Resp BP Pulse Ox
98.3 F 75 16 92/50 97
10/07/24 11:00 10/07/24 11:00 10/07/24 11:00 10/07/24 11:00 10/07/24 11:00
10/06/24 10/07/24 10/08/24
06:59 06:59 06:59
Actual Weight 79.152 kg
10/07/24 06:11
10/07/24 06:12
10/06/24
11:07
[id number]-[id number] Pept 9520
LAB Results
10/06/24 10/06/24 10/06/24
10:38 11:07 17:04
Troponin I Cancelled 0.019 0.023
10/06/24 10/07/24 10/07/24
22:42 06:11 09:01
Troponin I 0.022 0.020 0.018
Physical Exam
Constitutional: No acute distress
EENT: Anicteric
Cardiovascular: Rhythm & rate is regular and Pedal edema is absent
Respiratory: Respiratory effort normal and Lungs clear to auscul.
GI: Soft and Distention absent
Neuro/Psych: AO x 3
Data Reviewed
-
Date of Service: October 07, 2024
[2024-10-07] MEDS: CRESTOR 10 MG PO (21:13)
[2024-10-08] VITALS (7 sets, daily range): BP systolic 96–121; BP diastolic 51–64; BMI 30.9
[2024-10-08] MEDS: SYNTHROID 50 MCG PO (05:03)
[2024-10-08 07:54] LABS: Blood Urea Nitrogen 40 mg/dl (7-17); Calcium 9.1 mg/dl (8.4-10.2); Carbon Dioxide 25 mmol/L (22-30); Chloride 108 mmol/L (98-107); Estimated Creatinine Clearance 27 ml/min; Glucose 98 mg/dl (70-99); Potassium 4.6 mmol/L (3.5-5.1); Sodium 139 mmol/L (135-145)
[2024-10-08] MEDS: LASIX 40 MG IV ×2 (08:22→15:29)
[2024-10-08] MEDS: HEPARIN 5000 UNITS SC ×2 (08:25→19:51)
[2024-10-08] MEDS: PACERONE 200 MG PO (08:26)
[2024-10-08] MEDS: FOLVITE 3 MG PO (08:26)
[2024-10-08] MEDS: ASPIR LOW (ENTERIC COATED) 81 MG PO (08:26)
[2024-10-08] MEDS: LEXAPRO 20 MG PO (08:26)
[2024-10-08] MEDS: COREG 3.125 MG PO (08:26)
[2024-10-08] MEDS: PROTONIX 40 MG PO (08:26)
[2024-10-08] MEDS: PLAVIX 75 MG PO (08:26)
[2024-10-08] MEDS: VITAMIN D3 (cholecalciferol) 50 MCG PO (08:26)
[2024-10-08] MEDS: PLAQUENIL 200 MG PO ×2 (08:26→19:52)
--- NOTE | 2024-10-08 08:41 | W.PN.HOSP.TC ---
Today's Communication/Plan
-
Cardiology increased IV Lasix
Probable discharge tomorrow
Assessment / Plan
Assessment / Plan
HPI: 84-year-old female past medical history of nonischemic cardiomyopathy, chronic HFrEF, nonsustained V. tach with ICD, hypertension, CKD 3B/4, peripheral arterial disease with right superior mesenteric artery stenting in 2019, hyperlipidemia,
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 She has mild nonproductive cough. No
swelling in the legs. She does have some tightness in the chest described as a band around her chest all the time but which she gets when she has heart failure but denies chest pain. No fevers or chills. She has had mild headache for the past
week. She had mechanical fall with head strike, but never sought evaluation despite being on Plavix. Denies any other injuries from the fall. Has been compliant with low-salt diet.
He was on Lasix 40 mg daily but she was getting lightheadedness so this was decreased to every other day 3 months ago. No other changes to cardiac meds.
#Acute on chronic HFrEF exacerbation
#Nonischemic cardiomyopathy
Cardiac BNP of 9500
Chest x-ray shows moderate pulmonary edema, small bilateral pleural effusions
Cardiology following, Lasix increased to 40 mg IV twice daily
Continue Coreg
Trend creatinine, trend daily weights
Probable discharge tomorrow
Recent fall with head injury
- CT head and cervical spine shows no acute abnormality
- PT/OT - rec SNF -patient wishes to go home with home care
Nonsustained ventricular tachycardia status post ICD
- Continue amiodarone, coreg
Constipation
� Start laxatives
Essential hypertension
CKD 3B/4
- Renal function at baseline, trend creatinine while on diuresis
Peripheral arterial disease status post right superior mesenteric artery stenting in 2019
- Continue aspirin, Plavix
Hyperlipidemia
- Continue statin
Rheumatoid arthritis
- Continue hydroxychloroquine, methotrexate
GERD
- Continue esomeprazole
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
Chronic anemia
Anxiety/depression
- Continue Lexapro
Obesity due to excess calories
- Affects all aspects of care
DVT prophylaxis�subcu heparin
Full code
Total time spent to see the patient on the floor, examine the patient, review data and lab results, discuss treatment plan with patient, nursing staff around 42 minutes.
Physical Exam
General: Obese, no acute distress
HEENT: Normocephalic, Atraumatic, EOMI, MMM
Respiratory: Right basilar crackles
Cardiac: Normal S1/S2, Regular Rate and Rhythm
GI: Soft, Nontender, distended, Normal Bowel Sounds
Extremities: No Clubbing, Cyanosis, or Edema
Neuro: Nonfocal/Grossly Intact
Anticipated Discharge: Within 24 hours
Subjective/Interval History
-
Date of Service: October 08, 2024
Patient continues to have dyspnea with activity, improved. She feels like her abdomen is distended. She had a small bowel movement yesterday. Denies chest pain. No fever, no vomiting.
Objective Data
-
Labs:
Laboratory Results
10/08/24
06:17
Sodium 139
Potassium 4.6
Chloride 108 H
Carbon Dioxide 25
BUN 40 H
Creatinine 1.6 H
Glucose 98
Calcium 9.1
Vital Signs:
Vital Signs
Temp Pulse Resp BP Pulse Ox
97.8 F 69 18 116/64 100
10/08/24 03:11 10/08/24 08:26 10/08/24 03:11 10/08/24 08:22 10/08/24 03:11
I&O
10/07/24 10/08/24 10/09/24
06:59 06:59 06:59
Intake Total 230 / 230 660 / 660
Output Total 800 / 800
Balance -570 / -570 660 / 660
--- NOTE | 2024-10-08 08:53 | W.PN.CD ---
Today's Communication / Plan
-
increase lasix to IV BID today, likely transition to po tomorrow
dc planning
Impression / Plan
-
Background: 84-year-old female with HFrEF EF 30 to 35%, nonischemic cardiomyopathy, left bundle branch block status post biventricular ICD implantation 09/20/2024, CKD stage IIIb, PAD status post superior mesenteric artery stenting 2019,
hyperlipidemia, rheumatoid arthritis, GERD, diverticulitis with perforation, P ANCA vasculitis who presents with acute on chronic HFpEF.
Acute on chronic HFrEF form a non-ischemic cardiomyopathy
- Continue IV Lasix, will increase to BID, as still with abd distension, elevated jvp and rales
-LVEF 30-35% on echo 07/2024, mod to severe MR
-PO lasix 40mg Q-other day at home. Will need daily dose on dispo
-Reports dry weight of 177lbs (80 kg). Will need to challenge
-Telemetry
-Follow kidney function closely
-GDMT is limited by side effect of lightheadedness with increased Coreg. She had a acute kidney injury overlying her chronic CKD with ARB and MRA. Had a recent UTI will not start SGLT2 inhibitor additionally this was cost prohibitive in the future
past.
-IF NO IMPROVEMENT WITH densitometer reader WILL CONSIDER MITRACLIP EVALUATION
PAD:
S/P superior mesenteric artery stenting 2019.
-Continue asp, plavix, rosuvastatin
Essential hypertension:
- Stable on carvedilol
History of NSVT:
LBBB:
-Status post [employer] biventricular ICD implantation 09/20/2024--D/W Dr Fortune this has been optimized
- The LV pacing precedes RV pacing by 30-40 ms and is fusing with RB conduction
-Device interrogated, with no new episodes
-hx ablation 2019
Subjective:
Feeling better, still with abdominal fullness, but sob improved
Cath 03/12/2025:
1:�Normal LVEDP (weight 168)
2:�Severe global hypokinesis with EF 31%
3. There is only trace MR by angiography
4. Mild aortic insufficiency
5. Mild aortic stenosis
6. No significant CAD
Echo 08/06/2024:
Mildly dilated LV with moderately reduced systolic function.
LVEF is 30-35% by visual estimation. Global diffuse hypokinesis.
Normal RV size and function.
Moderate to severe mitral regurgitation. Mild mitral stenosis.
Mild aortic stenosis.
Moderate aortic regurgitation.
Estimated pulmonary artery pressure of 38 mmHg assuming a right atrial pressure
of 3 mmHg.
Compared to prior from March 11, 2024, no significant change.
Physical Exam
Vital Signs/Labs
Vital Signs
Temp Pulse Resp BP Pulse Ox
97.8 F 69 18 116/64 100
10/08/24 03:11 10/08/24 08:26 10/08/24 03:11 10/08/24 08:22 10/08/24 03:11
10/07/24 10/08/24 10/09/24
06:59 06:59 06:59
Actual Weight 174 lb 8 oz 174 lb 2 oz
10/07/24 06:11
10/08/24 06:17
10/06/24
11:07
Rvw-K-Pgbgyfpqmpq Pept 9520
LAB Results
10/06/24 10/06/24 10/06/24
10:38 11:07 17:04
Troponin I Cancelled 0.019 0.023
10/06/24 10/07/24 10/07/24
22:42 06:11 09:01
Troponin I 0.022 0.020 0.018
Physical Exam
Constitutional: No acute distress
Cardiovascular: Rhythm & rate is regular, Pedal edema is absent, Systolic murmur absent, Diastolic murmur absent and JVD present (13 at 90 degrees)
Respiratory: Respiratory effort normal and Crackles Present (at the right base)
GI: Soft
Neuro/Psych: AO x 3
Data Reviewed
-
Date of Service: October 08, 2024
EKG: Other (tele pacing)
[2024-10-08] MEDS: MIRALAX 17 GRAMS PO (09:55)
[2024-10-08] MEDS: TYLENOL 650 MG PO (16:23)
[2024-10-08] MEDS: CRESTOR 10 MG PO (19:51)
[2024-10-08] MEDS: COREG PO (21:07)
[2024-10-09 03:31] VITALS: BP 102/52; BMI 30.8
[2024-10-09] MEDS: SYNTHROID 50 MCG PO (05:33)
[2024-10-09] MEDS: LASIX 40 MG IV (07:55)
[2024-10-09] MEDS: PLAQUENIL 200 MG PO (07:56)
[2024-10-09] MEDS: FOLVITE 3 MG PO (07:56)
[2024-10-09] MEDS: HEPARIN 5000 UNITS SC (07:56)
[2024-10-09] MEDS: VITAMIN D3 (cholecalciferol) 50 MCG PO (07:57)
[2024-10-09] MEDS: COREG 3.125 MG PO (07:57)
[2024-10-09 07:58] VITALS: BP 109/63
[2024-10-09] MEDS: LEXAPRO 20 MG PO (07:58)
[2024-10-09] MEDS: MIRALAX 17 GRAMS PO (07:58)
[2024-10-09] MEDS: ASPIR LOW (ENTERIC COATED) 81 MG PO (07:58)
[2024-10-09] MEDS: PROTONIX 40 MG PO (07:58)
[2024-10-09] MEDS: PACERONE 200 MG PO (07:58)
[2024-10-09] MEDS: PLAVIX 75 MG PO (07:58)
--- NOTE | 2024-10-09 08:10 | W.PN.CD ---
Today's Communication / Plan
-
home on furosemide 40mg po daily
will need to reassess EF 8/2 after 90 days of [facility]
will arrange hf f/u
Impression / Plan
-
Background: 84-year-old female with HFrEF EF 30 to 35%, nonischemic cardiomyopathy, left bundle branch block status post biventricular ICD implantation 09/20/2024, CKD stage IIIb, PAD status post superior mesenteric artery stenting 2019,
hyperlipidemia, rheumatoid arthritis, GERD, diverticulitis with perforation, P ANCA vasculitis who presents with acute on chronic HFpEF.
Acute on chronic HFrEF form a non-ischemic cardiomyopathy
-Improved in sx and exam
-LVEF 30-35% on echo 07/2024, mod to severe MR
-transition to furosemide 40mg po daily dosing ---this is an increase in her prior home dosing.
- New dry weight 173-174 pounds
-GDMT is limited by side effect of lightheadedness with increased Coreg. She had a acute kidney injury overlying her chronic CKD with ARB and MRA. Had a recent UTI will not start SGLT2 inhibitor additionally this was cost prohibitive in the future
past.
-IF NO IMPROVEMENT WITH [facility] REFINISHER WILL CONSIDER MITRACLIP EVALUATION
- Will arrange outpatient heart failure follow-up.
PAD:
S/P superior mesenteric artery stenting 2019.
-Continue asp, plavix, rosuvastatin
Essential hypertension:
- Stable on carvedilol
History of NSVT:
LBBB:
-Status post [employer] biventricular ICD implantation 09/20/2024--D/W Dr Fortune this has been optimized
- The LV pacing precedes RV pacing by 30-40 ms and is fusing with RB conduction
-Device interrogated, with no new episodes
-hx ablation 2019
Subjective:
Feeling better, abd distension resolved, no robertson
Cath 03/12/2025:
1:�Normal LVEDP (weight 168)
2:�Severe global hypokinesis with EF 31%
3. There is only trace MR by angiography
4. Mild aortic insufficiency
5. Mild aortic stenosis
6. No significant CAD
Echo 08/06/2024:
Mildly dilated LV with moderately reduced systolic function.
LVEF is 30-35% by visual estimation. Global diffuse hypokinesis.
Normal RV size and function.
Moderate to severe mitral regurgitation. Mild mitral stenosis.
Mild aortic stenosis.
Moderate aortic regurgitation.
Estimated pulmonary artery pressure of 38 mmHg assuming a right atrial pressure
of 3 mmHg.
Compared to prior from March 11, 2024, no significant change.
Physical Exam
Vital Signs/Labs
Vital Signs
Temp Pulse Resp BP Pulse Ox
97.9 F 71 18 109/63 99
10/09/24 07:58 10/09/24 07:58 10/09/24 07:58 10/09/24 07:58 10/09/24 07:58
10/08/24 10/09/24 10/10/24
06:59 06:59 06:59
Actual Weight 174 lb 2 oz 173 lb 9.6 oz
10/07/24 06:11
10/06/24
11:07
Cez-T-Cdpacsotacb Pept 9520
LAB Results
10/06/24 10/06/24 10/06/24
10:38 11:07 17:04
Troponin I Cancelled 0.019 0.023
10/06/24 10/07/24 10/07/24
22:42 06:11 09:01
Troponin I 0.022 0.020 0.018
Physical Exam
Constitutional: No acute distress
Cardiovascular: Rhythm & rate is regular, Pedal edema is absent, JVD pressure is normal, Systolic murmur absent, Diastolic murmur absent and Pedal edema present
Respiratory: Respiratory effort normal, Lungs clear to auscul., Wheeze Absent, Crackles Absent and Rhonchi Absent
Neuro/Psych: AO x 3
Data Reviewed
-
Date of Service: October 09, 2024
Medical Decision Making: Review of Case with other Provider (Dr Rivas ok to discharge on increase furosemide frequency)
EKG: Other (tele vpace)
--- NOTE | 2024-10-09 08:52 | W.PN.HOSP.TC ---
Today's Communication/Plan
-
Cleared by cardiology for discharge today
Assessment / Plan
Assessment / Plan
HPI: 84-year-old female past medical history of nonischemic cardiomyopathy, chronic HFrEF, nonsustained V. tach with ICD, hypertension, CKD 3B/4, peripheral arterial disease with right superior mesenteric artery stenting in 2019, hyperlipidemia,
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 She has mild nonproductive cough. No
swelling in the legs. She does have some tightness in the chest described as a band around her chest all the time but which she gets when she has heart failure but denies chest pain. No fevers or chills. She has had mild headache for the past
week. She had mechanical fall with head strike, but never sought evaluation despite being on Plavix. Denies any other injuries from the fall. Has been compliant with low-salt diet.
He was on Lasix 40 mg daily but she was getting lightheadedness so this was decreased to every other day 3 months ago. No other changes to cardiac meds.
#Acute on chronic HFrEF exacerbation
#Nonischemic cardiomyopathy
Cardiac BNP of 9500
Chest x-ray shows moderate pulmonary edema, small bilateral pleural effusions
Cardiology following, resolved on Lasix 40 mg IV twice daily
Continue Coreg
Cleared by cardiology for discharge on Lasix 40 mg p.o. daily, changed from previous dose of Lasix 40 mg p.o. every 48 hours
Follow-up with PCP in 1 week and cardiology in the office as scheduled
Acute kidney injury superimposed on CKD 3B/4
- Bumped creatinine due to diuresis
Recent fall with head injury
- CT head and cervical spine shows no acute abnormality
- PT/OT - rec SNF -patient wishes to go home with home care
Nonsustained ventricular tachycardia status post ICD
- Continue amiodarone, coreg
Constipation
� Resolved on laxatives
Essential hypertension
Peripheral arterial disease status post right superior mesenteric artery stenting in 2019
- Continue aspirin, Plavix
Hyperlipidemia
- Continue statin
Rheumatoid arthritis
- Continue hydroxychloroquine, methotrexate
GERD
- Continue esomeprazole
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
Chronic anemia
Anxiety/depression
- Continue Lexapro
Obesity due to excess calories
- Affects all aspects of care
DVT prophylaxis�subcu heparin
Full code
Physical Exam
General: Obese, no acute distress
HEENT: Normocephalic, Atraumatic, EOMI, MMM
Respiratory: Right basilar crackles
Cardiac: Normal S1/S2, Regular Rate and Rhythm
GI: Soft, Nontender, distended, Normal Bowel Sounds
Extremities: No Clubbing, Cyanosis, or Edema
Neuro: Nonfocal/Grossly Intact
Anticipated Discharge: Today
Subjective/Interval History
-
Date of Service: October 09, 2024
Patient reports feeling better. Her dyspnea with activity resolved. She has intermittent coughing. No fever, no vomiting.
Objective Data
-
Labs:
Laboratory Results
10/09/24
08:02
Sodium Pending
Potassium Pending
Chloride Pending
Carbon Dioxide Pending
BUN Pending
Creatinine Pending
Glucose Pending
Calcium Pending
Vital Signs:
Vital Signs
Temp Pulse Resp BP Pulse Ox
97.9 F 71 18 109/63 99
10/09/24 07:58 10/09/24 07:58 10/09/24 07:58 10/09/24 07:58 10/09/24 07:58
I&O
10/08/24 10/09/24 10/10/24
06:59 06:59 06:59
Intake Total 660 / 660 920 / 920
Balance 660 / 660 920 / 920
--- NOTE | 2024-10-09 11:35 | W.DCSUMMARY ---
Discharge Summary
Discharge Data
Date of Admission: 10/06/24
Date of Discharge: 10/09/24
-
Pending Results: No
Hospital Course
Discharge diagnosis:
Acute on chronic heart failure with reduced ejection fraction
Nonischemic cardiomyopathy
Acute kidney injury superimposed on stage III/IV chronic kidney disease
Recent fall with head injury
Nonsustained ventricular tachycardia status post intracardiac defibrillator
Constipation
Essential hypertension
Peripheral artery disease
Consults: Cardiology
Chest x-ray:
Moderate pulmonary edema. Small bilateral pleural effusions.
Head CT:
No acute intracranial abnormality.
C-spine CT:
No CT evidence for an acute posttraumatic abnormality of the cervical spine.
Hospital course:
84-year-old female with a past medical history of CHF, CKD, NSVT status post ICD, and PAD was admitted for acute on chronic heart failure with a reduced ejection fraction. Patient was seen in conjunction with cardiology. She is on Lasix 40 mg
every 48 hours at home. She was diuresed with Lasix 40 mg IV daily, then increased to twice a day by cardiology. Her shortness of breath resolved. However, her creatinine did bump. Her baseline is 1.6, and her creatinine increased to 2.1. This
is due to diuresis.
Patient had a recent fall prior to admission. Head CT and C-spine CT were negative. She was seen in conjunction with PT, who recommended short-term rehab. Patient declined, she wished to go home with home care.
Patient is cleared by cardiology for discharge. Cardiology increased the frequency of her home Lasix dose to 40 mg daily. She needs to follow-up with cardiology in the office as scheduled. She also needs to follow-up with her primary care doctor
in 1 week.
Disposition: Home with home care
Discharge planning: Required 39 minutes
Discharge Plan
-
Patient Disposition: Home with Home Care
Discharge Diagnosis/Procedures: Acute on chronic heart failure with reduced ejection fraction
Condition: Fair
Diet: Low Cholesterol and 2 Gram Sodium
Activity: As tolerated
Driving Restrictions: As prior to admission
Specialty Instructions: Weigh Daily- Call MD for wt gain/loss 3 lbs overnight/5 lbs in 1 week
Activity Restrictions/Additional Instructions:
Cardiology recommends you take furosemide 40 mg daily.
Follow-up with cardiology in the office as scheduled, and your primary care doctor in 1 week.
Instructions: *CBC Heart Failure Instructions
Referrals:
Evangelina Ortiz MD [Family Provider] - in one week
Fred Ridley MD [Active] - 10/25/24 3:20 pm
Prescriptions:
Continued
hydroxychloroquine 200 MG tablet
200 mg PO BID
rosuvastatin 10 MG tablet
10 mg PO HS
clopidogrel 75 MG tablet
75 mg PO DAILY
esomeprazole magnesium 40 MG capsule,delayed release(DR/EC)
40 mg PO DAILY
cholecalciferol (vitamin D3) 2,000 UNITS tablet
2,000 units PO DAILY
aspirin 81 MG tablet,delayed release (DR/EC)
81 mg PO DAILY
methotrexate sodium 2.5 mg Tablet
7.5 mg PO SA
escitalopram oxalate 20 mg Tablet
20 mg PO DAILY
folic acid 1 mg tablet
3 mg PO DAILY
carvedilol 3.125 mg Tablet
3.125 mg PO BID
amiodarone 200 mg tablet
200 mg PO DAILY
cranberry extract 425 mg Capsule
425 mg PO DAILY
levothyroxine 50 mcg Tablet
50 mcg PO DAILY
Changed
furosemide 40 mg tablet
40 mg PO DAILY Qty: 30 0RF
Discharge Orders:
Discharge Patient (As Directed); Ordered 10/09/24
Ordered By: Masood Rivas
Discharge Date and Time
Discharge Date/Time: 10/09/24 13:27
Print Language: GREEK
[2024-10-09 11:44] LABS: Blood Urea Nitrogen 44 mg/dl (7-17); Calcium 9.5 mg/dl (8.4-10.2); Carbon Dioxide 29 mmol/L (22-30); Chloride 106 mmol/L (98-107); Estimated Creatinine Clearance 20 ml/min; Glucose 96 mg/dl (70-99); Potassium 4.2 mmol/L (3.5-5.1); Sodium 141 mmol/L (135-145); eGFR 22.95
[2024-10-09 11:47] VITALS: BP 109/66
--- NOTE | 2024-10-10 09:41 | W.HF.CON ---
Heart Failure
- LV Function
Left ventricular function study result: LV Ejection fraction </= 35% (ECHO 08/06/24)
Ejection Fraction Percentage: 30-35
- ARNI
Patient already on ARNI: No
Heart Failure ARNI Contraindication: Acute Renal Failure, Hypotension
- ACEI/ARB
Patient already on ACEI/ARB: No
Heart Failure ACEI/ARB Contraindication: Acute Renal Failure, Hypotension
- Beta Sachin
Patient already on Evidence Based Beta Sachin: Yes
- Mineralocorticord Receptor Antagonist
Patient already on MRA: No
Heart Failure MRA Contraindication: Acute Renal Insufficiency, Hypotension
- SGLT-2 Inhibitor
Patient already on SGLT-2 Inhibitor: No
Heart Failure SGLT-2 Inhibitor Contraindication: eGFR < 25, Patient Refusal (UTI)
- NYHA CHF Classification
NYHA CHF Classification Level: Class III - Symptoms w/ min exertion, interferes w/ nml daily activity
- ACC/AHA Stage
ACC/AHA Stage: Stage C: Symptomatic Heart Failure
--- NOTE | 2024-10-11 15:06 | HFEDUCATE ---
Pt had 72 hr phone call from PCP rep Jennifer Maldonado on 10/10/24 at 9:27 AM to discuss discharge recommendations and F/U.
== END 2024-10-09 13:27 | disposition home or self-care (01) | DRG 291 ==
LOC: 4 EAST ACU 13:40
PROVIDERS: ADMITTING PHYSICIAN Hospitalist; ATTENDING PHYSICIAN Family Medicine; CONSULT PHYSICIAN Internal Medicine Cardiovascular Disease; EMERGENCY PHYSICIAN Emergency Medicine; FAMILY PHYSICIAN Internal Medicine
DX: I13.0 Hypertensive heart and chronic kidney disease with heart failure and stage 1 through stage 4 chronic kidney disease, or unspecified chronic kidney disease (principal); I50.23 Acute on chronic systolic (congestive) heart failure; N17.9 Acute kidney failure, unspecified; I47.20 Ventricular tachycardia, unspecified; N18.32 Chronic kidney disease, stage 3b; W19.XXXA Unspecified fall, initial encounter; Z95.810 Presence of automatic (implantable) cardiac defibrillator; I73.9 Peripheral vascular disease, unspecified; I42.8 Other cardiomyopathies; K21.9 Gastro-esophageal reflux disease without esophagitis; E78.00 Pure hypercholesterolemia, unspecified; M06.9 Rheumatoid arthritis, unspecified; Z79.899 Other long term (current) drug therapy; Z96.643 Presence of artificial hip joint, bilateral; Z88.2 Allergy status to sulfonamides; Z79.82 Long term (current) use of aspirin; Z79.890 Hormone replacement therapy; Z79.02 Long term (current) use of antithrombotics/antiplatelets; Z88.3 Allergy status to other anti-infective agents; Z91.048 Other nonmedicinal substance allergy status; D63.1 Anemia in chronic kidney disease; E03.9 Hypothyroidism, unspecified; F32.A Depression, unspecified; F41.9 Anxiety disorder, unspecified; I44.7 Left bundle-branch block, unspecified; T50.2X5A Adverse effect of carbonic-anhydrase inhibitors, benzothiadiazides and other diuretics, initial encounter; K59.00 Constipation, unspecified; E66.09 Other obesity due to excess calories; Z68.30 Body mass index [BMI] 30.0-30.9, adult
CPT/HCPCS: 70450; 71046; 72125; 80048; 80053; 83690; 83880; 84484; 85025; 93005; 97116; 97163; 97167; 97535; 99285

== ENCOUNTER → 2024-12-03 12:43 | Outpatient (REF) | payer MEDICARE, BC, SELFPAY | LOC: RCS 12:43 | PROVIDERS: ATTENDING PHYSICIAN Internal Medicine Cardiovascular Disease; FAMILY PHYSICIAN Internal Medicine | DX: I50.20 Unspecified systolic (congestive) heart failure (principal); I08.0 Rheumatic disorders of both mitral and aortic valves | CPT/HCPCS: 93306 ==

== ENCOUNTER 2024-12-27 07:10 | Day surgery (SDC) | payer MEDICARE, BC, SELFPAY | END 2024-12-27 09:52 | disposition home or self-care (01) | LOC: CATH 07:10 | PROVIDERS: ATTENDING PHYSICIAN Internal Medicine Cardiovascular Disease; FAMILY PHYSICIAN Internal Medicine | DX: I08.3 Combined rheumatic disorders of mitral, aortic and tricuspid valves (principal); I08.8 Other rheumatic multiple valve diseases; I11.0 Hypertensive heart disease with heart failure; I50.22 Chronic systolic (congestive) heart failure; I13.0 Hypertensive heart and chronic kidney disease with heart failure and stage 1 through stage 4 chronic kidney disease, or unspecified chronic kidney disease; N18.30 Chronic kidney disease, stage 3 unspecified; Z79.82 Long term (current) use of aspirin; Z79.899 Other long term (current) drug therapy; Z95.820 Peripheral vascular angioplasty status with implants and grafts | CPT/HCPCS: 93312; 93320; 93325 ==

== ENCOUNTER → 2025-01-16 13:41 | Outpatient (REF) | payer MEDICARE, BC, SELFPAY | LOC: MRI 13:41 | PROVIDERS: ATTENDING PHYSICIAN Otolaryngology; FAMILY PHYSICIAN Internal Medicine | DX: R42 Dizziness and giddiness (principal) | CPT/HCPCS: 70551 ==

== ENCOUNTER 2025-02-18 04:56 | Inpatient (IN) | payer MEDICARE, BC, SELFPAY ==
[2025-02-11 08:25] VITALS: BMI 31.4
[2025-02-11 09:34] LABS: Hematocrit 31.3 % (37.0-47.0); Hemoglobin 10.0 g/dL (12.0-16.0); Mean Corp Hgb Conc. 31.9 g/dL (33.0-37.0); Mean Corpuscular Volume 91.8 fL (81.0-99.0); Nucleated Red Blood Cells % 0 %; Platelet Count 164 10^3/uL (130-400); Red Cell Dist. Width 17.4 % (11.5-14.5)
[2025-02-11 09:37] LABS: Urine Character Slightly Cloudy (Clear)
[2025-02-11 09:37] LABS: INR 1.14; PT 14.9 Sec (11.4-14.6)
[2025-02-11 10:15] LABS: ALT (SGPT) 13 U/L (0-35); AST (SGOT) 19 U/L (14-36); Albumin 4.2 g/dl (3.5-5.0); Alkaline Phosphatase 47 U/L (38-126); Blood Urea Nitrogen 30 mg/dl (7-17); Calcium 9.7 mg/dl (8.4-10.2); Carbon Dioxide 28 mmol/L (22-30); Chloride 104 mmol/L (98-107); Estimated Creatinine Clearance 19 ml/min; Glucose 130 mg/dl (70-99); Potassium 4.2 mmol/L (3.5-5.1); Sodium 140 mmol/L (135-145); Total Protein 6.7 g/dl (6.3-8.2); eGFR 21.70
[2025-02-11 10:55] LABS: Urine White Cell 70-80 /HPF (0-5)
[2025-02-11 10:56] LABS: Urine Red Blood Cell 0-2 /HPF (0-2)
[2025-02-11 11:46] LABS: Glycohemoglobin (HgbA1c) 5.1 % (4.0-5.6)
--- NOTE | 2025-02-11 11:49 | CM ---
Met with Mrs. Wisdom in [facility]. She states prior to admission she resides alone in a apartment at [facility]. She states she has been there for fifteen years. She states prior to admission she ambulates with a single point cane or
rollator. She states she has a single point cane, rollator and shower chair at home. She states she has a prescription plan and uses mail order. She states her friend will stay with her for two days when she goes home. The discharge plan is to
return home with her friend staying two days and a home visit by the Transitional Care Nurse when medically stable.
We reviewed pre-op and post-op routines. We reviewed the shower instructions. She has the soap, written instructions and the MitraClip Booklet. We also reviewed restrictions including driving and lifting restrictions. We discussed a home visit by
the Transitional Care Nurse. She is agreeable to a home visit. The plan is for MitraClip on Tuesday, February 18, 2025.
[2025-02-18] VITALS (25 sets, daily range): BP systolic 87–144; BP diastolic 46–100; BMI 30.6
[2025-02-18] MEDS: BACTROBAN 2% OINTMENT 1 APPLIC NASAL (05:38)
--- NOTE | 2025-02-18 06:01 | PTCARENOTE ---
Received direct admit into room 2246 for a scheduled mitral clip. Security brought pt up via WC. Patient ambulated w/ standby assist and used personal cane. Patient reports she gets lightheaded at times w/ ambulating. B/l BPs obtained. Tele monitor
applied briefly, pt Vpaced. Strip placed in chart. Pt clipped and CHG wipes completed. Patient reports she hasn't eaten since yesterday. Patient took 81mg Aspirin along with 75mg of Plavix at 03:00. IV placed in left forearm. Admission q's and med
rec completed. Patient oriented to room. Call fernando within reach.
[2025-02-18] MEDS: ANCEF 10 IV ×2 (08:19→09:19)
[2025-02-18 10:30] LABS: ACT-LR - POC 281 Seconds (116-155)
[2025-02-18 10:40] LABS: ACT-LR - POC 316 Seconds (116-155)
[2025-02-18 11:02] LABS: ACT-LR - POC 300 Seconds (116-155)
[2025-02-18 11:12] LABS: ACT-LR - POC 334 Seconds (116-155)
[2025-02-18 11:27] LABS: ACT-LR - POC 294 Seconds (116-155)
[2025-02-18 11:27] LABS: ACT-LR - POC 237 Seconds (116-155)
[2025-02-18 11:27] LABS: ACT-LR - POC 382 Seconds (116-155)
[2025-02-18 11:27] LABS: ACT-LR - POC 261 Seconds (116-155)
[2025-02-18 11:33] LABS: ACT-LR - POC 302 Seconds (116-155)
[2025-02-18 11:43] LABS: ACT-LR - POC 324 Seconds (116-155)
--- NOTE | 2025-02-18 11:50 | CM ---
pt in OR/CCL today, cm following.
--- NOTE | 2025-02-18 12:27 | ITS.CL.CATH ---
Him Assistant - Catheterization
Cardiac Catheterization
Procedure Report:
TRANSCATHETER EDGE - TO - EDGE MITRAL VALVE REPAIR (ALEXANDRA)/MITRACLIP REPORT
Date: February 18, 2025
Referring:Lisseth Ridley MD
Preoperative diagnosis: Severe functional mitral valve regurgitation
Postoperative diagnosis: Severe functional mitral valve regurgitation
Procedure(s): Transcatheter mitral valve edge to edge repair/MitraClip using one NTW
Preprocedure MR severity: Severe
Postprocedure MR severity: Moderate
Interventional Cardiology Operators: Drs. Lissa Roa (trans-septal puncture), and Daryl Hensley (clip delivery)
ACCESS:
1. Right common femoral vein, 24 Burmese sheath, under ultrasound guidance using a micropuncture kit.
Ultrasound was utilized for vascular access. The right femoral vein were visualized under ultrasound, and the vessels was patent. An image was stored permanently in the patient's medical record. Under direct ultrasound guidance, an 8 Burmese
sheaths was first inserted into the right common femoral vein using a micropuncture kit through a modified Seldinger technique.
ISABEL Abstract Searcher(s): Lisseth Ridley
Anesthesia: GETA provided by the anesthesia staff.
Estimated Blood Loss: Minimal
Complications: None
Condition: Stable
PROCEDURAL DETAILS:
The patient was brought to the cardiac catheterization lab and anesthetized by the anesthesiology staff. A transesophageal probe was placed and preliminary echocardiography was performed. The patient was prepped and draped in standard sterile
fashion. The right common femoral vein was accessed using a modified Seldinger technique with a micropuncture kit under ultrasound guidance. The vein was dilated with an 8 Burmese dilator then preclosed with a Perclose percutaneous suture. And 8
Burmese sheath was placed in the femoral vein. Heparin 6000 units was given.
The [employer] system was prepped on the back table. The J-wire for the versa cross was advanced into the superior vena cava and the 8 Burmese sheath was removed. The transseptal sheath was advanced over the wire and into the superior vena
cava. The J-wire was removed and the versa cross wire was advanced to the distal tip of the sheath, but remained within the dilator. This sheath was positioned in the interatrial septum with confirmed position on ISABEL. Transseptal puncture was
performed by Dr. Irineo Montgomery and the sheath was advanced into the left atrium. Additional heparin was given to achieve a therapeutic ACT. ACT was confirmed above 250 seconds. Oxygen saturation confirmed presence in the left atrium.
The MitraClip steerable sheath was prepped on the back table. The [place] sheath was withdrawn keeping the versa cross wire in the left atrium. The femoral vein was serially dilated and the steerable sheath was advanced through the vein, easily
crossing into the left atrium. Once we had satisfactory purchase of the sheath inside the left atrium the dilator and versa cross wire were removed and the steerable sheath was completely de-aired and flushed.
A NTW MitraClip Delivery System was prepped on the back table. The clip was advanced through the steerable sheath and into the left atrium. The clip was oriented and advanced subvalvular to the mitral valve. Once we were satisfied with with
position, the grippers were lowered and the clip arms were tightened to 60 degrees. This demonstrated good position and clip stability. The clip was fully closed demonstrating moderate mitral regurgitation mostly laterally. Transvalvular gradient
was 6. Given near complete isolation of the chest laterally with a gradient already of 6 mmHg which could preclude a second NT clip placement we decided to release our grasp and attempt moving a bit more laterally. When we did this unfortunately
we identified with already baseline poor ISABEL images due to very tough anatomy that there was not significant posterior leaflet length to grasp laterally with a large calcified lesion at the annulus which made it extremely difficult. We attempted to
grasp however were left with more significant mitral regurgitation and therefore decided not to take this either. We came back atrial lead and we oriented the clip to try and mimic our initial grasp in the middle. At this point similar to the
first time we were left with moderate mitral regurgitation laterally however given we did not have significant leaflet length to grass laterally anyway we decided to do further evaluation here. The trans mitral mean gradient was 5 mmHg at a MAP of
75 and heart rate of 76 bpm. We were satisfied with these preliminary results and the clip was deployed. The delivery system was removed from the steerable sheath.
The mitral valve was reevaluated. Mitral valve regurgitation was now graded at moderate. Mitral valve regurgitation continue to remain stable with good systemic blood pressure, good tissue bridge on 3D imaging and stable mitral valve gradient at 5
mmHg. No pericardial effusion was noted.
At this point, we were satisfied with our results. The steerable sheath was withdrawn into the right atrium, then negative tension was applied to straighten the catheter. The steerable sheath was withdrawn and the Perclose percutaneous suture was
tightened with good hemostasis.
The patient tolerated the procedure well, was brought out of anesthesia and transferred to the CVICU in stable condition.
IMPLANT(S)/POSITION:
1. NTW MitraClip on A2-P2
RADIATION: Dose (mGy): 58.6;DAP (cm2.Gy): 622; Fluoroscopy time (minutes): 95.0
VALVE HEMODYNAMICS:
Preoperative
MR severity: Severe
Transmitral gradient (mmHg): 4
Postoperative
MR severity (0-4): moderate
Transmitral gradient (mmHg): 5
CONCLUSIONS:
1. Severe functional mitral valve regurgitation s/p successful ALEXANDRA using one NTW with reduction in mitral regurgitation from severe to moderate with extremely challenging anatomy precluding placement of a second clip due to paucity of posterior
leaflet length and a final mean transmitral gradient of 5mmHg at HR 74bpm.
RECOMMENDATIONS:
1. Routine post procedure care.
2. Transthoracic echocardiogram ordered for tomorrow morning.
3. Antithrombotic therapy with ASA and plavix
Lissa Roa MD, FACC, [facility]
Copy to: Lisseth Ridley
[2025-02-18] MEDS: LASIX 80 MG IV (12:54)
--- NOTE | 2025-02-18 16:40 | W.PN.UPDATE ---
Update Note
Progress Note Update
CTSP re: right groin bleed while up ambulating to bathroom. Returned to bed, manual compression held and pressure dressing applied. Groin is now soft, no ht/bleeding, non tender. To remain on bedrest until 5:30pm. Pt requesting acetaminophen for
headache, otherwise denies cp/palps/dyspnea or groin pain.
[2025-02-18] MEDS: TYLENOL 650 MG PO (16:46)
--- NOTE | 2025-02-18 18:53 | ITS.CL.PN ---
Construction Technician - Procedure Note
Procedure
Procedure Note:
Mitral Valve Transcatheter Jutv-ab-Kxig Repair with MitraClip
Date of Procedure: 02/18/2025
Referring: Dr. Fred Ridley MD
Indication: symptomatic severe mitral regurgitation
Operators: Daryl Hensley MD, PhD (interventional cardiology, co-coal drier operator); Dr. Lissa Villatoro MD (interventional cardiology, co-coal drier operator); Dr. Fred Ridley MD (cardiac imaging)
Anesthesia: general anesthesia provided by the anesthesia staff
PROCEDURE: mitral transcatheter [id number]-gh-[id number] repair with Mitraclip NTW clip x1
ACCESS: 25F right femoral vein (closure: Perclose x 2) - Ultrasound was utilized for vascular access. The vessel was visualized under ultrasound and noted to be patent. An image of the vessel was stored permanently in the patient's medical record.
Under direct ultrasound guidance, vascular access was obtained using a modified Seldinger technique and a 8 [place] sheath was placed.
PROCEDURE NARRATIVE:
The patient was intubated and sedated by anesthesiology and then prepped and draped in standard sterile fashion. A ISABEL probe was placed by cardiology and imaging performed demonstrating no left atrial appendage thrombus and no pericardial effusion.
Under ultrasound guidance, the right femoral vein was accessed. Two Perclose ProGlide sutures were placed in preclose fashion and an 8F sheath placed. Heparin was administered to achieve ACT>300.
Via the 8F sheath, a J-wire was placed in the SVC. The 8F sheath was exchanged for an 8.5F [place] VersaCross Sheath and the J-wire exchanged for a [place] Versa[place] RF wire. Under ISABEL guidance, the sheath was navigated to an appropriate posterior
superior portion of the septum. In a 4-chamber view, height above the mitral valve annulus was measured at 4.0 cm. Under RF application, the RF wire crossed into the LA and position was verified in the left upper pulmonary vein on ISABEL. The sheath
was advanced through the septum to dilate the septum. The sheath was then removed, and serial dilation of the venous access site performed followed by placement of the MitraClip sheath which was advanced to the septum and crossed into the left
atrium followed by removal of the wire and dilator. Left atrial pressure was measured at 15 mmHg.
Initial clip strategy was to place an NTW clip at the medial aspect of the wide jet with subsequent consideration for a second lateral NT clip. Given the heavily calcified posterior leaflet, we anticipated difficulty with finding sufficient
posterior leaflet tissue to grasp. A MitraClip NTW clip delivery system was prepared on the back table and advanced to the tip of the sheath. Under ISABEL guidance, the clip was advanced out of the sheath to straddle position and carefully maneuvered
until it was centralized above the valve plane. The clip was opened and grippers checked. Clip position, orientation, and trajectory were iteratively adjusted under 2D and 3D ISABEL guidance. In a grasping view, the clip was crossed into the LV.
Position and orientation were again verified with 2D and 3D ISABEL. The clip was carefully pulled back until anterior and posterior leaflet capture was observed and the grippers were then dropped with tissue capture observed. The clip was then closed
to 60 degrees, capture was verified, and the clip was then fully closed. Mitral regurgitation was assessed as moderate with the predominant jet located lateral to the clip. X-plane imaging lateral to the clip unfortunately demonstrated that there
was insufficient posterior leaflet tissue available for a second clip to be placed laterally. We considered several possibilities: accepting the result, optimizing the result by moving the clip slightly more lateral to possibly improve the lateral
jet, or transitioning to an XTW clip. An XTW clip was felt to be high risk for leaflet detachment given the very short posterior leaflet. We opted to attempt moving the clip more lateral. The clip was everted and removed from the ventricle and the
above procedure of clip positioning repeated. This was challenging due to poor imaging in setting of patient's hiatal hernia. In a more lateral position we were not convinced that there was sufficient leaflet to grasp safely. We instead
transitioning back to the initial more medial clip position and were able to achieve a similar result to our initial grasp with moderate residual MR laterally. Mitral gradient was 5 mmHg at HR 75 and MAP 75. Good tissues bridge was observed and we
felt confident that the posterior leaflet had been optimally gasped. Clip release was performed in the usual fashion and the clip was verified to be stable on ISABEL and fluoroscopy after release. There was no significant change in MR or mitral
gradients post release. The CDS was removed with the guide aspirated. Left atrial pressure was measured at 19 mmHg (in setting of 1L fluid administered during the case). The sheath was removed from the LA and there was observed to be an expected ASD
without significant R-L flow. There was no effusion. The sheath was removed from the venotomy and the venotomy closed with deployment of the PerClose sutures with excellent hemostasis verified. This concluded the procedure. The patient was extubated
by anesthesia and taken to the cath recovery unit in stable condition.
CONCLUSIONS: mitral transcatheter bmdm-nb-otms repair with placement of a Mitraclip NTW clip x1
RECOMMENDATIONS:
1. anticoagulation with DAPT for 3 months then ASA monotherapy
2. repeat TTE in AM
Copy to: Dr. Fred Ridley MD (molding machine tender); Dr. Evangelina Ortiz MD (PCP)
Signed: Daryl Hensley MD, PhD
--- NOTE | 2025-02-18 19:24 | PTCARENOTE ---
~1200: Received report from [facility].
~1320: Patient brought back from [facility]. Pt AOx4, V paced 70s on tele SBP 110s, 3L NC satting 100% weaned to 2L. Pt denies pain at this time. R groin site pressure dressing CDI and L radial dressing CDI. Pt bedrest until 1600. Pt reoriented to room and
call fernando system. Purewick in place. All needs met at thistime, call fernando within reach.
~7839-9241: Patient remains bedrest. Groin site CDI and radial site CDI. Pt denies pain at this time. Purewick in place, I/Os charted. All needs met at this time, call fernando within reach.
~0520-0467: Patient amblated to bathroom with Ax1 and cane, on the way back from the bathroom, R groin site rebled, Courtney Garcia SFDC DEVELOPER informed who forwarded message to Lorena Rodriguez SFDC DEVELOPER. Pressure held on groin for about 10 minutes, bleeding stopped
and new pressure dressing reapplied, no bleeding or hematoma present at this time. To SFDC DEVELOPER at bedside to assess patient and site. Instructions from Lorena to keep patient in bed until 1730 but HOB can stay at 30 degrees. Patient c/o pain, PRN
tylenol given.
~2310-5687: Groin site remains CDI and soft with no bleeding or hematoma noted. VSS. SBP 90s-100s. All needs met at this time, call fernando within reach. Handoff report given to nightshift RN.
[2025-02-18] MEDS: PLAQUENIL 200 MG PO (20:33)
[2025-02-18] MEDS: COREG PO (21:13)
[2025-02-18] MEDS: CRESTOR 10 MG PO (22:54)
[2025-02-19 03:36] VITALS: BP 100/48
[2025-02-19 03:40] VITALS: BP 100/48
[2025-02-19 03:58] VITALS: BMI 30.7
[2025-02-19 04:34] LABS: Hematocrit 26.4 % (37.0-47.0); Hemoglobin 8.5 g/dL (12.0-16.0); Mean Corp Hgb Conc. 32.2 g/dL (33.0-37.0); Mean Corpuscular Volume 89.8 fL (81.0-99.0); Platelet Count 162 10^3/uL (130-400); Red Cell Dist. Width 17.0 % (11.5-14.5)
[2025-02-19 05:07] LABS: Calcium 8.4 mg/dl (8.4-10.2); Carbon Dioxide 24 mmol/L (22-30); Chloride 105 mmol/L (98-107); Estimated Creatinine Clearance 20 ml/min; Glucose 115 mg/dl (70-99); Magnesium 2.3 mg/dl (1.6-2.3); Potassium 4.1 mmol/L (3.5-5.1); Sodium 136 mmol/L (135-145); eGFR 24.33
[2025-02-19 05:18] LABS: Blood Urea Nitrogen 33 mg/dl (7-17)
[2025-02-19] MEDS: SYNTHROID 50 MCG PO (06:18)
[2025-02-19 08:00] VITALS: BP 101/59
[2025-02-19] MEDS: LEXAPRO 20 MG PO (08:28)
[2025-02-19] MEDS: PLAQUENIL 200 MG PO (08:28)
[2025-02-19] MEDS: ASPIR LOW (ENTERIC COATED) 81 MG PO (08:28)
[2025-02-19] MEDS: PACERONE 200 MG PO (08:28)
[2025-02-19] MEDS: PLAVIX 75 MG PO (08:29)
[2025-02-19] MEDS: COREG 3.125 MG PO (08:29)
--- NOTE | 2025-02-19 10:02 | PTCARENOTE ---
Assumed care of the pt @ 0700. Pt is AAOx3 V paced on the monitor denies cp VSS. Rt groin cath site dressing c/d/i. Pt is 1 person assist with single point cane. Call fernando within reach. Bedside Echo done.
[2025-02-19 10:58] VITALS: BP 94/51
[2025-02-19 11:05] LABS: Hematocrit 27.0 % (37.0-47.0); Hemoglobin 8.8 g/dL (12.0-16.0)
--- NOTE | 2025-02-19 11:27 | W.PN.CARDCBS ---
Addendum entered and electronically signed by Jose G Warren MD 02/19/25 13:04:
Patient seen and examined in collaboration with BLOCK HACKER; agree with below.
- Patient is stable status-post MitraClip yesterday.
- Stable for discharge to home; outpatient follow-up with Cardiology.
Original Note:
Today's Communication / Plan
-
post ALEXANDRA Mitraclip
feels great, repeat Hbg stable
groin no further bleeding
f/u Echo with mild-mod MR, repeat in 1 mo
home today
Impression / Plan
-
PCP: Evangelina Ortiz MD
CDY: Lisseth Ridley MD
Impression/Plan:
#Severe Mitral regurgitation - post ALEXANDRA (Mitraclip) x 1 02/18/25, Echo shows MR went from Severe to mild-moderate
groin stable, tele AsVpaced,
groin with post procedure bleeding, this am Hbg dropped 10-8.5, repeat Hbg stable at 8.8
DAPT ASA/Plavix for 3 mo
Activity restrictions reviewed
f/u Echo in 1 mo, cardiac rehab c/s
f/u Dr. Hensley 1 mo
#Acute on chronic HFrEF 25-30% - IV lasix post procedure, -1290cc, denies sob, lungs clear
Will decrease lasix to 40mg daily and PRN 40mg for wt gain or swelling
continue GDMT limited severely by hypotension, UTI's, and LAVERN - continue cardvedilol 1.56 bid, lasix
Reviewed HF diet, I&O and daily wts
#Moderate
#PAD SMA stent 2019
#HTN with orthostatic hypotension
#HLD
#RA
#CKD 3a
#Vasculitis
02/19/25 TTE:
1. LVEF is approximately 25-30%. Global hypokinesis with septal dyskinesis.
2. Right ventricular size and systolic function are within normal limits.
3. Severely dilated left atrium left atrium.
4. Likely moderate aortic stenosis; peak/mean gradients 11/6 mmHg, calculated ANNA 1.4 cm² (low gradients in the setting of decreased LVEF).
5. Status post MitraClip installation. Mitral valve mean gradient is 6 mmHg. Mild to moderate mitral valve regurgitation.
6. Mild to moderate tricuspid regurgitation. Estimated pulmonary artery pressure of 40 mmHg assuming a right atrial pressure of 3 mmHg.
7. Compared to a prior transthoracic echocardiogram study from 12/03/2024, a MitraClip is now present. The previous calculated ANNA was 1.7 cm².
Progress Note - Health Care Sanitary Technician
Subjective
Date of Service: February 19, 2025
denies cp, sob
Objective
Labs:
02/19/25 10:47
02/19/25 03:58
Labs
Hgb 8.8 g/dL (12.0-16.0) L 02/19/25 10:47
Hct 27.0 % (37.0-47.0) L 02/19/25 10:47
Plt Count 162 10^3/uL (130-400) 02/19/25 03:58
PT 14.9 Sec (11.4-14.6) H 02/11/25 08:37
INR 1.14 02/11/25 08:37
Sodium 136 mmol/L (135-145) 02/19/25 03:58
Potassium 4.1 mmol/L (3.5-5.1) 02/19/25 03:58
BUN 33 mg/dl (7-17) H 02/19/25 03:58
Creatinine 2.0 mg/dL (0.6-1.0) H 02/19/25 03:58
Glucose 115 mg/dl (70-99) H 02/19/25 03:58
Vital Signs and I&O:
Vital Signs
Temp Pulse Resp BP Pulse Ox
98.6 F 70 14 101/59 94
02/19/25 10:58 02/19/25 10:58 02/19/25 10:58 02/19/25 08:00 02/19/25 10:58
Vital Signs
Temp Pulse Resp BP Pulse Ox
98.6 F 70 14 101/59 94
02/19/25 10:58 02/19/25 10:58 02/19/25 10:58 02/19/25 08:00 02/19/25 10:58
Intake & Output
02/17/25 02/18/25 02/19/25 02/20/25
06:59 06:59 06:59 06:59
Intake Total 1480 / 1480
Output Total 2770 / 2770
Balance -1290 / -1290
Physical Exam
Physical Exam
NAD< AOX3
S1, S2, RRR, II/ MARIBELL
CTAB, non labored, no wheeze
SNTND bsx4
R fem site c/d/i soft, no HT
--- NOTE | 2025-02-19 14:14 | CM ---
Chart reviewed. Patient is independent of ADLS, lives in a apartment [place] at [facility], ambulates with a SPC, rollator, shower chair. Patient is interested in Home PT. Referral sent to [facility] for Home PT. Plan is for the patient to return home
with CT Transitional RN. CM to follow
--- NOTE | 2025-02-19 14:21 | PTCARENOTE ---
Pt was discharged @ 1400 territory sales executive and 2 PIVs removed prior to dc. Pt was given written and verbal discharge instructions. Verbalized understanding. PCT escorted pt by wheelchair to lobby with her belongings.
--- NOTE | 2025-02-19 14:57 | W.DS.TRANS ---
DC Summary - Order Picker/Assembler
-
Discharge Instructions:
Discharge Diagnosis/Procedures MitraClip
Diet Low Fat,Low Cholesterol,2 Gram Sodium
Activity As tolerated
Driving Restrictions No driving for 1 week
Bathing Restrictions OK to Shower
Others Tests Your 30-day follow up echocardiogram is
scheduled for 03/20/2025 @ 10:20 at [facility]
Other Services Cardiac Rehab
Wound Care no lotions, powders, or creams to puncture sites
Specialty Instructions Weigh Daily
Instructions:
Stand-Alone Forms: DC Instructions- Cath/EP Lab
Changes to Home Medications: Yes
Discharge Medications:
DC Medications w/original date entered in [facility]
hydroxychloroquine 200 mg tablet 200 mg PO BID Rheumatoid arthritis 07/15/19
rosuvastatin 10 mg tablet 10 mg PO HS High cholesterol 12/31/19
clopidogrel 75 mg tablet 75 mg PO DAILY Heart disease/condition 01/03/20
esomeprazole magnesium 40 mg capsule,delayed release 40 mg PO DAILY Gastrointestinal issue 04/30/20
aspirin 81 mg tablet,delayed release 81 mg PO DAILY Blood clot prevention/tx 08/19/20
cholecalciferol (vitamin D3) 50 mcg (2,000 unit) tablet 2,000 units PO DAILY Supplement 08/19/20
escitalopram oxalate 20 mg tablet 20 mg PO DAILY Depression 03/10/24
methotrexate sodium 2.5 mg tablet 7.5 mg PO SA rheumatoid arthritis 03/10/24
folic acid 1 mg tablet 3 mg PO DAILY Supplement 03/11/24
amiodarone 200 mg tablet 200 mg PO DAILY Heart Disease/Condition 09/11/24
carvedilol 3.125 mg tablet 1.56 mg PO BID Blood Pressure 09/11/24
cranberry extract 425 mg capsule 425 mg PO DAILY Supplement 09/20/24
levothyroxine 50 mcg tablet 50 mcg PO DAILY Thyroid 09/20/24
zorromuh-oxzujjgtbtq-bqjvhoqgp 250 mg 02/18/25
furosemide 40 mg tablet 40 mg PO DAILY Fluid Retention/Swelling #0 tabs 02/19/25
Home Medication Changes
decrease lasix dose
Pending Results: No
== END 2025-02-19 14:16 | disposition home or self-care (01) | DRG 266 ==
LOC: IVU 04:56
PROVIDERS: Internal Medicine Cardiovascular Disease; Nurse Practitioner Adult Health; ADMITTING PHYSICIAN Student in an Organized Health Care Education/Training Program; FAMILY PHYSICIAN Internal Medicine
PROC: 02UG3JZ Supplement Mitral Valve with Synthetic Substitute, Percutaneous Approach (ICD-10-PCS; 2025-02-18)
PROC: B246ZZ4 Ultrasonography of Right and Left Heart, Transesophageal (ICD-10-PCS; 2025-02-18)
DX: I34.0 Nonrheumatic mitral (valve) insufficiency (principal); Z00.6 Encounter for examination for normal comparison and control in clinical research program; I50.23 Acute on chronic systolic (congestive) heart failure; I13.0 Hypertensive heart and chronic kidney disease with heart failure and stage 1 through stage 4 chronic kidney disease, or unspecified chronic kidney disease; N17.9 Acute kidney failure, unspecified; I73.9 Peripheral vascular disease, unspecified; I95.1 Orthostatic hypotension; N18.30 Chronic kidney disease, stage 3 unspecified; K44.9 Diaphragmatic hernia without obstruction or gangrene; E78.5 Hyperlipidemia, unspecified; M06.9 Rheumatoid arthritis, unspecified; I77.6 Arteritis, unspecified; Z60.2 Problems related to living alone; Z95.828 Presence of other vascular implants and grafts; Z87.440 Personal history of urinary (tract) infections
CPT/HCPCS: 33418; 36415; 71046; 80048; 80053; 81003; 81015; 82248; 83036; 83735; 83880; 85014; 85018; 85025; 85027; 85347; 85610; 86850; 86900; 86901; 87070; 87077; 87086; 87186; 93005; 93308; 93312; 93320; 93321; 93325; C1760; C1769

== ENCOUNTER → 2025-03-20 10:09 | Outpatient (REF) | payer MEDICARE, BC, SELFPAY | LOC: RCS 10:09 | PROVIDERS: ATTENDING PHYSICIAN Internal Medicine Cardiovascular Disease; FAMILY PHYSICIAN Internal Medicine | DX: I34.0 Nonrheumatic mitral (valve) insufficiency (principal) | CPT/HCPCS: 93306 ==